=== PATIENT | male | born 1950 | race African-American/Black ===

== ENCOUNTER → 2023-07-24 09:31 | Outpatient (REF) | payer OTHER, SELFPAY | LOC: HWRAD 09:31 | PROVIDERS: ATTENDING PHYSICIAN Nurse Practitioner | DX: E04.1 Nontoxic single thyroid nodule (principal) | CPT/HCPCS: 76536 ==

== ENCOUNTER → 2023-08-15 10:11 | Outpatient (REF) | payer OTHER, SELFPAY | LOC: HWRCS 10:11 | PROVIDERS: ATTENDING PHYSICIAN Nurse Practitioner | DX: I10 Essential (primary) hypertension (principal) | CPT/HCPCS: 93306 ==

== ENCOUNTER → 2023-10-16 12:59 | Outpatient (REF) | payer OTHER, SELFPAY | LOC: HWRAD 12:59 | PROVIDERS: ATTENDING PHYSICIAN Specialist; FAMILY PHYSICIAN Nurse Practitioner | DX: N18.2 Chronic kidney disease, stage 2 (mild) (principal) | CPT/HCPCS: 76775 ==

== ENCOUNTER 2024-03-08 19:30 | Inpatient (IN) | payer OTHER, SELFPAY ==
[2024-03-08 13:42] VITALS: BP 165/95
[2024-03-08 14:11] LABS: % Basophils 0.5 % (0-2); % Immature Granulocytes 0.2 % (0-0.5); % Lymphocytes 27.8 % (20.5-51.1); % Monocytes 5.9 % (1.7-9.3); % Neutrophils 64.6 % (42.2-75.2); Absolute Eosinophils 0.1 10^3/uL (0-0.7); Absolute Lymphocytes 1.7 10^3/uL (1.2-3.4); Absolute Monocytes 0.4 10^3/uL (0.1-0.6); Absolute Neutrophils 3.9 10^3/uL (1.4-6.5); Hematocrit 41.8 % (39.0-52.0); Hemoglobin 14.3 g/dL (13.0-18.0); Mean Corp Hgb Conc. 34.2 g/dL (33.0-37.0); Mean Corpuscular Hgb 28.8 pg (27.0-31.0); Mean Corpuscular Volume 84.3 fL (80.0-94.0); Mean Platelet Volume 9.3 fL (7.4-10.4); Nucleated Red Blood Cells % 0 % (-); Platelet Count 303 10^3/uL (130-400); Red Blood Cell Count 4.96 10^6/uL (4.70-6.10); Red Cell Dist. Width 13.2 % (11.5-14.5); White Blood Cell Count 6.1 10^3/uL (4.8-10.8)
[2024-03-08 14:25] LABS: ALT (SGPT) 19 U/L (0-50); AST (SGOT) 27 U/L (17-59); Albumin 4.1 g/dl (3.5-5.0); Alkaline Phosphatase 95 U/L (38-126); Blood Urea Nitrogen 14 mg/dl (9-20); Calcium 9.8 mg/dl (8.4-10.2); Carbon Dioxide 28 mmol/L (22-30); Chloride 102 mmol/L (98-107); Glucose 121 mg/dl (70-99); Potassium 4.1 mmol/L (3.5-5.1); Sodium 141 mmol/L (135-145); Total Bilirubin 0.7 mg/dl (0.2-1.3); Total Protein 7.5 g/dl (6.3-8.2); eGFR 49.16
[2024-03-08 14:38] LABS: Troponin I < 0.012 ng/ml
[2024-03-08 15:58] LABS: Glucose - Point of Care 102 mg/dl (70-99)
[2024-03-08 16:00] VITALS: BP 176/98
--- NOTE | 2024-03-08 16:46 | ED.GENMED ---
History of Present Illness
General
Chief Complaint: Weakness
Time Seen by Provider: 03/08/24 16:32
History of Present Illness
History of Present Illness:
Patient presents to the emergency department with weakness and difficulty walking. He notes that his left arm feels very weak and he was having some difficulty with ambulation today. His notes that he has been seeing a neurologist for
worsening cognitive deficits recently. She notes that he has been leaning to his left while walking for months.
If applicable-neuro sx onset
Onset of symptoms known: No
Time pt last seen normal is known: No
Past History
Past History
ED Past Medical History: HTN and NIDDM
Social History
Personal:
Living: with family
Employment: Retired
Family History
Family History: Other
Phy Exam
Physical Exam
Physical Exam:
GENERAL APPEARANCE: NAD, well developed/ well nourished
EYES lids/conjunctiva normal
EARS/NOSE/THROAT Mucous membranes moist, uvula midline without oral pharyngeal erythema, exudate or swelling
HEAD/NECK normocephalic atraumatic, neck is supple.
RESPIRATORY respiratory effort normal, speaks in full sentences, no accessory muscle use. Lungs clear to auscultation without rhonchi, wheezes, rales
CARDIAC Regular rate and rhythm, no edema.
ABDOMINAL Soft, ND/NT. No pulsatile masses on exam, rebound tenderness, Sevilla sign or pain over Mcburney's point.
MUSCLES/EXTREMITIES No abnormal range of motion, no swelling.
SKIN Warm, pink and dry. No rashes
NEUROLOGICAL Speech is clear and appropriate. Normal level of consciousness. Cranial nerve exam notable for left-sided central facial nerve palsy. Otherwise cranial nerves II through XII are intact. There is weakness in the left upper extremity
with drift though he does not touch the bed. No ataxia. Sensation intact to light touch throughout.
PSYCH Normal mood and affect. Judgement/competence is appropriate
NIH Stroke Score
Level of Consciousness: 0 - Alert
LOC questions: 0-Answers both correctly
LOC Commands: 0-Performs both correctly
Best Gaze: 0-Normal
Visual Benedict: 0=Normal, no visual loss
Facial palsy: 1=Minor paralysis
Motor - Right Arm: 0=No drift 10 seconds
Motor - Left Arm: 1=Drift < 10 seconds
Motor - Right Le-No drift 5 seconds
Motor - Left Le-No drift 5 seconds
Limb Ataxia: 0-Absent
Sensation: 0-Normal
Best Language: 0-No aphasia
Dysarthria: 0-Normal
Extinction and Inattention: 0-No abnormality
Total Score:: 2
Course
Orders/Labs/Results
Orders:
Orders
03/08/24 13:44
ECG [Electrocardiogram (*1)] Urgent
Reason for Study: Fatigue / Weakness
03/08/24 13:45
EKG- Treatment ONCE
03/08/24 13:58
Complete Blood Count/With Diff Urgent
Comprehensive Metabolic Panel Urgent
Glycohemoglobin (HgbA1c) Urgent
Troponin I Urgent
03/08/24 16:55
CT Head W/o Iv Contrast Urgent
Comment:
Reason For Exam: L sided facial droop, l arm weakness
03/08/24 17:58
0.9% Sodium Chloride 500 ml [Nss] 500 ml IV BOLUS
03/08/24 17:59
Aspirin 325 mg PO NOW STA
03/08/24 18:46
Admit/Transfer Patient As Directed
Co-Sign Provider:
Level of Care: Inpatient admission
Assign to:: Telemetry
Physician / Group: Isaak Sylvester
Diagnosis: CVA/TIA
Reason for Telemetry: CVA/TIA
Date to Stop Telemetry: 03/11/24
Time to Stop Telemetry: 11:00
Reason for Hospitalization: CVA/TIA
Expected length of stay greater than two midnights?: Yes
ELOS- Estimated Length of Stay in days: 3
I certify the patient meets the requirements for IP care: Yes
03/08/24 18:47
Code Status As Directed
Resuscitation Status: Full Code
PRN Pain Medication Management As Directed
May give lesser potent ordered pain med per pt: Yes
preference::
Protocol:: Medication orders for pain may be administered in a
manner that supports deferring to patient preference
when the pt is:
- Requesting an ordered lesser potent pain medication.
Least to most potent pain medications are defined
as: acetaminophen < NSAID < tramadol < opioids
(morphine, oxycodone, hydromorphone).
- Requesting a lesser dose of the same medication IF
ORDERED.
- Requesting a less intrusive route of administration
if both routes are prescribed by the provider (PO <
IV).
03/08/24 19:43
Urinalysis Urgent
Date Specimen was Collected: 03/08/24
Time Specimen was Collected: 16:56
Urine Microscopic Urgent
Date Specimen was Collected: 03/08/24
Time Specimen was Collected: 16:56
03/08/24 20:24
Acetaminophen [Tylenol/Feverall] 650 mg RECTAL Q4HPRN PRN
Acetaminophen [Tylenol] 650 mg PO Q4HPRN PRN
03/08/24 20:24
Type+Screen Routine
Case Management Consult ONCE
Case Management Consult: Discharge Planning
Comment: stroke/tia
DIETARY CONSULT Routine
Reason for Consult: stroke/TIA
NEUROLOGY CONSULT Urgent
Consulting Provider: Rustam Ca
Was physician already notified: Yes
Live Out [place] Urgent
PTT Routine
Prothrombin Time Routine
Troponin I Routine
MRI Brain [MR Brain Without Contrast] Routine
Comment:
Reason For Exam: CVA/TIA
Recent pill cam endoscopy?: Yes
Activity As Directed
Activity Level: With Assistance
NIH Stroke Scale As Directed
Directions: Per protocol
Comment: every shift and with any change in condition or mental status
Neurological Checks As Directed
Frequency: q4h
Additional Instructions:: q4h x 24h upon admission to the floor, then qshift & with any change in condition
and mental status
Patient Education As Directed
Type: Stroke education packet
Comment: provide to patient and family
Pneumatic Compression Sleeves As Directed
Type: Knee high
Swallow Screening CVA/TIA ONLY As Directed
Comment: NPO until swallowing screening completed
If patient FAILS swallow screening:: NPO, Speech Therapy consult, Aspiration Precautions
If patient PASSES swallow screening, diet:: 2000 sandy/ 17 CHO Diabetic
Vital Signs As Directed
Frequency: Per unit guidelines
Weight As Directed
Frequency: Daily
Ot Eval And Treat Routine
Pt Eval And Treat Routine
Activity Level: With Assistance
Speech Therapy Eval & Treat Routine
DX Deep Vein Thrombosis Video Routine
03/08/24 22:00
Donepezil [Aricept] 5 mg PO HS
Quetiapine Fumarate [Seroquel] 25 mg PO HS
03/09/24 06:00
Cardiovascular Evaluation IN AM
Complete Blood Count/No Diff IN AM
03/09/24 08:00
Aspirin Chewable [Low Strength Aspirin] 81 mg PO DAILY
Atorvastatin [Lipitor] 80 mg PO DAILY
Cyanocobalamin [Vitamin B-12] 2,500 mcg PO DAILY
Furosemide [Lasix] 40 mg PO DAILY
Lisinopril [Zestril] 40 mg PO DAILY
Tamsulosin [Flomax] 0.4 mg PO DAILY
03/10/24 06:00
Complete Blood Count/No Diff IN AM
03/11/24 06:00
Complete Blood Count/No Diff IN AM
03/11/24 11:00
DC Protocol for Telemetry ONCE
03/13/24 08:00
Ergocalciferol [Drisdol (Vitamin D2)] 50,000 units PO FR
Abnormal Lab Results
03/08/24 03/08/24
13:58 15:57
Creatinine 1.5 H mg/dL
(0.7-1.3)
Glucose 121 H mg/dl
(70-99)
POC Glucose 102 H mg/dl
(70-99)
03/08/24 13:58
03/08/24 13:58
Vital Signs
Initial and Last Documented VS:
Initial Vital Signs
Temp Pulse Resp BP Pulse Ox
98.3 F 88 18 165/95 98
03/08/24 13:42 03/08/24 13:42 03/08/24 13:42 03/08/24 13:42 03/08/24 13:42
Last Documented Vital Signs
Temp Pulse Resp BP Pulse Ox
98.5 F 84 18 133/86 97
03/08/24 20:05 03/08/24 20:05 03/08/24 20:05 03/08/24 20:05 03/08/24 20:05
*Critical Care Note
Total Time (30-74mins, 75-104mins- exclusive of procedures): Not Applicable
ED Attending Note
ED Attending Note
ED Attending Note:
Patient presents with acute to subacute CVA. Unknown last well given he has been leaning to the left for quite some time and is unable to appreciate his left-sided facial. He is out of the window for TNK. Will workup for CVA
-
Portions of this chart may have been created with voice recognition software.� Occasional wrong word or��sound alike� substitutions may have occurred due to the inherent limitations of voice recognition software.
Discharge Plan
Departure
Patient Disposition: Admit
Date of Disposition: 03/08/24
Time of Disposition: 18:00
Admit to doctor: hospitalist
Presentation/result/management discussed w/ accepting MD/DO: Hospitalist
Discharge Problem:
Acute CVA (cerebrovascular accident), KVNG (acute kidney injury)
Interventions
Interventions:
*Risk Screen - Suicide Last Done: 03/08/24 16:18
*General Assessment Last Done: 03/08/24 13:42
*Neglect/Abuse Screening Last Done: 03/08/24 16:10
*ED COVID-19 Vaccine History Last Done: 03/08/24 16:10
*Nursing Disposition Last Done: 03/08/24 19:47
ED- Cardiac Assessment Last Done: 03/08/24 16:10
ED- Neurological Assessment Last Done: 03/08/24 18:01
ED- Pulmonary Assessment Last Done: 03/08/24 16:10
Discharge Date and Time
Discharge Date/Time: 03/08/24 19:48
[2024-03-08 18:00] VITALS: BP 147/95
[2024-03-08] MEDS: ASPIRIN 325 MG PO (18:02)
[2024-03-08] MEDS: NSS 500 IV (18:03)
--- NOTE | 2024-03-08 18:11 | HPS.HSE ---
Family Physician
-
Family Physician: LOBITO Dickens
Chief Complaint
-
weakness
History of Present Illness
Patient is a 73-year-old male with past medical history significant for hypertension, hyperlipidemia, PAD, type 2 diabetes, HFpEF, and chronic kidney disease who presented to [facility] for evaluation of acute onset weakness and difficulty
walking. Patient has been following with neurology recently for worsening cognitive deficits. reports patient has been leaning to left while walking for months. Patient reports recent chills with diarrhea last week. Denies any fever, cough,
shortness of breath, chest pain, nausea, vomiting, constipation, diarrhea or urinary symptoms.
Medical History
Past Medical History
Past Medical History: Reports Other
Additional Past Medical History:
hypertension
hyperlipidemia
PAD
type 2 diabetes
HFpEF
chronic kidney disease
Past Surgical History: Reports Other
Additional Past Surgical History:
left Achilles tendon
left hand surgery
Social History
Tobacco: Former Smoker
Alcohol: Former
Drug: None
Personal:
Living: With Family
Employment: Retired
Family History
Family History: Other (Father: CVA, Larynx cancer; Mother: Lung cancer; Sister; CVA, lung cancer; Brother: Brain cancer)
Allergies / Home Medications
Allergies reflects when Allergies were last updated in [facility].
Home Medications with original date entered in [facility]
Allergy/Medication List:
Allergies
Allergy/AdvReac Type Severity Reaction Status Date / Time
No Known Allergies Allergy Verified 03/08/24 13:44
Home Medications
aspirin 81 mg chewable tablet 81 mg PO DAILY 05/24/09
atorvastatin 80 mg tablet 80 mg PO DAILY 03/08/24
cholecalciferol (vitamin D3) 1,250 mcg (50,000 unit) tablet 1,250 mcg PO FR 03/08/24
cyanocobalamin (vitamin B-12) 2,500 mcg tablet 2,500 mcg PO DAILY 03/08/24
donepezil 5 mg tablet 5 mg PO HS 03/08/24
furosemide 40 mg tablet 40 mg PO DAILY 03/08/24
lisinopril 40 mg tablet 40 mg PO DAILY 03/08/24
metformin 500 mg tablet 1,000 mg PO BID 03/08/24
quetiapine 25 mg tablet 25 mg PO HS 03/08/24
semaglutide 2 mg/dose (8 mg/3 mL) subcutaneous pen injector (Ozempic) 2 mg SC SA 03/08/24
tamsulosin 0.4 mg capsule 0.4 mg PO DAILY 03/08/24
Review of Systems
-
History Source: Patient
Constitutional: Reports Chills
EENT: Reports No Symptoms
Respiratory: Reports No Symptoms
Cardiac: Reports No Symptoms
Abdomen/GI: Reports Diarrhea
: Reports No Symptoms
Musculoskeletal: Reports No Symptoms
Skin: Reports No Symptoms
Neurological: Reports Weakness
Endocrine: Reports No Symptoms
Hematologic/Lymphatic: Reports No Symptoms
Psych: Reports No Symptoms
Physical Exam
Vital Signs
Vital Signs
Temp Pulse Resp BP Pulse Ox
98.3 F 74 17 176/98 98
03/08/24 13:42 03/08/24 17:52 03/08/24 17:52 03/08/24 16:00 03/08/24 13:42
Physical Exam
General: Well Developed, Well Nourished, No Apparent Distress, Comfortable and Conversant
HEENT: NormoCephalic, Moist mucous membranes, Atraumatic, PERRLA, Hominy Conjunctivae, Nose Appears Normal and Ears Appear Normal
Respiratory: Clear and Non Labored Respirations; No Wheezes, Rales, Rhonchi or Crackles
Cardiac: S1/S2 and Regular Rhythm; No Murmur, Rub or Gallop
Breast: Deferred by me
GI: Soft, Non Tender, Non Distended and Normal Bowel Sounds; No Organomegaly
Rectal: Deferred by Provider
Genito-urinary: Deferred by me
Musculoskeletal: No Clubbing, No Cyanosis and No Edema
Skin: Warm and IV/Catheter Site; No Rash
Neuro: Awake, Alert, Nonfocal/grossly intact, Facial Droop (mild left sided droop) and Other (significant left sided weakness in upper and lower extremity)
Hematologic/Lymphatic: No Lymphadenopathy
Psych: Calm
Laboratory Results
-
03/08/24 13:58
03/08/24 13:58
Laboratory Results
Total Bilirubin 0.7 mg/dl (0.2-1.3) 03/08/24 13:58
AST 27 U/L (17-59) 03/08/24 13:58
ALT 19 U/L (0-50) 03/08/24 13:58
Alkaline Phosphatase 95 U/L (38-126) 03/08/24 13:58
Troponin I < 0.012 ng/ml 03/08/24 13:58
Data Reviewed
-
CT Scan: Report Reviewed by me (Head: No acute intracranial abnormalities. Small old right thalamic lacunar infarct. Findings again seen compatible with diffuse cortical atrophy with nonspecific white matter changes as described above.)
Medical Tests (Nuc Med, Echo, EKG etc): Report Reviewed by me (EKG: NORMAL SINUS RHYTHM NONSPECIFIC T WAVE ABNORMALITY ABNORMAL ECG WHEN COMPARED WITH ECG OF 20-JAN-2022 16:43, NONSPECIFIC T WAVE ABNORMALITY NOW EVIDENT IN INFERIOR LEADS)
Lab Data: Labs Reviewed by me (BUN 14, Creat 1.4, )
Impression/Plan
-
IMPRESSION/PLAN:
#CVA/TIA vs. infectious process
Acute onset weakness and difficulty walking
Leaning to left with walking for significant period of time
Head CT: cortical atrophy and old thalamic infarct
- Admit to telemetry
- Neuro checks
- NIH
- Consult Neurology
- MRI tomorrow
- Encourage oral fluids as tolerated
- PT/OT
#acute on chronic kidney disease
BUN 14, Creat 1.5
- acute in setting of likely dehydration
- follow BMP
#dementia
seeing Neurology outpatient
- continue donepezil and quetiapine
#benign hypertension
hypertensive 176/88
- continue furosemide, lisinopril
- monitor VS
#hyperlipidemia
#PAD
- continue atorvastatin
#type 2 diabetes
- hold metformin
- continue semaglutide
- Accuchecks AC & HS
- SSI
#HFpEF
Echo (08/2023): Normal left ventricular size, wall thickness and systolic function. LV ejection fraction is 60-65%.
- continue aspirin, and furosemide
- daily weights
Code Status: Full Code
DVT Prophylaxis: SCDs
[2024-03-08 19:00] VITALS: BP 172/86
--- NOTE | 2024-03-08 19:51 | W.PN.UPDATE ---
Update Note
Progress Note Update
Attending addendum:
73-year-old man with past medical history of:
hypertension,
hyperlipidemia,
PAD,
type 2 diabetes,
HFpEF,
chronic kidney disease
who comes in because of acute onset weakness and difficulty walking. He is followed by neurology for worsening cognitive deficits. reports patient has been leaning to left while walking for months. Patient reports recent chills with diarrhea
last week. Right now he denies any fever, cough, shortness of breath, chest pain, nausea, vomiting, constipation, diarrhea or urinary symptoms. Onset and nature of symptoms made him not eligible for TPA. He was comfortable at the time of my
interview.
Past Medical History
hypertension
hyperlipidemia
PAD
type 2 diabetes
HFpEF
chronic kidney disease
Past Surgical History: Reports Other
Additional Past Surgical History:
left Achilles tendon
left hand surgery
Physical Exam
General: Well Developed, Well Nourished, No Apparent Distress, Comfortable
HEENT: NormoCephalic, Moist mucous membranes, Atraumatic,
Respiratory: Clear and Non Labored Respirations; No Wheezes, Rales, Rhonchi or Crackles
Cardiac: S1/S2 and Regular Rhythm; No Murmur, Rub or Gallop
Neuro: Awake, Alert, Nonfocal/grossly intact,
mild left sided droop
left sided weakness in upper and lower extremity
Psych: Calm
CT Scan: No acute intracranial abnormalities.
Small old right thalamic lacunar infarct.
Findings again seen compatible with diffuse cortical atrophy with nonspecific white matter changes
IMPRESSION/PLAN:
1. CVA/TIA vs. infectious process activating old stroke
- Admit to telemetry
- Neuro checks
- NIH
- Consult Neurology
- MRI tomorrow
- Encourage oral fluids as tolerated
- PT/OT
Please see mid-level note for full details on the following:
acute on chronic kidney disease
dementia
benign hypertension
hyperlipidemia
PAD
type 2 diabetes
HFpEF
[2024-03-08 20:00] VITALS: BMI 35.7
[2024-03-08 20:05] VITALS: BP 133/86
[2024-03-08 20:23] LABS: Urine Albumin 3+ (Neg - Trace); Urine Bilirubin Negative (Negative); Urine Character Clear (Clear); Urine Color Amber; Urine Glucose Trace (Negative); Urine Ketone Negative (Negative); Urine Leukocyte Negative (Negative); Urine Nitrite Negative (Negative); Urine Occult Blood Trace (Negative); Urine Specific Gravity 1.025 (<1.030); Urine Urobilinogen Negative (Neg - 1+)
[2024-03-08 20:44] LABS: Urine Bacteria Few (Negative); Urine Hyaline Cast >15 /LPF (0-2); Urine Mucus Moderate; Urine Red Blood Cell 0-2 /HPF (0-2); Urine Squamous Cell 0-2 /LPF (Few); Urine White Cell 0-2 /HPF (0-5)
[2024-03-08] MEDS: ARICEPT PO (21:46)
[2024-03-08] MEDS: SEROQUEL PO (21:46)
--- NOTE | 2024-03-08 21:47 | PTCARENOTE ---
Addendum entered by Melyssa Solares RN 03/09/24 00:59:
Patient bed alarm sounded, patient laying across end of the bed stating he has to get up to the bathroom. Patient assisted to sit on the side of the bed and use urinal. Patient very weak, unable to hold self up on side of bed. Patient apologetic
about earlier behavior and now agreeable to take meds and participate in NIH. All missed labs already retimed for the morning by pharmacy. Bed alarm remains in place for patient safety.
Original Note:
Received pt from ED @ 1999. Pt pulled over to bed, VSS. Pt oriented X3. When in to draw blood, patient quickly became agitated and confused, refusing blood work to be drawn. Attempted to reorient patient to situation and explain plan of care but
patient very argumentative and increasingly agitated. Returned thirty minutes later to attempt to give meds and perform NIH. Patient refusing to take meds and participate in NIH, stating 'why?' and 'I don't like your attitude' when asked to do
anything. Patient attempting to get OOB, is able to move all extremities with good strength to sit up and scoot up in the bed. Bed alarm in place for patient safety.
[2024-03-09] VITALS (8 sets, daily range): BP systolic 170–191; BP diastolic 85–106; BMI 35.7
[2024-03-09] MEDS: ARICEPT 5 MG PO ×2 (00:48→20:29)
[2024-03-09] MEDS: SEROQUEL 25 MG PO ×2 (00:48→20:29)
--- NOTE | 2024-03-09 08:17 | CON.NEURO ---
Neuro Assessment/Plan
Assessment
Acute onset of left arm and leg weakness
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
Plan
Check MRI of the brain as planned
Check MRA head and neck, as CTA is at risk of causing additional renal injury
Provide aspirin and initiate clopidogrel due to risk of acute ischemic stroke
Goal of permissive hypertension until 24 hours after onset of symptoms, then normotension
Atorvastatin 80 mg daily
Medical educational materials to be provided
DVT prophylaxis
Goal of normoglycemia
Rehabilitation evaluations
Continue cyanocobalamin
Continue donepezil 5 mg daily
Likely will need case management evaluation as the patient has a history of medical noncompliance
Will follow
Consultation
Order
Date of Consultation: 03/09/24
Requesting Provider:
Reason for Consult:
Subjective/Objective
Subjective Data
Date of Service: March 09, 2024
Adapted from outpatient records with last evaluation by my former esteemed colleague:
'Start Donepezil HCl Tablet, 5 MG, 1 tablet at bedtime, Orally, Once a day, 30 days, 30, Refills 5
PROCEDURE: Neuropsychology
Notes: -willing to restart Aricept 5mg qhs; reviewed potential s/e, how medication works and what the goals of taking it are
-does not want any medication for mood
-willing to get [employer] testing done; reviewed process, location of testing, how to set it up
-reviewed differential for memory issues, how untreated sleep apnea can contribute; I will ask my office to see what the next step is to get him a CPAP
Follow Up
4 Weeks
History of Present Illness
Memory Loss:
Evaluation from Dr. Ca:
'History from patient
Since last visit:
09/2023
Unable to walk normally since 2021
Mood decline
Didn't perform Neuropsychological testing
Prior evaluation: presentation to PCP, Neurosurgeon x 2
Previous testing: blood work
CT of head
MRI of brain October 2021, no evidence of normal pressure hydrocephalus, suggestion of subacute to chronic left parietal ischemic stroke by official report
[employer] Cognitive Testing 12/2021 demonstrated significantly below expected cognitive function compared with matched peers (81%).
There was an associated mood disorder in the form of depression by survey performed with the [employer] test.
MRA neck and head: 08/2022 no stenosis
Prior medication(s): Donepezil
Side-effects with medications: N/A
Previous treatment(s): none
Frequency: Fell once in September 2021
Intensity: N/A
Duration: chronic
Duration of symptom: intermittent
Etiology: presumed to not be due to normal pressure hydrocephalus; behavioral-variant frontotemporal dementia (bv-FTD)
Associated symptom(s): Gait dysfunction, short-term memory, intermittent mood issues
Driving status: issues out of batool at times, reduced driving since 09/2021
Financial status: no issues --> no issues
Hobbies: no issues --> none
Improving factors: unclear to patient
Worsening factors: unclear to patient
Unchanged by factors: unclear to patient
Severity: significant
~~~~
Right-Handed
Began (prior to initial evaluation in this office):
12/2021
Incontinence of urine since 2020, known untreated prostate issue
Memory loss started 07/2021, unclear if progressive, patient disagrees that same is present
Shuffling gait
Headaches lifelong, without significant change, most recent 6 months ago (06/2021)
09/2021 Fell head-first while walking then had CT of head
then met with Neurosurgery who suggested normal pressure hydrocephalus (NPH)
then MRI of brain which did show prior stroke according to Neurosurgery then met with second Neurosurgeon
at [place] who suggested absence of NPH
08/2022
[employer] Cognitive Testing completed
10/2022
Completed sleep study
Unable to afford CPAP
>> 12/2022
Ran out of medicine Donepezil
Didn't perform Neuropsychological testing'
10/29: He is switching to my practice. He did not start Aricept or medication for mood. He did not get [employer] testing done. He wanted to get a CPAP but found it expensive. He is willing to reconsider this.'
Patiient presented due to falling and inability to walk. Left-side is weak
Objective Data
Vital Signs
Temp Pulse Resp BP Pulse Ox
36.7 C 73 20 181/96 97
03/09/24 07:40 03/09/24 07:40 03/09/24 07:40 03/09/24 07:40 03/09/24 07:40
Lab Results
03/08/24 13:58
Sodium 141 mmol/L (135-145) 03/08/24 13:58
Potassium 4.1 mmol/L (3.5-5.1) 03/08/24 13:58
BUN 14 mg/dl (9-20) 03/08/24 13:58
Glucose 121 mg/dl (70-99) H 03/08/24 13:58
Calcium 9.8 mg/dl (8.4-10.2) 03/08/24 13:58
Patient Allergies
No Known Allergies Allergy (Verified 03/08/24 13:44)
CVA Assessment
Onset of Stroke Symptoms
Onset of symptoms known: Yes
Date of onset of symptoms: 03/09/24
Time of onset of symptoms: 05:00
Time pt last seen normal is known: Yes
Date last time pt seen normal: 03/08/24
Time last time pt seen normal: 19:00
NIH Stroke Score
Level of Consciousness: 0 - Alert
LOC Questions: 0-Answers both correctly
LOC Commands: 0-Performs both correctly
Best Horizontal Gaze: 0-Normal
Visual Benedict: 0=Normal, no visual loss
Facial Palsy: 0=Normal, symmetrical
Motor - Right Arm: 0=No drift 10 seconds
Motor - Left Arm: 1=Drift < 10 seconds
Motor - Right Le-No drift 5 seconds
Motor - Left Le-No drift 5 seconds
Limb Ataxia: 0-Absent
Sensation: 0-Normal
Best Language: 0-No aphasia
Dysarthria: 0-Normal
Extinction and Inattention: 0-No abnormality
Total Score:: 1
Tenecteplase Contraindications
Inclusion and Exclusion criteria reviewed: Yes
IAT Contraindications: NIHSS < 6
Review of Systems
-
Unable to obtain full review of systems at this time due to: Dementia
History Source: Patient
All other systems: Reviewed and negative
EENT: Blurry Vision; Negative Hearing Loss or Swallowing Difficulty
Respiratory: Negative Trouble Breathing
Cardiac: Negative Chest Pain
Abdomen/GI: Negative Incontinence of Stool
Genitourinary: Negative Incontinence
Physical Exam
-
General: No Apparent Distress, Obese and Appears Stated Age
Eyes: Round OU, Spur Conjunctivae and No Ptosis
HEENT: Anicteric and Moist Mucous Membranes
Neck: Full Range of Motion
Respiratory: No Dyspnea
Cardiac: No JVD
GI: Non-distended
Extremities: No Clubbing, No Cyanosis and No Edema
Psych: Negative Intact Judgement/Insight
Extended Neurological Exam
Mood & Affect: Negative Affect Unremarkable (Easily irritable)
Attention Span & Concentration: Awake, Alert and Interactive
Memory: Able to Recall (month and year) and Reduced (for current location, did not recall meeting this interviewer previously)
Tremor: Hand Tremor Absent and Head Tremor Absent
Involuntary Movement: None
Speech: Quality Unremarkable and Quantity Unremarkable
Cranial Nerve II: Left Eye: Pupillary Reactivity Unremarkable, Pupillary Size Unremarkable, Visual Benedict Intact and Smaller than Contralateral
Cranial Nerve II: Right Eye: Pupillary Reactivity Unremarkable, Pupillary Size Unremarkable and Visual Benedict Intact; Negative Smaller than Contralateral
Cranial Nerves III, IV, : Extraocular Movement: Extraocular Movement Full in all Directions
Cranial Nerve VII: Facial Symmetry: Normal Facial Symmetry
Cranial Nerve VIII: Hearing: Unremarkable Hearing to Normal Conversational Volume
Cranial Nerves IX, X: Palate Movement: Palate Elevation Symmetric
Cranial Nerve XI: Shoulder Shrug: Unremarkable
Cranial Nerve XII: Tongue Protusion: Midline
Muscle Strength, Overall: Full Throughout
Muscle Bulk & Tone: Bulk Unremarkable and Tone Unremarkable
Pronator Drift: Drift in Left Upper Extremity and No Drift in Lower Extremities; Negative Drift in Right Upper Extremity
Deep Tendon Reflexes: Absent Throughout
Touch Sensation: Unremarkable
Coordination: [id number] Testing Unremarkable
Babinski Sign: Absent Bilaterally
Data Reviewed
-
MRI Head: Report Reviewed and Image Reviewed
MRA Head: Report Reviewed
MRA Neck: Report Reviewed
Labs: Report Reviewed
Lipid Profile: Report Reviewed
Reviewed with: Physician and Patient
Old Records: Summarized
Medications
-
Active Medications
Generic Name Dose Route Start Last Admin
Trade Name Freq PRN Reason Stop Dose Admin
Acetaminophen 650 mg 03/08/24 20:24
Acetaminophen 650 Mg Rectal Suppository RECTAL 04/05/24 20:23
Q4HPRN PRN
SYKES, mild pain, or temp >100.4F
Acetaminophen 650 mg 03/08/24 20:24
Acetaminophen 325 Mg Tablet PO 04/05/24 20:23
Q4HPRN PRN
SYKES, mild pain, or temp >100.4F
Aspirin 81 mg 03/09/24 08:00
Aspirin 81 Mg Chewable Tablet PO 04/06/24 07:59
DAILY MAJOR
Atorvastatin Calcium 80 mg 03/09/24 08:00
Atorvastatin (Lipitor) 80 Mg Tablet PO 04/06/24 07:59
DAILY MAJOR
Cyanocobalamin 2,500 mcg 03/09/24 08:00
Cyanocobalamin 1,000 Mcg Tablet PO 04/06/24 07:59
DAILY MAJOR
Donepezil HCl 5 mg 03/08/24 22:00 03/09/24 00:48
Donepezil 5 Mg Tablet PO 04/05/24 21:59 5 mg
HS MAJOR Administration
Ergocalciferol 50,000 units 03/13/24 08:00
Ergocalciferol (Vitamin D-2) 94860 Units Capsule PO 04/10/24 07:59
FR MAJOR
Furosemide 40 mg 03/09/24 08:00
Furosemide 40 Mg Tablet PO 04/06/24 07:59
DAILY MAJOR
Lisinopril 40 mg 03/09/24 08:00
Lisinopril 20 Mg Tablet PO 04/06/24 07:59
DAILY MAJOR
Quetiapine Fumarate 25 mg 03/08/24 22:00 03/09/24 00:48
Quetiapine 25 Mg Tablet PO 04/05/24 21:59 25 mg
HS MAJOR Administration
Sodium Chloride 0 flush 03/08/24 22:00
Sodium Chloride 0.9% (Flush) Syringe IV 04/05/24 21:59
PER PROTOCOL MAJOR
Tamsulosin HCl 0.4 mg 03/09/24 08:00
Tamsulosin 0.4 Mg Capsule PO 04/06/24 07:59
DAILY MAJOR
Home Medications
�Medication �Instructions �Recorded
aspirin 81 mg chewable tablet 81 mg PO DAILY 05/24/09
atorvastatin 80 mg tablet 80 mg PO DAILY 03/08/24
cholecalciferol (vitamin D3) 1,250 1,250 mcg PO FR 03/08/24
mcg (50,000 unit) tablet
cyanocobalamin (vitamin B-12) 2,500 mcg PO DAILY 03/08/24
2,500 mcg tablet
donepezil 5 mg tablet 5 mg PO HS 03/08/24
furosemide 40 mg tablet 40 mg PO DAILY 03/08/24
lisinopril 40 mg tablet 40 mg PO DAILY 03/08/24
metformin 500 mg tablet 1,000 mg PO BID 03/08/24
quetiapine 25 mg tablet 25 mg PO HS 03/08/24
semaglutide 2 mg/dose (8 mg/3 mL) 2 mg SC SA 03/08/24
subcutaneous pen injector (Ozempic)
tamsulosin 0.4 mg capsule 0.4 mg PO DAILY 03/08/24
Past History
Past History
ED Past Medical History: HTN, NIDDM and Other (behavioral variant frontotemporal dementia, FEMI); Negative Renal failure (CKD2)
ED Past Surgical History: Orthopedic (left hand surgery (sutures)) and Other (achilles tendon repair)
Social History
Tobacco: Non-smoker
Alcohol: None
Personal:
Living: with family
Employment: Retired
Family History
Family History: Other (Reviewed and noncontributory)
[2024-03-09] MEDS: LASIX 40 MG PO (08:38)
[2024-03-09] MEDS: FLOMAX 0.4 MG PO (08:38)
[2024-03-09] MEDS: LOW STRENGTH ASPIRIN 81 MG PO (08:38)
[2024-03-09] MEDS: LIPITOR 80 MG PO (08:38)
[2024-03-09] MEDS: VITAMIN B-12 2500 MCG PO (08:38)
[2024-03-09] MEDS: ZESTRIL 40 MG PO (08:38)
[2024-03-09] MEDS: VITAMIN B1 100 MG PO (08:46)
[2024-03-09 09:13] LABS: Hematocrit 39.3 % (39.0-52.0); Hemoglobin 13.8 g/dL (13.0-18.0); Mean Corp Hgb Conc. 35.1 g/dL (33.0-37.0); Mean Corpuscular Hgb 29.2 pg (27.0-31.0); Mean Corpuscular Volume 83.1 fL (80.0-94.0); Mean Platelet Volume 9.4 fL (7.4-10.4); Platelet Count 302 10^3/uL (130-400); Red Blood Cell Count 4.73 10^6/uL (4.70-6.10); Red Cell Dist. Width 13.3 % (11.5-14.5); White Blood Cell Count 6.2 10^3/uL (4.8-10.8)
[2024-03-09 09:17] LABS: INR 0.98; PT 13.3 Sec (11.4-14.6)
[2024-03-09 09:18] LABS: APTT 28.5 Sec (23.4-35.0)
[2024-03-09 09:30] LABS: Troponin I < 0.012 ng/ml
[2024-03-09] MEDS: PLAVIX 300 MG PO (09:30)
[2024-03-09 09:35] LABS: HDL Cholesterol 39 mg/dl; LDL Cholesterol, Calculated 106 mg/dl; Total Cholesterol 166 mg/dl (50-199); Triglyceride 106 mg/dl (10-149); Very Low Density Lipoprotein 21 mg/dl (0-30)
[2024-03-09 09:48] LABS: Erythrocyte Sed Rate 75 mm/hour (0-20)
--- NOTE | 2024-03-09 10:29 | PTOTSP ---
Speech Therapy Evaluation:
Pt seen for bedside swallow evaluation. Pt presents with oropharyngeal swallow that is grossly WFL. Pt with mild L labial asymmetry, however does not appear to be impacting function. Recommend to continue current diet level. [employer] to follow pending
results of MRI.
Recommend:
1. Continue IDDSI Level 7 (regular) solids and thin liquids
2. Medications as tolerated
3. Partial assistance with meals (tray setup d/t L weakness)
4. General aspiration precautions
5. ST to follow - likely brief
--- NOTE | 2024-03-09 10:56 | CM ---
Spoke w/ pt's for information and to discuss d/c plan as pt is currently experiencing cognitive deficits. Initial assessment completed
Pt lives w/ spouse in a 2[facility]- steps to enter from the garage and 2 steps to enter from the garage.
Pt uses cane, no other DME identified
Per spouse, pt has no hx w/ SNF/VN/PT
Address, point of contacts and insurance verified.
PCP: Dr. Chava Cm
Pharmacy: [facility]
Denies financial insecurities
Per PT/OT eval, pt is currently being recommended for acute rehab at this time
Discussed w/ spouse rehab recommendation, spouse is agreeable and identified [facility] as the preferred location.
TT hospitalist re order for PM&R assessment
[facility] rehab referral completed in [facility], awaiting determination
Will need prior auth
Plan: Acute Rehab; spouse prefers [place]-
--- NOTE | 2024-03-09 12:10 | W.PN.HOSP.TC ---
Today's Communication/Plan
-
Dual AP
cont statin
permissive htn
acute rehab
Assessment / Plan
Assessment / Plan
General: Well Developed, Well Nourished, No Apparent Distress, Comfortable and Conversant
HEENT: NormoCephalic, Moist mucous membranes, Atraumatic, [place] Conjunctivae, Nose Appears Normal and Ears Appear Normal
Respiratory: Clear and Non Labored Respirations; No Wheezes, Rales, Rhonchi or Crackles
Cardiac: S1/S2 and Regular Rhythm; No Murmur, Rub or Gallop
Breast: Deferred by me
GI: Soft, Non Tender, Non Distended and Normal Bowel Sounds; No Organomegaly
Rectal: Deferred by Provider
Genito-urinary: Deferred by me
Musculoskeletal: No Clubbing, No Cyanosis and No Edema
Skin: Warm and IV/Catheter Site; No Rash
Neuro: Awake, Alert, Nonfocal/grossly intact, Facial Droop (mild left sided droop) and Other (significant left sided weakness in upper and lower extremity)
Hematologic/Lymphatic: No Lymphadenopathy
Psych: Calm
# Acute/subacute infarct in the right parietal lobe/centrum semioval region.
# History of CVA on the left parieto-occipital region
# History of frontotemporal dementia with behavioral variant
Acute onset weakness and difficulty walking
Leaning to left with walking for significant period of time
Head CT: cortical atrophy and old thalamic infarct
-MRI of the brain reviewed. MRI negative for acute stenosis or aneurysm.
-Plan to continue with dual antiplatelet agent for 21 days
-Unclear if patient was compliant with aspirin at home
-Continue with high-dose statin
-Monitor on telemetry. No evidence of arrhythmia noted
-Check A1c.
-PT/OT recommends acute rehab. Physiatry consulted.
-Continue donepezil and quetiapine
-Permissive HTN till am. Treat for SBP>210
#acute on chronic kidney disease
BUN 14, Creat 1.5
- acute in setting of likely dehydration
- follow BMP
#benign hypertension
- Hold furosemide, lisinopril
- monitor VS
#hyperlipidemia
#PAD
- continue atorvastatin
#type 2 diabetes
- hold metformin
- hold semaglutide
- Accuchecks AC & HS
- SSI
#Chronic HFpEF
Echo (08/2023): Normal left ventricular size, wall thickness and systolic function. LV ejection fraction is 60-65%.
- continue aspirin,
- daily weights
Code Status: Full Code
DVT Prophylaxis: SCDs/hep sc
d/w with neurology
d/w with physiatry
d/w with spouse over the phone in details.
Anticipated Discharge: Within 24 hours
Subjective/Interval History
-
Date of Service: March 09, 2024
eating lunch
remains with weakness
Objective Data
-
Labs:
Laboratory Results
03/09/24
08:48
WBC 6.2
Hgb 13.8
Hct 39.3
Plt Count 302
PT 13.3
INR 0.98
APTT 28.5
Vital Signs:
Vital Signs
Temp Pulse Resp BP Pulse Ox
98.1 F 73 20 181/96 97
03/09/24 07:40 03/09/24 07:40 03/09/24 07:40 03/09/24 07:40 03/09/24 08:40
I&O
03/08/24 03/09/24 03/10/24
06:59 06:59 06:59
Intake Total 120 / 120
Output Total 300 / 300
Balance -180 / -180
Data Reviewed
-
Total Time Spent with Patient (in minutes): 55
[2024-03-09 13:21] LABS: Rheumatoid Agglutinin Less Than 10 IU (<10 IU)
[2024-03-09 14:08] LABS: Glycohemoglobin (HgbA1c) 6.3 % (4.0-5.6)
[2024-03-09] MEDS: HEPARIN 5000 UNITS SC ×2 (15:09→23:09)
[2024-03-09 15:22] LABS: Glucose - Point of Care 155 mg/dl (70-99)
[2024-03-09] MEDS: NOVOLOG FLEXPEN-LOW RESISTANCE 1 UNITS SC (16:10)
--- NOTE | 2024-03-09 17:13 | CON.MD ---
Documented by User: Catherine Gallagher PA-C 03/09/24 20:58
Consultation - Medical
-
Referring Provider: Dr. Shiraz Durbin
Chief Complaint: CVA
History of Present Illness: Patient is a 73-year-old male with PMH of (hypertension, hyperlipidemia, PAD, type 2 diabetes, HFpEF, and chronic kidney disease) who presented to [facility] on 03/08/24 for evaluation of acute onset weakness and
difficulty walking. Patient has been following with neurology recently for worsening cognitive deficits. reports patient has been leaning to left while walking for months. CT scan of head No acute intracranial abnormalities. MRI of Brain-Small
to moderate-sized nonhemorrhagic acute/subacute infarct in the right parietal lobe/centrum semiovale region. Questionable small nonhemorrhagic subacute on chronic infarct in the left parieto-occipital periventricular region. He ambulates with RW
s/p left achilles tendon repair. Yet to use crutches due to safety concerns
MRA of Head/neck- Small to moderate-sized nonhemorrhagic acute/subacute infarct in the right parietal lobe/centrum semiovale region. Additional questionable small nonhemorrhagic subacute on chronic infarct in the left parieto-occipital
periventricular region. No focal hemodynamically significant stenosis, aneurysm or occlusion.
Per neurology: Acute onset of left arm and leg weakness. 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
Past Medical History: hypertension, hyperlipidemia, PAD, type 2 diabetes, HFpEF, and chronic kidney disease
Procedure History: left Achilles tendon, left hand surgery
Family History: non contributory
Social History:
Functional Level Premorbidly: Independent with all activities
Functional Level Currently: Bed mobility�supervision, ambulated 20 feet, 5 feet and 10 feet with rolling walker with supervision, Toileting�dependent, lower extremity self-care�dependent, toilet transfer�mod assist, bed mobility�mod assist,
Tobacco: Former
Alcohol: Former
Drug use: Denies
Lives with: Family
24-hour assistance available:
Number of floors: multi level
# steps to enter: 1
# steps to second floor: FF
Potential First floor set up: yes
Driving: yes
Occupation:works in construction and county agent
Allergies:
Allergy/AdvReac Type Severity Reaction Status Date / Time
No Known Allergies Allergy Verified 03/08/24 13:44
Review of Systems:
Constitutional: (x) Normal _
Eye: (x) Normal _
Ear/Nose/Throat: (x) Normal _
Respiratory: (x) Normal _
Cardiovascular: (x) Normal _
Gastrointestinal: (x) Normal _
Genitourinary: (x) acute on ckd
Musculoskeletal: (x) left sided weakness
Integumentary: (x) Normal _
Neurologic: (x) cva
Psychiatric: (x) dementia,impaired memory
Endocrine: (x) Normal _
Hematologic/Lymphatic: (x) Normal _
Allergic/Immunologic: (x) Normal _
Medications:
Active Current Visit Medication List
Category Date Time Status
Acetaminophen [Tylenol/Feverall] Med 03/08/24 20:24 Active
650 mg RECTAL Q4HPRN PRN
Acetaminophen [Tylenol] Med 03/08/24 20:24 Active
650 mg PO Q4HPRN PRN
Aspirin Chewable [Low Strength Aspirin] Med 03/09/24 08:00 Active
81 mg PO DAILY
Atorvastatin [Lipitor] Med 03/09/24 08:00 Active
80 mg PO DAILY
Clopidogrel Bisulfate [Plavix] Med 03/10/24 08:00 Active
75 mg PO DAILY
Cyanocobalamin [Vitamin B-12] Med 03/09/24 08:00 Active
2,500 mcg PO DAILY
Dextrose 50%-Water [Dextrose 50% Syringe] Med 03/09/24 14:42 Active
12.5 grams IV [id number] PRN
Donepezil [Aricept] Med 03/08/24 22:00 Active
5 mg PO HS
Ergocalciferol [Drisdol (Vitamin D2)] Med 03/13/24 08:00 Active
50,000 units PO FR
Flush (0.9% Sodium Chloride) [Flush (Nss)] Med 03/08/24 22:00 Active
See Dose Instructions IV PER PROTOCOL
Furosemide [Lasix] Med 03/09/24 08:00 Hold
40 mg PO DAILY
Glucagon [GlucaGen] Med 03/09/24 14:42 Active
1 mg IM PRN PRN
Heparin Med 03/09/24 16:00 Active
5,000 units SC Q8
Insulin Aspart Corrective Low [Novolog Flexpen-Low Med 03/09/24 16:30 Active
Resistance]
See Protocol SC AC
Lisinopril [Zestril] Med 03/09/24 08:00 Hold
40 mg PO DAILY
Quetiapine Fumarate [Seroquel] Med 03/08/24 22:00 Active
25 mg PO HS
Tamsulosin [Flomax] Med 03/09/24 08:00 Active
0.4 mg PO DAILY
Thiamine HCl [Vitamin B1] Med 03/09/24 09:00 Active
100 mg PO DAILY
Vitals:
Temp Pulse Resp BP Pulse Ox
98.6 F 92 18 180/95 97
03/09/24 15:06 03/09/24 15:06 03/09/24 15:06 03/09/24 15:06 03/09/24 15:06
Height 5 ft 7 in
Actual Weight 103.192 kg
Body Mass Index (BMI) 35.7
Patient is confused and not able to follow commands. Repeatedly said 'what do you want me to do?'
Physical Exam:
General Appearance/Observation: Well-developed, well-nourished individual in no apparent distress.
Pain/Comfort Assessment: Denies
Mood/Affect: confused, impairment
Integumentary/Operative Site:
Pressure Ulcer Evaluation: absent over heels.
Eyes: Conjunctiva/Lids: normal Pupils: pupils equal round
Ears/Nose/Throat: Lips/Teeth/Gums: normal
Neck: No muscle spasm or tenderness
Cardiovascular: Heart: regular, no murmur
Pulses: dorsalis pedis 2+ bilaterally
Respiratory: Respiratory Effort/Chest Expansion: normal Auscultation: Clear to auscultation bilaterally
Gastrointestinal: abdomen not tender, obese, normal abdominal bowel sounds
Genitourinary: Barrientos
Extremities: Edema: None Cyanosis: None Trophic changes: None
Neurology Exam:
Orientation: Alert, not oriented
Memory: impaired
Comprehension: confused
Two step command: impaired, slow processing .
Naming:
Cranial Nerves:
CNII: Pupillary light reflex: Intact Visual Field: NT
CN III, IV, : Extraocular muscles: Intact
CN V: Facial Sensation at Forehead: Intact, Maxilla: Intact, Mandible: Intact
CN VII: Facial movement: slight weakness on left
CN VIII: Hearing: Normal
CN IX/X: Speech & swallow: Normal, Position of Uvula:
CN XI: Shoulder shrug: weakness on left
CN XII: Tongue protrusion:
Sensory:
Light touch:
Reflexes:
Biceps: 2+ bilaterally
Brachioradialis: 2+ bilaterally
Triceps: 2+ bilaterally
Patellar: 1+ bilaterally
Achilles: absent bilaterally
Babinski: Down going bilaterally
Clonus: None
Thiago: Negative bilaterally
Cerebellar: Dysmetria/Ataxia: not tested
Musculoskeletal: not tested. Patient not cooperating
Tone: Normal in all extremities
Range of Motion: Passively within normal limits in all extremities
Lab Results
Labs
WBC 6.2 10^3/uL (4.8-10.8) 03/09/24 08:48
RBC 4.73 10^6/uL (4.70-6.10) 03/09/24 08:48
Hgb 13.8 g/dL (13.0-18.0) 03/09/24 08:48
Hct 39.3 % (39.0-52.0) 03/09/24 08:48
MCV 83.1 fL (80.0-94.0) 03/09/24 08:48
MCH 29.2 pg (27.0-31.0) 03/09/24 08:48
MCHC 35.1 g/dL (33.0-37.0) 03/09/24 08:48
RDW 13.3 % (11.5-14.5) 03/09/24 08:48
Plt Count 302 10^3/uL (130-400) 03/09/24 08:48
MPV 9.4 fL (7.4-10.4) 03/09/24 08:48
Abs Immat Gran (auto) 0.0 10^3/uL (0-0.05) 03/08/24 13:58
Absolute Neuts (auto) 3.9 10^3/uL (1.4-6.5) 03/08/24 13:58
Absolute Lymphs (auto) 1.7 10^3/uL (1.2-3.4) 03/08/24 13:58
Absolute Monos (auto) 0.4 10^3/uL (0.1-0.6) 03/08/24 13:58
Absolute Eos (auto) 0.1 10^3/uL (0-0.7) 03/08/24 13:58
Absolute Basos (auto) 0.0 10^3/uL (0-0.2) 03/08/24 13:58
Immature Gran % 0.2 % (0-0.5) 03/08/24 13:58
Neutrophils % 64.6 % (42.2-75.2) 03/08/24 13:58
Lymphocytes % 27.8 % (20.5-51.1) 03/08/24 13:58
Monocytes % 5.9 % (1.7-9.3) 03/08/24 13:58
Eosinophils % 1.0 % (0-6) 03/08/24 13:58
Basophils % 0.5 % (0-2) 03/08/24 13:58
Nucleated RBC % 0 % (-) 03/08/24 13:58
ESR 75 mm/hour (0-20) H 03/09/24 08:48
PT 13.3 Sec (11.4-14.6) 03/09/24 08:48
INR 0.98 03/09/24 08:48
APTT 28.5 Sec (23.4-35.0) 03/09/24 08:48
Sodium 141 mmol/L (135-145) 03/08/24 13:58
Potassium 4.1 mmol/L (3.5-5.1) 03/08/24 13:58
Chloride 102 mmol/L (98-107) 03/08/24 13:58
Carbon Dioxide 28 mmol/L (22-30) 03/08/24 13:58
BUN 14 mg/dl (9-20) 03/08/24 13:58
Creatinine 1.5 mg/dL (0.7-1.3) H 03/08/24 13:58
eGFR 49.16 03/08/24 13:58
Glucose 121 mg/dl (70-99) H 03/08/24 13:58
Hemoglobin A1c Cancelled 03/08/24 20:24
Calcium 9.8 mg/dl (8.4-10.2) 03/08/24 13:58
Ferritin Cancelled 03/09/24 08:48
Total Bilirubin 0.7 mg/dl (0.2-1.3) 03/08/24 13:58
AST 27 U/L (17-59) 03/08/24 13:58
ALT 19 U/L (0-50) 03/08/24 13:58
Alkaline Phosphatase 95 U/L (38-126) 03/08/24 13:58
Troponin I < 0.012 ng/ml 03/09/24 08:48
C-Reactive Protein Cancelled 03/09/24 08:48
Total Protein 7.5 g/dl (6.3-8.2) 03/08/24 13:58
Albumin 4.1 g/dl (3.5-5.0) 03/08/24 13:58
Triglycerides 106 mg/dl (10-149) 03/09/24 08:48
Total Cholesterol 166 mg/dl (50-199) 03/09/24 08:48
LDL Cholesterol, Calc 106 mg/dl 03/09/24 08:48
VLDL Cholesterol, Calc 21 mg/dl (0-30) 03/09/24 08:48
HDL Cholesterol 39 mg/dl 03/09/24 08:48
Vitamin B12 Cancelled 03/09/24 08:48
Folate Cancelled 03/09/24 08:48
TSH (Reflex) Cancelled 03/09/24 08:48
Urine Color Clotilde 03/08/24 19:43
Urine Clarity Clear (Clear) 03/08/24 19:43
Urine pH 5.0 (5.0-9.0) 03/08/24 19:43
Ur Specific [place] 1.025 (<1.030) 03/08/24 19:43
Urine Ketones Negative (Negative) 03/08/24 19:43
Urine Occult Blood Trace (Negative) A 03/08/24 19:43
Urine Nitrite Negative (Negative) 03/08/24 19:43
Urine Bilirubin Negative (Negative) 03/08/24 19:43
Urine Urobilinogen Negative (Neg - 1+) 03/08/24 19:43
Ur Leukocyte Esterase Negative (Negative) 03/08/24 19:43
Urine RBC 0-2 /HPF (0-2) 03/08/24 19:43
Urine WBC 0-2 /HPF (0-5) 03/08/24 19:43
Ur Squamous Epith Cells 0-2 /LPF (Few) 03/08/24 19:43
Urine Bacteria Few (Negative) A 03/08/24 19:43
Hyaline Casts >15 /LPF (0-2) 03/08/24 19:43
Urine Mucus Moderate 03/08/24 19:43
Urine Glucose Trace (Negative) A 03/08/24 19:43
Urine Albumin 3+ (Neg - Trace) A 03/08/24 19:43
Rheumatoid Factor Less than 10 iu (<10 IU) 03/09/24 08:48
MARTINA IgG Screen Cancelled 03/09/24 08:48
POC Glucose 155 mg/dl (70-99) H 03/09/24 15:21
Blood Type O POS 03/09/24 08:48
Blood Type Confirm O POS 03/09/24 09:33
Antibody Screen Negative (Negative) 03/09/24 08:48
Diagnostic Results: as per HPI
Assessment:73-year-old male with PMH of (hypertension, hyperlipidemia, PAD, type 2 diabetes, HFpEF, and chronic kidney disease and dementia with left sided weakness found to have Acute/subacute infarct in the right parietal lobe/centrum semioval
region. History of CVA on the left parieto-occipital region.
Plan
PM&R PT/OT to increase independence with ADLs, improve balance, coordination, endurance, strength, mobility, community reintegration, decreased burden of care on others and family education.
CVA: Acute/subacute infarct in the right parietal lobe/centrum semioval region. History of CVA on the left parieto-occipital region. Aspirin and Plavix for 21 days followed by aspirin lifelong, statin, and blood pressure control (SBP less than 180
and diastolic less than 100 to participate with therapy for ischemic stroke). Continue to monitor neurologic status.
Left nondominant hemiparesis: High risk for falls and sliding out of chair/bed. Safety reinforced.
- Avoid using affected arm to help lift or pull patient as this will cause trauma to the shoulder.
HTN: furosemide, and lisinopril on hold
HLD/PAD: atorvastatin
CHF: Echo (08/2023): Normal left ventricular size, wall thickness and systolic function. LV ejection fraction is 60-65%.continue aspirin, daily weights
DM II: Accu-Cheks, insulin sliding scale, hold metformin, hold semaglutide. Accuchecks AC & HS
Psych/dementia: Psychology consult. Monitor mood, adjust medications as needed.
Skin: monitor for pressure sores/rashes/lesions.
Pain: acetaminophen or oxycodone as needed.
Acute on CKD: acute in setting of likely dehydration
Bowel: add Colace and Senna, PRN bisacodyl.
Bladder: Time void, PVRs, PRN straight cath. Tamsulosin
GI Prophylaxis: Pantoprazole
DVT Prophylaxis: mechanical and Heparin
Pulmonary: Incentive spirometry
Morbid obesity: Continue to family life counselor patient about diet adjustments to control obesity. Body habitus and increased force to move body and extremities causes further difficulty with functional tasks.
Safety: Continue to reinforce assistance with all transfers.
Code Status: Full code
Dispo (date/plan/equipment needs): Home with family care. Social history reviewed.
Functional and Medical Goals: Modified Independent with ADL�s, ambulation, transfers
Discharge Destination: Acute inpatient rehabilitation when medically stable and blood pressure under control.
Summary of recommendations: Patient with left hemiparesis due to Acute/subacute infarct in the right parietal lobe/centrum semioval region, ambulatory dysfunction s/p left achilles tendon repair would benefit from acute inpatient rehab for PT/OT to
increase independence with ADLs, improve balance, coordination, endurance, strength, mobility, community reintegration, decreased burden of care on others and family education.
-
CVA: Acute/subacute infarct in the right parietal lobe/centrum semioval region. History of CVA on the left parieto-occipital region. Aspirin and Plavix for 21 days (last dose ) followed by aspirin lifelong, statin, and blood pressure control
(SBP less than 180 and diastolic less than 100 to participate with therapy for ischemic stroke). Continue to monitor neurologic status.
Left nondominant hemiparesis: High risk for falls and sliding out of chair/bed. Safety reinforced.
- Avoid using affected arm to help lift or pull patient as this will cause trauma to the shoulder.
HTN: furosemide, and lisinopril- on hod. monitor VS
Achilles tendon repair: cont care per ortho.
Skin: monitor for pressure sores/rashes/lesions. Recommend multi podus for LLE when in bed
Pulmonary: Incentive spirometry
Pain: acetaminophen as needed.
Bowel: Colace and Senna, PRN bisacodyl.
Bladder: Time void, PVRs, PRN straight cath. Tamsulosin
GI Prophylaxis: recommend Pantoprazole
DVT Prophylaxis: mechanical and heparin 5000 sc q 8 hours
Thank you for allowing me to care for your patient. Please contact me with any questions or concerns.

Documented by User: Yunior Dickey MD 03/10/24 23:24
Consultation - Medical
-
Referring Provider: Dr. Shiraz Durbin
Chief Complaint: CVA
History of Present Illness: 73-year-old Right handed male with PMH (hypertension, hyperlipidemia, PAD, type 2 diabetes, HFpEF, and chronic kidney disease) who presented to [facility] ED on 03/08/24 for evaluation of acute onset weakness and
difficulty walking. Patient has been following with neurology recently for worsening cognitive deficits. reports patient has been leaning to left while walking for months. CT scan of head No acute intracranial abnormalities. MRI of Brain-Small
to moderate-sized nonhemorrhagic acute/subacute infarct in the right parietal lobe/centrum semiovale region. Questionable small nonhemorrhagic subacute on chronic infarct in the left parieto-occipital periventricular region. He ambulates with RW
s/p left achilles tendon repair. Yet to use crutches due to safety concerns
MRA of Head/neck- Small to moderate-sized nonhemorrhagic acute/subacute infarct in the right parietal lobe/centrum semiovale region. Additional questionable small nonhemorrhagic subacute on chronic infarct in the left parieto-occipital
periventricular region. No focal hemodynamically significant stenosis, aneurysm or occlusion.
Per neurology: Acute onset of left arm and leg weakness. 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
and daughter gave more info with his dementia history being mild.
Past Medical History: hypertension, hyperlipidemia, PAD, type 2 diabetes, HFpEF, and chronic kidney disease
Procedure History: left Achilles tendon, left hand surgery
Family History: non contributory
Social History:
Functional Level Premorbidly: Independent with all activities
Functional Level Currently: Bed mobility�supervision, ambulated 20 feet, 5 feet and 10 feet with rolling walker with supervision, Toileting�dependent, lower extremity self-care�dependent, toilet transfer�mod assist, bed mobility�mod assist,
Tobacco: Former
Alcohol: Former
Drug use: Denies
Lives with: Family
24-hour assistance available: yes
Number of floors: multi level
# steps to enter: 1
# steps to second floor: Full flight
Potential First floor set up: yes
Driving: yes
Occupation:works in construction and as a county agent
Allergies:
Allergy/AdvReac Type Severity Reaction Status Date / Time
No Known Allergies Allergy Verified 03/08/24 13:44
Review of Systems:
Constitutional: (x) abNormal _tired
Eye: (x) Normal _
Ear/Nose/Throat: (x) Normal _
Respiratory: (x) Normal _
Cardiovascular: (x) Normal _
Gastrointestinal: (x) Normal _
Genitourinary: (x) acute on ckd
Musculoskeletal: (x) left sided weakness, trouble walking
Integumentary: (x) Normal _
Neurologic: (x) cva
Psychiatric: (x) dementia,impaired memory, has some sundowning at baseline on Seroquel.
Endocrine: (x) Normal _
Hematologic/Lymphatic: (x) Normal _
Allergic/Immunologic: (x) Normal _
Medications:
Active Current Visit Medication List
Category Date Time Status
Acetaminophen [Tylenol/Feverall] Med 03/08/24 20:24 Active
650 mg RECTAL Q4HPRN PRN
Acetaminophen [Tylenol] Med 03/08/24 20:24 Active
650 mg PO Q4HPRN PRN
Aspirin Chewable [Low Strength Aspirin] Med 03/09/24 08:00 Active
81 mg PO DAILY
Atorvastatin [Lipitor] Med 03/09/24 08:00 Active
80 mg PO DAILY
Clopidogrel Bisulfate [Plavix] Med 03/10/24 08:00 Active
75 mg PO DAILY
Cyanocobalamin [Vitamin B-12] Med 03/09/24 08:00 Active
2,500 mcg PO DAILY
Dextrose 50%-Water [Dextrose 50% Syringe] Med 03/09/24 14:42 Active
12.5 grams IV [id number] PRN
Donepezil [Aricept] Med 03/08/24 22:00 Active
5 mg PO HS
Ergocalciferol [Drisdol (Vitamin D2)] Med 03/13/24 08:00 Active
50,000 units PO FR
Flush (0.9% Sodium Chloride) [Flush (Nss)] Med 03/08/24 22:00 Active
See Dose Instructions IV PER PROTOCOL
Furosemide [Lasix] Med 03/09/24 08:00 Hold
40 mg PO DAILY
Glucagon [GlucaGen] Med 03/09/24 14:42 Active
1 mg IM PRN PRN
Heparin Med 03/09/24 16:00 Active
5,000 units SC Q8
Insulin Aspart Corrective Low [Novolog Flexpen-Low Med 03/09/24 16:30 Active
Resistance]
See Protocol SC AC
Lisinopril [Zestril] Med 03/09/24 08:00 Hold
40 mg PO DAILY
Quetiapine Fumarate [Seroquel] Med 03/08/24 22:00 Active
25 mg PO HS
Tamsulosin [Flomax] Med 03/09/24 08:00 Active
0.4 mg PO DAILY
Thiamine HCl [Vitamin B1] Med 03/09/24 09:00 Active
100 mg PO DAILY
Vitals:
Temp Pulse Resp BP Pulse Ox
98.6 F 92 18 180/95 97
03/09/24 15:06 03/09/24 15:06 03/09/24 15:06 03/09/24 15:06 03/09/24 15:06
Height 5 ft 7 in
Actual Weight 103.192 kg
Body Mass Index (BMI) 35.7
Physical Exam:
General Appearance/Observation: Well-developed, well-nourished male in no apparent distress.
Pain/Comfort Assessment: Denies
Mood/Affect: appropriate
Integumentary/Operative Site: dry skin both feet.
Pressure Ulcer Evaluation: absent over heels.
Eyes: Conjunctiva/Lids: normal Pupils: pupils equal round
Ears/Nose/Throat: Lips/Teeth/Gums: normal
Neck: No muscle spasm or tenderness
Cardiovascular: Heart: regular, no murmur
Pulses: dorsalis pedis 2+ bilaterally
Respiratory: Respiratory Effort/Chest Expansion: normal Auscultation: Clear to auscultation bilaterally
Gastrointestinal: abdomen not tender, obese, normal abdominal bowel sounds
Genitourinary: Barrientos
Extremities: Edema: None Cyanosis: None Trophic changes: None
Neurology Exam:
Orientation: Alert, oriented to year, place, person with time. Not oriented to day off by 1 day. Able to tell president and [employer] quarterback with choices.
Memory: impaired
Comprehension: confused
Two step command: impaired, slow processing .
Naming: Intact
Able to read analog clock on wall correctly
Cranial Nerves:
CNII: Pupillary light reflex: Intact Visual Field: impaired on left
CN III, IV, : Extraocular muscles: Intact
CN V: Facial Sensation at Forehead: Intact, Maxilla: Intact, Mandible: Intact
CN VII: Facial movement: slight weakness on left
CN VIII: Hearing: Normal
CN IX/X: Speech & swallow: Normal, Position of Uvula: midline
CN XI: Shoulder shrug: weakness on left
CN XII: Tongue protrusion: midline
Sensory:
Light touch: intact both sides, has left extinction to double simultaneous stimulation.
Reflexes:
Biceps: 2+ bilaterally
Brachioradialis: 2+ bilaterally
Triceps: 2+ bilaterally
Patellar: 0 bilaterally
Achilles: absent bilaterally
Babinski: Down going bilaterally
Clonus: None
Thiago: Negative bilaterally
Cerebellar: Dysmetria/Ataxia: not tested
Musculoskeletal:
Motor: (Manual muscle scale 0-5)
Muscle SA EF WE EE FF FA HF KE DF EHL PF
Right� 5 5 5 5 5 5 4 5 5 5 5
Left 4 4 3 4 2 2 2 4 4 4 4
Tone: Normal in all extremities
Range of Motion: Passively within normal limits in all extremities
Lab Results
Labs
WBC 6.2 10^3/uL (4.8-10.8) 03/09/24 08:48
RBC 4.73 10^6/uL (4.70-6.10) 03/09/24 08:48
Hgb 13.8 g/dL (13.0-18.0) 03/09/24 08:48
Hct 39.3 % (39.0-52.0) 03/09/24 08:48
MCV 83.1 fL (80.0-94.0) 03/09/24 08:48
MCH 29.2 pg (27.0-31.0) 03/09/24 08:48
MCHC 35.1 g/dL (33.0-37.0) 03/09/24 08:48
RDW 13.3 % (11.5-14.5) 03/09/24 08:48
Plt Count 302 10^3/uL (130-400) 03/09/24 08:48
MPV 9.4 fL (7.4-10.4) 03/09/24 08:48
Abs Immat Gran (auto) 0.0 10^3/uL (0-0.05) 03/08/24 13:58
Absolute Neuts (auto) 3.9 10^3/uL (1.4-6.5) 03/08/24 13:58
Absolute Lymphs (auto) 1.7 10^3/uL (1.2-3.4) 03/08/24 13:58
Absolute Monos (auto) 0.4 10^3/uL (0.1-0.6) 03/08/24 13:58
Absolute Eos (auto) 0.1 10^3/uL (0-0.7) 03/08/24 13:58
Absolute Basos (auto) 0.0 10^3/uL (0-0.2) 03/08/24 13:58
Immature Gran % 0.2 % (0-0.5) 03/08/24 13:58
Neutrophils % 64.6 % (42.2-75.2) 03/08/24 13:58
Lymphocytes % 27.8 % (20.5-51.1) 03/08/24 13:58
Monocytes % 5.9 % (1.7-9.3) 03/08/24 13:58
Eosinophils % 1.0 % (0-6) 03/08/24 13:58
Basophils % 0.5 % (0-2) 03/08/24 13:58
Nucleated RBC % 0 % (-) 03/08/24 13:58
ESR 75 mm/hour (0-20) H 03/09/24 08:48
PT 13.3 Sec (11.4-14.6) 03/09/24 08:48
INR 0.98 03/09/24 08:48
APTT 28.5 Sec (23.4-35.0) 03/09/24 08:48
Sodium 141 mmol/L (135-145) 03/08/24 13:58
Potassium 4.1 mmol/L (3.5-5.1) 03/08/24 13:58
Chloride 102 mmol/L (98-107) 03/08/24 13:58
Carbon Dioxide 28 mmol/L (22-30) 03/08/24 13:58
BUN 14 mg/dl (9-20) 03/08/24 13:58
Creatinine 1.5 mg/dL (0.7-1.3) H 03/08/24 13:58
eGFR 49.16 03/08/24 13:58
Glucose 121 mg/dl (70-99) H 03/08/24 13:58
Hemoglobin A1c Cancelled 03/08/24 20:24
Calcium 9.8 mg/dl (8.4-10.2) 03/08/24 13:58
Ferritin Cancelled 03/09/24 08:48
Total Bilirubin 0.7 mg/dl (0.2-1.3) 03/08/24 13:58
AST 27 U/L (17-59) 03/08/24 13:58
ALT 19 U/L (0-50) 03/08/24 13:58
Alkaline Phosphatase 95 U/L (38-126) 03/08/24 13:58
Troponin I < 0.012 ng/ml 03/09/24 08:48
C-Reactive Protein Cancelled 03/09/24 08:48
Total Protein 7.5 g/dl (6.3-8.2) 03/08/24 13:58
Albumin 4.1 g/dl (3.5-5.0) 03/08/24 13:58
Triglycerides 106 mg/dl (10-149) 03/09/24 08:48
Total Cholesterol 166 mg/dl (50-199) 03/09/24 08:48
LDL Cholesterol, Calc 106 mg/dl 03/09/24 08:48
VLDL Cholesterol, Calc 21 mg/dl (0-30) 03/09/24 08:48
HDL Cholesterol 39 mg/dl 03/09/24 08:48
Vitamin B12 Cancelled 03/09/24 08:48
Folate Cancelled 03/09/24 08:48
TSH (Reflex) Cancelled 03/09/24 08:48
Urine Color Clotilde 03/08/24 19:43
Urine Clarity Clear (Clear) 03/08/24 19:43
Urine pH 5.0 (5.0-9.0) 03/08/24 19:43
Ur Specific [place] 1.025 (<1.030) 03/08/24 19:43
Urine Ketones Negative (Negative) 03/08/24 19:43
Urine Occult Blood Trace (Negative) A 03/08/24 19:43
Urine Nitrite Negative (Negative) 03/08/24 19:43
Urine Bilirubin Negative (Negative) 03/08/24 19:43
Urine Urobilinogen Negative (Neg - 1+) 03/08/24 19:43
Ur Leukocyte Esterase Negative (Negative) 03/08/24 19:43
Urine RBC 0-2 /HPF (0-2) 03/08/24 19:43
Urine WBC 0-2 /HPF (0-5) 03/08/24 19:43
Ur Squamous Epith Cells 0-2 /LPF (Few) 03/08/24 19:43
Urine Bacteria Few (Negative) A 03/08/24 19:43
Hyaline Casts >15 /LPF (0-2) 03/08/24 19:43
Urine Mucus Moderate 03/08/24 19:43
Urine Glucose Trace (Negative) A 03/08/24 19:43
Urine Albumin 3+ (Neg - Trace) A 03/08/24 19:43
Rheumatoid Factor Less than 10 iu (<10 IU) 03/09/24 08:48
MARTINA IgG Screen Cancelled 03/09/24 08:48
POC Glucose 155 mg/dl (70-99) H 03/09/24 15:21
Blood Type O POS 03/09/24 08:48
Blood Type Confirm O POS 03/09/24 09:33
Antibody Screen Negative (Negative) 03/09/24 08:48
Diagnostic Results: as per HPI
Assessment:
73-year-old right-handed male [facility] (hypertension, hyperlipidemia, PAD, type 2 diabetes, HFpEF, and chronic kidney disease and dementia with left sided weakness found to have Acute/subacute infarct in the right parietal lobe/centrum semioval region.
History of CVA on the left parieto-occipital region.
Plan
PM&R PT/OT to increase independence with ADLs, improve balance, coordination, endurance, strength, mobility, community reintegration, decreased burden of care on others and family education.
CVA: Acute/subacute infarct in the right parietal lobe/centrum semioval region. History of CVA on the left parieto-occipital region. Aspirin and Plavix for 21 days followed by aspirin lifelong, statin, and blood pressure control (SBP less than 180
and diastolic less than 100 to participate with therapy for ischemic stroke). Continue to monitor neurologic status.
Left nondominant hemiparesis: High risk for falls and sliding out of chair/bed. Safety reinforced.
- Avoid using affected arm to help lift or pull patient as this will cause trauma to the shoulder.
Dementia: Takes donepezil. Has sundowning and takes Seroquel. May benefit from a low-dose trazodone such as 25 mg in the early afternoon around 3:00 and 50 mg at bedtime to help with sleep and limit of agitation at night. Spoke with patient and
his who are willing to try this. It is noted try to get up on his own per discussion with nursing, needs reinforcement at times.
HTN: furosemide 40 mg, and lisinopril 40 mg
HLD: atorvastatin
PAD: atorvastatin, aspirin/plavix.
CHF: Echo (08/2023): Normal left ventricular size, wall thickness and systolic function. LV ejection fraction is 60-65%.continue aspirin, daily weights
DM II: Accu-Cheks, insulin sliding scale, hold metformin (has diarrhea with it), hold semaglutide. Accuchecks AC & HS
-Diabetic retinopathy: needs to have treatment as soon as he can, missed appointment while in hospital.
Psych: Psychology consult. Monitor mood, adjust medications as needed.
Skin: monitor for pressure sores/rashes/lesions.
Pain: acetaminophen as needed.
Acute on CKD: acute in setting of likely dehydration
Bowel: add Colace and Senna, PRN bisacodyl.
Bladder: Time void, PVRs, PRN straight cath. Tamsulosin
GI Prophylaxis: Pantoprazole
DVT Prophylaxis: mechanical and Heparin
Pulmonary: Incentive spirometry
Morbid obesity: Continue to family life counselor patient about diet adjustments to control obesity. Body habitus and increased force to move body and extremities causes further difficulty with functional tasks.
Safety: Continue to reinforce assistance with all transfers.
Code Status: Full code
Dispo (date/plan/equipment needs): Home with family care. Social history reviewed.
Functional and Medical Goals: Modified Independent with ADL�s, ambulation, transfers
Discharge Destination: Acute inpatient rehabilitation when medically stable and blood pressure under control.
Attending Statement:
I saw and examined the patient today. Reviewed care plan with patient, therapy, nursing, and physician travel assistant. I agree with the above subjective and physical exam, and plan as documented by NONI Gallagher with adjustments made as necessary. A
total of 60 minutes were spent with the patient preparing for the evaluation, obtaining history, performing examination and evaluation, counseling, data review, case management, care coordination, brand recorder, and EMR documentation.
Summary of recommendations:
Patient with left hemiparesis due to Acute/subacute infarct in the right parietal lobe/centrum semioval region, ambulatory dysfunction s/p left achilles tendon repair would benefit from acute inpatient rehab for PT/OT to increase independence with
ADLs, improve balance, coordination, endurance, strength, mobility, community reintegration, decreased burden of care on others and family education.
-
CVA: Acute/subacute infarct in the right parietal lobe/centrum semioval region. History of CVA on the left parieto-occipital region. Aspirin and Plavix for 21 days (last dose /) followed by aspirin lifelong, statin, and blood pressure control
(SBP less than 180 and diastolic less than 100 to participate with therapy for ischemic stroke). Continue to monitor neurologic status.
Left nondominant hemiparesis: High risk for falls and sliding out of chair/bed. Safety reinforced.
- Avoid using affected arm to help lift or pull patient as this will cause trauma to the shoulder.
HTN: furosemide, and lisinopril- on hod. monitor VS
Achilles tendon repair: cont care per ortho.
Skin: monitor for pressure sores/rashes/lesions.
Pulmonary: Incentive spirometry
Pain: acetaminophen as needed.
Bowel: Colace and Senna, PRN bisacodyl.
Bladder: Time void, PVRs, PRN straight cath. Tamsulosin
GI Prophylaxis: recommend Pantoprazole
DVT Prophylaxis: mechanical and heparin 5000 sc q 8 hours
Thank you for allowing me to care for your patient. Please contact me with any questions or concerns.
[2024-03-09 21:01] LABS: C-Reactive Protein < 5.00 mg/L (0.0-10.00)
[2024-03-09 21:21] LABS: Glucose - Point of Care 143 mg/dl (70-99)
[2024-03-09 21:32] LABS: TSH Reflex To Free T4 1.53 uIU/ml (0.47-4.68)
[2024-03-09 21:36] LABS: Ferritin 57.7 ng/ml (17.9-464.0)
[2024-03-09 22:07] LABS: Folate 6.1 ng/ml (2.76-20); Vitamin B12 884 pg/ml (239-931)
[2024-03-10] VITALS (8 sets, daily range): BP systolic 105–182; BP diastolic 73–110; O2SAT 97; BMI 36.1
[2024-03-10] MEDS: APRESOLINE 5 MG IV (04:30)
[2024-03-10 07:32] LABS: Glucose - Point of Care 121 mg/dl (70-99)
[2024-03-10] MEDS: NOVOLOG FLEXPEN-LOW RESISTANCE SC ×2 (07:44→11:48)
[2024-03-10] MEDS: HEPARIN 5000 UNITS SC ×2 (08:26→15:40)
[2024-03-10] MEDS: FLOMAX 0.4 MG PO (08:26)
[2024-03-10] MEDS: LOW STRENGTH ASPIRIN 81 MG PO (08:26)
[2024-03-10] MEDS: LIPITOR 80 MG PO (08:26)
[2024-03-10] MEDS: VITAMIN B-12 2500 MCG PO (08:27)
[2024-03-10] MEDS: PLAVIX 75 MG PO (08:27)
[2024-03-10] MEDS: VITAMIN B1 100 MG PO (08:27)
--- NOTE | 2024-03-10 08:31 | PN.CDI ---
CDI
- -
CDI:
Physician Documentation Request
Admit Date: 03/08/24 19:30
Dear Doctor Gifty,
Patient admitted for acute infarct.
03/09 Hospitalist PN: 'acute on chronic kidney disease, BUN 14, Creat 1.5 - acute in setting of likely dehydration - follow BMP'
The purpose of this query is not to question medical judgement, but to ensure the accuracy of the conditions reported for your patient.
There is either a lack of clinical support for this condition in the current medical record, or there is a lack of recognized standard criteria to support the condition.
Criteria for KVNG*
1 Increase in serum creatinine by > or = to 0.3 mg/dL (> or = to 26.5 micromol/L) within 48 hours, OR
2 Increase in serum creatinine to > or = to 1.5 times baseline, which is known or presumed to have occurred within 7 days, OR
3 Urine volume < 0.5 nL/kg/hour for six hours
The request is for one of the following:
- Additional documentation to support the condition. Indicate if this is in lieu of what may be considered standard criteria, and/or support why the standard criteria may not be present for this patient.
- A more appropriate diagnosis, reflecting the patient's condition
- Acute kidney disease remains a known or suspected condition for this patient and is further supported by (include additional documentation in the medical record)
- Acute kidney disease has been ruled out and a more appropriate diagnosis for this patient's condition is
- Other (please specify)
- Unable to determine
Use of terms such as suspected, likely, concern for, or probable (associated with a specific diagnosis that is being evaluated, monitored, or treated as if it exists) are acceptable and can be coded in the inpatient setting, when documented at the
time of discharge.
Thank you,
Susy Toledo RN, BSN
CDI Specialist
Available via [facility] text
Please use your independent medical judgment in providing your response.
[2024-03-10 08:59] LABS: Blood Urea Nitrogen 13 mg/dl (9-20); Calcium 9.7 mg/dl (8.4-10.2); Carbon Dioxide 26 mmol/L (22-30); Chloride 101 mmol/L (98-107); Estimated Creatinine Clearance 70 ml/min; Glucose 127 mg/dl (70-99); Potassium 3.6 mmol/L (3.5-5.1); Sodium 141 mmol/L (135-145); eGFR > 60.00
--- NOTE | 2024-03-10 10:00 | W.PN.NEURO.1 ---
Today's Communication / Plan
-
Provide aspirin and newly initiated clopidogrel due to acute ischemic stroke for 21 days, then clopidogrel alone (patient using ASA at home at time of stroke)
Goal of normotension
Atorvastatin 80 mg daily
Neuro Assessment/Plan
Assessment
Acute onset of left arm and leg weakness
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
Right parietal acute ischemic stroke by MRI of brain, no findings by MRA head and neck
Plan
Provide aspirin and newly initiated clopidogrel due to acute ischemic stroke for 21 days, then clopidogrel alone (patient using ASA at home at time of stroke)
Goal of normotension
Atorvastatin 80 mg daily
DVT prophylaxis
Goal of normoglycemia
Rehabilitation evaluations
Continue cyanocobalamin
Continue donepezil 5 mg daily
Likely will need case management evaluation as the patient has a history of medical noncompliance
Will follow as outpatient.
Subjective/Objective
Subjective Data
Date of Service: March 10, 2024
Improved strength.
Objective Data
Vital Signs
Temp Pulse Resp BP Pulse Ox
36.9 C 89 18 180/98 94
03/10/24 06:27 03/10/24 06:27 03/10/24 06:27 03/10/24 06:27 03/10/24 06:27
Lab Results
03/09/24 08:48
03/10/24 07:49
PT 13.3 Sec (11.4-14.6) 03/09/24 08:48
INR 0.98 03/09/24 08:48
APTT 28.5 Sec (23.4-35.0) 03/09/24 08:48
Sodium 141 mmol/L (135-145) 03/10/24 07:49
Potassium 3.6 mmol/L (3.5-5.1) 03/10/24 07:49
BUN 13 mg/dl (9-20) 03/10/24 07:49
Glucose 127 mg/dl (70-99) H 03/10/24 07:49
Calcium 9.7 mg/dl (8.4-10.2) 03/10/24 07:49
LDL Cholesterol, Calc 106 mg/dl 03/09/24 08:48
Vitamin B12 884 pg/ml (239-931) 03/09/24 20:32
Patient Allergies
No Known Allergies Allergy (Verified 03/08/24 13:44)
Review of Systems
-
Unable to obtain full review of systems at this time due to: Dementia
History Source: Patient
All other systems: Reviewed and negative
Neuro: Headache
Physical Exam
-
General: No Apparent Distress, Obese and Appears Stated Age
Eyes: Round OU, [place] Conjunctivae and No Ptosis
HEENT: Anicteric and Moist Mucous Membranes
Neck: Full Range of Motion
Respiratory: No Dyspnea
Cardiac: No JVD
GI: Non-distended
Extremities: No Clubbing, No Cyanosis and No Edema
Psych: Negative Intact Judgement/Insight
Extended Neurological Exam
Mood & Affect: Affect Unremarkable
Attention Span & Concentration: Awake, Alert and Interactive
Memory: Unable to Recall Personal History
Tremor: Hand Tremor Absent and Head Tremor Absent
Involuntary Movement: None
Speech: Quality Unremarkable and Quantity Unremarkable
Cranial Nerve II: Left Eye: Pupillary Size Unremarkable, Visual [place] Grossly Intact and Smaller than Contralateral
Cranial Nerve II: Right Eye: Pupillary Size Unremarkable and Visual [place] Grossly Intact; Negative Smaller than Contralateral
Cranial Nerves III, IV, : Extraocular Movement: Grossly Intact
Cranial Nerve VII: Facial Symmetry: Normal Facial Symmetry
Cranial Nerve VIII: Hearing: Unremarkable Hearing to Normal Conversational Volume
Muscle Bulk & Tone: Bulk Unremarkable and Tone Unremarkable
Pronator Drift: Drift in Left Upper Extremity; Negative Drift in Right Upper Extremity
Deep Tendon Reflexes: Absent Throughout
Touch Sensation: Unremarkable
Coordination: Reaches for Objects without Difficulty (with RUE)
Data Reviewed
-
MRI Head: Report Reviewed and Image Reviewed
Labs: Report Reviewed
Lipid Profile: Report Reviewed
Reviewed with: Physician and Patient
Old Records: Summarized
Past History
Past History
ED Past Medical History: CVA, HTN, NIDDM and Other (behavioral variant frontotemporal dementia, FEMI); Negative Renal failure (CKD2)
ED Past Surgical History: Orthopedic (left hand surgery (sutures)) and Other (achilles tendon repair)
Social History
Tobacco: Non-smoker
Alcohol: None
Personal:
Living: with family
Employment: Retired
Family History
Family History: Other (Reviewed and noncontributory)
Medications
-
Medications:
Generic Name Dose Route Start Last Admin
Trade Name Freq PRN Reason Stop Dose Admin
Acetaminophen 650 mg 03/08/24 20:24
Acetaminophen 650 Mg Rectal Suppository RECTAL 04/05/24 20:23
Q4HPRN PRN
SYKES, mild pain, or temp >100.4F
Acetaminophen 650 mg 03/08/24 20:24
Acetaminophen 325 Mg Tablet PO 04/05/24 20:23
Q4HPRN PRN
SYKES, mild pain, or temp >100.4F
Aspirin 81 mg 03/09/24 08:00 03/10/24 08:26
Aspirin 81 Mg Chewable Tablet PO 04/06/24 07:59 81 mg
DAILY MAJOR Administration
Atorvastatin Calcium 80 mg 03/09/24 08:00 03/10/24 08:26
Atorvastatin (Lipitor) 80 Mg Tablet PO 04/06/24 07:59 80 mg
DAILY MAJOR Administration
Clopidogrel Bisulfate 75 mg 03/10/24 08:00 03/10/24 08:27
Clopidogrel 75 Mg Tablet PO 03/30/24 08:01 75 mg
DAILY MAJOR Administration
Cyanocobalamin 2,500 mcg 03/09/24 08:00 03/10/24 08:27
Cyanocobalamin 1,000 Mcg Tablet PO 04/06/24 07:59 2,500 mcg
DAILY MAJOR Administration
Dextrose 12.5 grams 03/09/24 14:42
Dextrose 50% (0.5 Grams/Ml) 50 Ml Syringe IV 04/06/24 14:41
[id number] PRN
hypoglycemia
Protocol
Donepezil HCl 5 mg 03/08/24 22:00 03/09/24 20:29
Donepezil 5 Mg Tablet PO 04/05/24 21:59 5 mg
HS MAJOR Administration
Ergocalciferol 50,000 units 03/13/24 08:00
Ergocalciferol (Vitamin D-2) 27412 Units Capsule PO 04/10/24 07:59
FR MAJOR
Furosemide 40 mg 03/09/24 08:00 03/09/24 08:38
Furosemide 40 Mg Tablet PO 04/06/24 07:59 40 mg
DAILY MAJOR Administration
Glucagon 1 mg 03/09/24 14:42
Glucagon 1 Mg Vial IM 04/06/24 14:41
PRN PRN
hypoglycemia
Protocol
Heparin Sodium 5,000 units 03/09/24 16:00 03/10/24 08:26
Heparin 5,000 Units/Ml 1 Ml Vial SC 04/06/24 15:59 5,000 units
Q8 MAJOR Administration
Insulin Aspart 0 units 03/09/24 16:30 03/10/24 07:44
Insulin Aspart Low Resistance 300 Units/3 Ml Pen.Injctr SC 04/06/24 16:29 Not Given
AC MAJOR
Protocol
Lisinopril 40 mg 03/09/24 08:00 03/09/24 08:38
Lisinopril 20 Mg Tablet PO 04/06/24 07:59 40 mg
DAILY MAJOR Administration
Quetiapine Fumarate 25 mg 03/08/24 22:00 03/09/24 20:29
Quetiapine 25 Mg Tablet PO 04/05/24 21:59 25 mg
HS MAJOR Administration
Sodium Chloride 0 flush 03/08/24 22:00
Sodium Chloride 0.9% (Flush) Syringe IV 04/05/24 21:59
PER PROTOCOL MAJOR
Tamsulosin HCl 0.4 mg 03/09/24 08:00 03/10/24 08:26
Tamsulosin 0.4 Mg Capsule PO 04/06/24 07:59 0.4 mg
DAILY MAJOR Administration
Thiamine HCl 100 mg 03/09/24 09:00 03/10/24 08:27
Thiamine 100 Mg Tablet PO 03/11/24 08:01 100 mg
DAILY MAJOR Administration
[2024-03-10] MEDS: TYLENOL 1000 MG PO (10:31)
[2024-03-10 11:42] LABS: Glucose - Point of Care 122 mg/dl (70-99)
--- NOTE | 2024-03-10 11:58 | CM ---
Addendum entered by Mau Webber 03/10/24 15:26:
Spoke w/ insurance. Pt approved for acute rehab. 03/10 NRD 03/16
Auth ref# [id number]. [facility] to call [phone] for updates
Beltran/Juan M and hospitalist updated
Per Beltran, hold d/c until tomorrow to monitor BP. Requested pt to be given something to get bowel movement, TT hospitalist re this.
[facility]
Report: [phone]

Plan: [facility] when medically stable
Original Note:
Per hospitalist, pt is medically stable for d/c
Spoke w/ Beltran/Juan M re referral for pt. [facility] M may have a bed today, per Beltran for CM to start auth for today just in case
CM called [phone]-ask blue to initiate auth. Spoke w/ Cadence to begin auth, provided clinicals and pt information. Per Cadence, will have medical coding manager review as pt may not qualify for acute rehab. Cadence will give CM a call back w/ a determination.
--- NOTE | 2024-03-10 12:05 | W.PN.HOSP.TC ---
Today's Communication/Plan
-
medically stable
await placement
restart bp meds
cont asa/plavix
Assessment / Plan
Assessment / Plan
General: Well Developed, Well Nourished, No Apparent Distress, Comfortable and Conversant
HEENT: NormoCephalic, Moist mucous membranes, Atraumatic, [place] Conjunctivae, Nose Appears Normal and Ears Appear Normal
Respiratory: Clear and Non Labored Respirations; No Wheezes, Rales, Rhonchi or Crackles
Cardiac: S1/S2 and Regular Rhythm; No Murmur, Rub or Gallop
GI: Soft, Non Tender, Non Distended and Normal Bowel Sounds; No Organomegaly
Musculoskeletal: No Clubbing, No Cyanosis and No Edema
Skin: Warm and IV/Catheter Site; No Rash
Neuro: Awake, Alert, Nonfocal/grossly intact, Facial Droop (mild left sided droop) and Other (significant left sided weakness in upper and lower extremity)
Hematologic/Lymphatic: No Lymphadenopathy
Psych: Calm
# Acute/subacute infarct in the right parietal lobe/centrum semioval region.
# History of CVA on the left parieto-occipital region
# History of frontotemporal dementia with behavioral variant
Acute onset weakness and difficulty walking
Leaning to left with walking for significant period of time
Head CT: cortical atrophy and old thalamic infarct
-MRI of the brain reviewed. MRA negative for acute stenosis or aneurysm.
-Plan to continue with dual antiplatelet agent for 21 days and then stop aspirin and continue Plavix.
-Continue with high-dose statin
-Monitor on telemetry. No evidence of arrhythmia noted
-Check A1 at 6.3
-PT/OT recommends acute rehab. Physiatry consulted.
-Continue donepezil and quetiapine
-restart bp meds
#Elevated cr on chronic kidney disease
BUN 14, Creat 1.5 to 1.1 today
- follow BMP. Cr stabilized.
#benign hypertension
- restart furosemide, lisinopril
- monitor VS
#hyperlipidemia
#PAD
- continue atorvastatin
#type 2 diabetes
- hold metformin
- hold semaglutide
- Accuchecks AC & HS
- SSI
#Chronic HFpEF
Echo (08/2023): Normal left ventricular size, wall thickness and systolic function. LV ejection fraction is 60-65%.
- continue aspirin,
- daily weights
Code Status: Full Code
DVT Prophylaxis: SCDs/hep sc
d/w with spouse over the phone in details on 03/09/24
PT/OT-Acute rehab. await placement. Per CM, Bed tomm
Anticipated Discharge: Within 24 hours
Subjective/Interval History
-
Date of Service: March 10, 2024
states left side remains weak
eating breakfast
Objective Data
-
Labs:
Laboratory Results
03/10/24
07:49
Sodium 141
Potassium 3.6
Chloride 101
Carbon Dioxide 26
BUN 13
Creatinine 1.1
Glucose 127 H
Calcium 9.7
Vital Signs:
Vital Signs
Temp Pulse Resp BP Pulse Ox
98.6 F 105 18 152/95 99
03/10/24 11:18 03/10/24 11:18 03/10/24 11:18 03/10/24 11:18 03/10/24 11:18
I&O
03/09/24 03/10/24 03/11/24
06:59 06:59 06:59
Intake Total 120 / 120 840 / 840
Output Total 300 / 300 1600 / 1600
Balance -180 / -180 -760 / -760
Data Reviewed
-
Total Time Spent with Patient (in minutes): 52
[2024-03-10] MEDS: LASIX 40 MG PO (12:50)
[2024-03-10] MEDS: ZESTRIL 40 MG PO (12:50)
[2024-03-10 16:32] LABS: Glucose - Point of Care 154 mg/dl (70-99)
[2024-03-10] MEDS: NOVOLOG FLEXPEN-LOW RESISTANCE 1 UNITS SC (16:34)
[2024-03-10 21:40] LABS: Glucose - Point of Care 129 mg/dl (70-99)
[2024-03-10] MEDS: ARICEPT 5 MG PO (21:46)
[2024-03-10] MEDS: SEROQUEL 25 MG PO (21:46)
[2024-03-11] MEDS: HEPARIN 5000 UNITS SC ×2 (00:19→08:22)
--- NOTE | 2024-03-11 03:24 | PTCARENOTE ---
Patient refused 3am vitals.
--- NOTE | 2024-03-11 04:58 | PTCARENOTE ---
Bp 181/94 at 23:30. Patient denies headache or blurred vision. Patient agitated about being woken up for vitals signs. reported to OFFICE ASSISTANCE. No new orders at current time but to monitor.
[2024-03-11 05:42] VITALS: BMI 36.7
[2024-03-11 07:00] VITALS: BP 155/92
[2024-03-11 07:10] LABS: Glucose - Point of Care 129 mg/dl (70-99)
[2024-03-11] MEDS: NOVOLOG FLEXPEN-LOW RESISTANCE SC ×2 (07:31→11:52)
[2024-03-11] MEDS: LASIX 40 MG PO (08:20)
[2024-03-11] MEDS: LOW STRENGTH ASPIRIN 81 MG PO (08:21)
[2024-03-11] MEDS: VITAMIN B1 100 MG PO (08:21)
[2024-03-11] MEDS: PLAVIX 75 MG PO (08:21)
[2024-03-11] MEDS: VITAMIN B-12 2500 MCG PO (08:21)
[2024-03-11] MEDS: FLOMAX 0.4 MG PO (08:21)
[2024-03-11] MEDS: LIPITOR 80 MG PO (08:22)
[2024-03-11] MEDS: ZESTRIL 40 MG PO (08:22)
--- NOTE | 2024-03-11 10:53 | CM ---
Spoke w/ Beltran/Juan M, pt can admit at any time today. Hospitalist agreeable to d/c
Updated pt's who is on her way to the hospital
Verbally reviewed IMM w/ pt's as pt has dementia. Copy left in pt's room as requested, copy placed in chart
[facility]
Report: [phone]

Plan: [facility]
--- NOTE | 2024-03-11 10:53 | W.PN.HOSP.TC ---
Today's Communication/Plan
-
dc to walker
Asa/plavix
bp control
Assessment / Plan
Assessment / Plan
General: Well Developed, Well Nourished, No Apparent Distress, Comfortable and Conversant
HEENT: NormoCephalic, Moist mucous membranes, Atraumatic, [place] Conjunctivae, Nose Appears Normal and Ears Appear Normal
Respiratory: Clear and Non Labored Respirations; No Wheezes, Rales, Rhonchi or Crackles
Cardiac: S1/S2 and Regular Rhythm; No Murmur, Rub or Gallop
GI: Soft, Non Tender, Non Distended and Normal Bowel Sounds; No Organomegaly
Musculoskeletal: No Clubbing, No Cyanosis and No Edema
Skin: Warm and IV/Catheter Site; No Rash
Neuro: Awake, Alert, Nonfocal/grossly intact, Facial Droop (mild left sided droop) and Other (significant left sided weakness in upper and lower extremity)
Hematologic/Lymphatic: No Lymphadenopathy
Psych: Calm
# Acute/subacute infarct in the right parietal lobe/centrum semioval region.
# History of CVA on the left parieto-occipital region
# History of frontotemporal dementia with behavioral variant
Acute onset weakness and difficulty walking
Leaning to left with walking for significant period of time
Head CT: cortical atrophy and old thalamic infarct
-MRI of the brain reviewed. MRA negative for acute stenosis or aneurysm.
-Plan to continue with dual antiplatelet agent for 21 days and then stop aspirin and continue Plavix.
-Continue with high-dose statin
-Monitor on telemetry. No evidence of arrhythmia noted
-Check A1 at 6.3
-PT/OT recommends acute rehab. Physiatry consulted.
-Continue donepezil and quetiapine
-restart bp meds
#Elevated cr on chronic kidney disease
BUN 14, Creat 1.5 to 1.1
- follow BMP. Cr stabilized.
#benign hypertension
- restart furosemide, lisinopril
- monitor VS. Start low dose norvasc 2.5mg qhs.
#hyperlipidemia
#PAD
- continue atorvastatin
#type 2 diabetes
- restart metformin
- restart semaglutide
- Accuchecks AC & HS
- SSI
#Chronic HFpEF
Echo (08/2023): Normal left ventricular size, wall thickness and systolic function. LV ejection fraction is 60-65%.
- continue aspirin,
- daily weights
Code Status: Full Code
DVT Prophylaxis: SCDs/hep sc
d/w with spouse over the phone in details on 03/09/24
PT/OT-Acute rehab.
More than 30 minutes spent in discharge including
Final examination of the patient
Summarizing hospital stay
Instructions for continuing care to all relevant caregivers
Preparation of discharge records, prescriptions, and referral forms
Total time spent (in minutes): 52
Anticipated Discharge: Today
Subjective/Interval History
-
Date of Service: March 11, 2024
states had bm yesterday
left sided weakness remains same
tolerating diet
BP elevated at nightime
Objective Data
-
Labs:
Laboratory Results
03/11/24
10:17
Sodium Pending
Potassium Pending
Chloride Pending
Carbon Dioxide Pending
BUN Pending
Creatinine Pending
Glucose Pending
Calcium Pending
Vital Signs:
Vital Signs
Temp Pulse Resp BP Pulse Ox
98.3 F 81 20 155/92 100
03/11/24 07:00 03/11/24 08:20 03/11/24 07:00 03/11/24 08:20 03/11/24 07:00
I&O
03/10/24 03/11/24 03/12/24
06:59 06:59 06:59
Intake Total 840 / 840 840 / 840
Output Total 1600 / 1600 725 / 725
Balance -760 / -760 115 / 115
--- NOTE | 2024-03-11 10:59 | W.DCSUMMARY ---
Discharge Summary
Discharge Data
Date of Admission: 03/08/24
Date of Discharge: 03/11/24
-
Pending Results: No
Hospital Course
73-year-old male past medical history of CVA on the left parieto-occipital region, frontotemporal dementia with behavioral variant, primary hypertension, hyperlipidemia, diabetes mellitus, chronic HFpEF, morbid obesity due to excess calories,
suspected chronic kidney disease who is presented with left-sided weakness. Patient underwent CT of the head on admission which showed cortical atrophy and old thalamic infarct. MR brain showed small to moderate-sized nonhemorrhagic acute/subacute
infarct in the right parietal lobe/centrum semiovale region. Additional questionable small nonhemorrhagic subacute on chronic infarct in the left parieto-occipital periventricular region. No focal hemodynamically significant stenosis, aneurysm or
occlusion. Patient was continued on aspirin and Plavix was added. Patient was evaluated by neurology. Plan would be for dual antiplatelet agents for 21 days and then stop aspirin continue Plavix. Patient also with elevated blood pressure and
Norvasc was added nightly. Statin was continued. Patient was eval by physical and Occupational Therapy. Patient had no arrhythmias on telemetry. Patient will be discharged to acute rehab.
Discharge Plan
-
Patient Disposition: Acute Rehab Facility
Discharge Diagnosis/Procedures: acute/subacute infarct in the right parietal lobe/centrum semiovale region.
Elevated creatinine chronic kidney disease
Primary hypertension elevated
Condition: Fair
Diet: 2 Gram Sodium and Diabetic, Carb Controlled
Activity: With assistance and As tolerated
Driving Restrictions: No driving
Activity Restrictions/Additional Instructions:
Provide aspirin and newly initiated clopidogrel due to acute ischemic stroke for 21 days, then clopidogrel alone (patient using ASA at home at time of stroke)
Referrals:
Chava Cm CRNP [Family Provider] - in less than 1 week
Prescriptions:
New
clopidogrel 75 mg Tablet
75 mg PO DAILY Qty: 30 0RF
Rx Instructions:
take aspirin and newly initiated clopidogrel due to acute ischemic stroke for 21 days tehn clopidogrel alone
amlodipine [Norvasc] 2.5 mg tablet
2.5 mg PO HS Qty: 30 0RF
Continued
quetiapine 25 mg Tablet
25 mg PO HS
furosemide 40 mg Tablet
40 mg PO DAILY
atorvastatin 80 mg Tablet
80 mg PO DAILY
donepezil 5 mg Tablet
5 mg PO HS
tamsulosin 0.4 mg Capsule
0.4 mg PO DAILY
lisinopril 40 mg Tablet
40 mg PO DAILY
cholecalciferol (vitamin D3) 1,250 mcg (50,000 unit) Tablet
1,250 mcg PO FR
cyanocobalamin (vitamin B-12) 2,500 mcg Tablet
2,500 mcg PO DAILY
Ozempic 2 mg/dose (8 mg/3 mL) Pen Injector
2 mg SC SA
metformin 500 MG tablet
1,000 mg PO BID
aspirin 81 MG tablet,chewable
81 mg PO DAILY 18 Days Qty: 18 0RF
Rx Instructions:
FOR 18 DAYS
Discharge Orders:
Discharge Patient (As Directed); Ordered 03/11/24
Ordered By: Shiraz Durbin
Discharge Date and Time
Discharge Date/Time: 03/11/24 14:11
Print Language: UKRA[place]
[2024-03-11 11:00] VITALS: BP 135/91
[2024-03-11 11:51] LABS: Glucose - Point of Care 142 mg/dl (70-99)
[2024-03-11 11:59] LABS: Blood Urea Nitrogen 16 mg/dl (9-20); Calcium 9.3 mg/dl (8.4-10.2); Carbon Dioxide 27 mmol/L (22-30); Chloride 101 mmol/L (98-107); Estimated Creatinine Clearance 60 ml/min; Glucose 179 mg/dl (70-99); Potassium 3.5 mmol/L (3.5-5.1); Sodium 141 mmol/L (135-145); eGFR 58.37
[2024-03-12 01:30] LABS: ANA, IgG Reflex to HEp-2 None Detected (None Detected)
== END 2024-03-11 14:11 | DRG 65 ==
LOC: 4 WEST ACU 19:30
PROVIDERS: Emergency Medicine; Nurse Practitioner Family; ADMITTING PHYSICIAN Internal Medicine; ATTENDING PHYSICIAN Hospitalist; CONSULT PHYSICIAN Physical Medicine & Rehabilitation; CONSULT PHYSICIAN Psychiatry & Neurology Neurology; EMERGENCY PHYSICIAN Emergency Medicine
DX: I63.9 Cerebral infarction, unspecified (principal); F02.818 Dementia in other diseases classified elsewhere, unspecified severity, with other behavioral disturbance; I13.0 Hypertensive heart and chronic kidney disease with heart failure and stage 1 through stage 4 chronic kidney disease, or unspecified chronic kidney disease; I50.32 Chronic diastolic (congestive) heart failure; G81.94 Hemiplegia, unspecified affecting left nondominant side; F05 Delirium due to known physiological condition; R29.810 Facial weakness; N18.9 Chronic kidney disease, unspecified; E11.22 Type 2 diabetes mellitus with diabetic chronic kidney disease; E11.319 Type 2 diabetes mellitus with unspecified diabetic retinopathy without macular edema; E66.09 Other obesity due to excess calories; Z68.36 Body mass index [BMI] 36.0-36.9, adult; E78.5 Hyperlipidemia, unspecified; R26.2 Difficulty in walking, not elsewhere classified; Z87.891 Personal history of nicotine dependence; Z80.2 Family history of malignant neoplasm of other respiratory and intrathoracic organs; Z80.1 Family history of malignant neoplasm of trachea, bronchus and lung; Z82.3 Family history of stroke; Z80.8 Family history of malignant neoplasm of other organs or systems; Z79.82 Long term (current) use of aspirin; Z86.73 Personal history of transient ischemic attack (TIA), and cerebral infarction without residual deficits; G31.09 Other frontotemporal neurocognitive disorder; G47.33 Obstructive sleep apnea (adult) (pediatric); Z79.02 Long term (current) use of antithrombotics/antiplatelets; Z79.84 Long term (current) use of oral hypoglycemic drugs
CPT/HCPCS: 70450; 70544; 70548; 70551; 80048; 80053; 80061; 81003; 81015; 82607; 82728; 82746; 82962; 83036; 84443; 84484; 85025; 85027; 85610; 85652; 85730; 86038; 86140; 86430; 86850; 86900; 86901; 92610; 93005; 97112; 97163; 97167; 97530; 99285; A9585

== ENCOUNTER 2024-03-12 11:58 | Emergency (ER) | payer OTHER, SELFPAY ==
[2024-03-12] VITALS (7 sets, daily range): BP systolic 106–135; BP diastolic 53–81; BMI 37.3
--- NOTE | 2024-03-12 12:04 | ED.CVA ---
History of Present Illness
General
Chief Complaint: CVA/TIA Symptoms
Source: patient and physician
Exam Limitations: none
Time Seen by Provider: 03/12/24 12:04
Nursing documentation reviewed up to this point in time: agreed with
Onset of Stroke Symptoms
Onset of symptoms known: Yes
Date of onset of symptoms: 03/12/24
Time of onset of symptoms: 11:30
Time pt last seen normal is known: Yes
Date last time pt seen normal: 03/12/24
Time last time pt seen normal: 11:30
History of Present Illness
History of Present Illness:
73 yo male presents to the emergency department due to weakness, syncope at 1140. [place] cold, called in nursing aid, then passed out. Comes from [facility] after recent hospital admission for cva and left side weakness. History of frontal dementia.
Past History
Past History
ED Past Medical History: CVA, HTN, NIDDM and Other (behavioral variant frontotemporal dementia, FEMI); Negative Renal failure (CKD2)
ED Past Surgical History: Orthopedic (left hand surgery (sutures)) and Other (achilles tendon repair)
Social History
Tobacco: Non-smoker
Alcohol: None
Personal:
Living: with family
Employment: Retired
Family History
Family History: Other (Reviewed and noncontributory)
Phy Exam
Physical Exam
Physical Exam:
Physical Exam
General: Appears uncomfortable, afebrile, vomit on gown
Neck: supple. no meningeal signs. normal posterior pharynx
Heart: s1/s2 regular rate and rhythm, no murmur. equal radial
pulses.
HEENT: Pupils equal round reactive to light, EOMI
Lungs: no acute respiratory distress. clear bilaterally
Abdomen: normal bowel sounds. not tender. no CVAT
Neuro: alert and oriented. no focal neurological deficits cranial nerves II through XII intact
Skin: no rash
Psychiatric: well kept. interactive and cooperative
Extremities: no edema. no calf tenderness. negative homans. good distal pulses
Course
Orders/Labs/Results
Orders:
Orders
03/12/24 12:01
Electrocardiogram (*1) Urgent
Reason for Study: Other
Other Reason for Exam: Possible Stroke
CT HEAD STROKE ALERT W/o Cont Stat
Comment:
Reason For Exam: stroke alert
Bedside Glucose- Treatment ONCE
Cardiac Monitoring- Treatment ONCE
EKG- Treatment ONCE
IV Insert/Care/Rem.- Treatment PRN
Vital Signs As Directed
Frequency: Other
Weight As Directed
Frequency: Once
Comment: ZERO STRETCHER SCALE FOR ACCURATE WEIGHT
O2 Therapy [RESP] Urgent
Titrate/Wean O2 to maintain O2 sat greater than (%): 93
Special Instructions: MAINTAIN CONTINUOUS O2 SATS > OR = 93%
03/12/24 12:04
Complete Blood Count/With Diff Urgent
Comprehensive Metabolic Panel Urgent
PTT Urgent
Prothrombin Time Urgent
Troponin I Urgent
03/12/24 12:11
Ondansetron Injectable [Zofran] 4 mg IV NOW STA
Abnormal Lab Results
03/12/24 03/12/24
12:00 12:04
WBC 11.3 H 10^3/uL
(4.8-10.8)
MCHC 32.4 L g/dL
(33.0-37.0)
Absolute Lymphs (auto) 3.8 H 10^3/uL
(1.2-3.4)
Absolute Monos (auto) 0.9 H 10^3/uL
(0.1-0.6)
BUN 24 H mg/dl
(9-20)
Creatinine 1.7 H mg/dL
(0.7-1.3)
Glucose 139 H mg/dl
(70-99)
POC Glucose 125 H mg/dl
(70-99)
03/12/24 12:04
03/12/24 12:04
Vital Signs
Initial and Last Documented VS:
Initial Vital Signs
Pulse Resp
89 18
03/12/24 12:11 03/12/24 12:11
Last Documented Vital Signs
Pulse Resp BP Pulse Ox
84 14 135/72 94
03/12/24 13:15 03/12/24 13:15 03/12/24 13:15 03/12/24 13:15
MDM/Problems Addressed
Differential Diagnosis Includes:
CVA, vasovagal syncope
MDM/Problems Addressed:
73-year-old male with likely vasovagal syncope. Seen and evaluated by neurology, do not suspect CVA. Patient initially seen as CVA alert.
Chronic conditions affecting care: HTN and CAD
*Radiology
Radiology exam reviewed: radiology read reviewed (CT head no acute findings)
*Pulse Oximetry
Patient hypoxic: no
*EKG
Interpreted by ED Provider?: Yes
EKG Intrepretation Date: 03/12/24
EKG Intrepretation Time: 12:34
Interpretation: normal
Comparison EKG: changes noted
Heart Rate: 83
Rate: normal
Rhythm: sinus
[place]: normal axis
Interval: normal interval
QRS Pattern: normal QRS
Ischemia: no ischemia
*Rubber Calender Helper Interpretation
Rate: normal
Interpretation: normal
Heart Rate: 80
Rhythm: sinus
*Critical Care Note
Total Time (30-74mins, 75-104mins- exclusive of procedures): 30
comment:
Critical care statement: A total of 30 minutes of critical care time was provided for this patient. This includes management of unstable vital signs, evaluation of the patient at bedside, reviewing the patient's pertinent medical records, discussion
with consultants, review of old EKGs and review of pertinent medical records. This time with separate from time utilized to perform the aforementioned documented procedures
Data Reviewed
Review of Other/Old Records Reveals: Labs (Mild creatinine elevation)
Source: records
Patient Management
Social determinants of health affecting care: Living situation
Discussion with other providers: Music Specialist (Neurology)
Escalation/DeEscalation of care consider admission/obs:
Admit not indicated
ED Attending Note
-
Portions of this chart may have been created with voice recognition software.� Occasional wrong word or��sound alike� substitutions may have occurred due to the inherent limitations of voice recognition software.
Discharge Plan
Departure
Patient Disposition: Fdc/SNF
Date of Disposition: 03/12/24
Time of Disposition: 14:06
Patient with high blood pressure during this ER visit?: Yes
Condition: Fair
Discharge Problem:
Syncope
Instructions: Syncope (fainting), BLOOD PRESSURE
Prescriptions:
No Action
furosemide 40 mg Tablet
40 mg PO DAILY
atorvastatin 80 mg Tablet
80 mg PO DAILY
donepezil 5 mg Tablet
5 mg PO HS
tamsulosin 0.4 mg Capsule
0.4 mg PO DAILY
lisinopril 40 mg Tablet
40 mg PO DAILY
cyanocobalamin (vitamin B-12) 2,500 mcg Tablet
2,500 mcg PO DAILY
Ozempic 2 mg/dose (8 mg/3 mL) Pen Injector
2 mg SC SA
metformin 500 MG tablet
1,000 mg PO BID
sennosides [senna] 8.6 mg Tablet
17.2 mg PO HS
acetaminophen [Tylenol] 325 mg Tablet
650 mg PO Q4HPRN PRN (Reason: mild pain )
trazodone 50 mg Tablet
50 mg PO HS
trazodone [Desyrel] 50 mg Tablet
25 mg PO DAILY
ondansetron HCl [Zofran] 4 mg Tablet
4 mg PO TIDPRN PRN (Reason: nausea )
bisacodyl [Dulcolax (bisacodyl)] 10 mg Suppository
10 mg ND DAILYPRN PRN (Reason: constipation )
pantoprazole [Protonix] 40 mg Tablet,Delayed Release (Dr/Ec)
40 mg PO DAILY
docusate sodium [Colace] 100 mg Capsule
100 mg PO BID
bisacodyl [Dulcolax (bisacodyl)] 5 mg Tablet,Delayed Release (Dr/Ec)
10 mg PO DAILYPRN PRN (Reason: constipation )
ergocalciferol (vitamin D2) [Drisdol] 1,250 mcg (50,000 unit) Capsule
1,250 mcg PO FR
heparin (porcine) 5,000 unit/mL (1 mL) Cartridge
5,000 unit SC TID
amlodipine [Norvasc] 2.5 mg tablet
2.5 mg PO HS
clopidogrel 75 mg tablet
75 mg PO DAILY
aspirin 81 MG tablet,chewable
81 mg PO DAILY
Referrals:
UNKNOWN - PT NOT,INTERVIEWE [Family Provider] -
Interventions
Interventions:
*Risk Screen - Suicide Last Done: 03/12/24 12:08
*General Assessment Last Done: 03/12/24 12:08
*Neglect/Abuse Screening Last Done: 03/12/24 12:08
ED- Fall Risk Assessment Last Done: 03/12/24 12:22
*ED COVID-19 Vaccine History Last Done: 03/12/24 12:08
*Nursing Disposition Last Done: 03/12/24 14:45
ED- Pulmonary Assessment Last Done: 03/12/24 12:25
ED- Neurological Assessment Last Done: 03/12/24 12:22
ED- Cardiac Assessment Last Done: 03/12/24 12:25
Discharge Date and Time
Discharge Date/Time: 03/12/24 14:55
Print Language: KOREAN
--- NOTE | 2024-03-12 12:14 | CON.NEURO4 ---
Addendum entered and electronically signed by Rustam Ca MD 03/12/24 13:38:
Studies reviewed
General: No Apparent Distress, Obese and Appears Stated Age
Eyes: Round OU, Arnold Conjunctivae and No Ptosis
HEENT: Anicteric and Moist Mucous Membranes
Neck: Full Range of Motion
Respiratory: No Dyspnea
Cardiac: No JVD
GI: Non-distended
Extremities: No Clubbing, No Cyanosis and No Edema
Psych: Intact Judgement/Insight
Extended Neurological Exam
Mood & Affect: Negative Affect Unremarkable
Attention Span & Concentration: Awake, and Interactive
Memory: Able to Recall (month and year) and Reduced (for current location, did not recall meeting this interviewer previously)
Tremor: Hand Tremor Absent and Head Tremor Absent
Involuntary Movement: None
Speech: Quality Unremarkable and Quantity Unremarkable
Cranial Nerve II: Left Eye: Pupillary Reactivity Unremarkable, Pupillary Size Unremarkable, Visual Benedict Intact and Smaller than Contralateral
Cranial Nerve II: Right Eye: Pupillary Reactivity Unremarkable, Pupillary Size Unremarkable and Visual Benedict Intact; Negative Smaller than Contralateral
Cranial Nerves III, IV, : Extraocular Movement: Extraocular Movement Full in all Directions
Cranial Nerve VII: Facial Symmetry: Normal Facial Symmetry
Cranial Nerve VIII: Hearing: Unremarkable Hearing to Normal Conversational Volume
Cranial Nerves IX, X: Palate Movement: Palate Elevation Symmetric
Cranial Nerve XI: Shoulder Shrug: Unremarkable
Cranial Nerve XII: Tongue Protusion: Midline
Muscle Bulk & Tone: Bulk Unremarkable and Tone Unremarkable
Pronator Drift: Drift in Left Upper Extremity and No Drift in Lower Extremities; Negative Drift in Right Upper Extremity
Deep Tendon Reflexes: Trace throughout
Touch Sensation: Unremarkable
Coordination: [id number] Testing Unremarkable
Babinski Sign: Absent Bilaterally
Abrupt onset change in mental status with nausea and emesis,? Headache at the same time suggesting the possibility of orthostasis and autonomic dysfunction in a patient with recent left MCA territory acute ischemic stroke
Do not this time believe that the patient is experiencing a recurrent stroke in the posterior circulation as there are no other signs suggestive of posterior circulation injury
Check CT of head and CT angiogram head and neck, both completed and do not demonstrate acute lesions
Provide medication for nausea
Continue aspirin and clopidogrel with use of aspirin alone after a total of 21 days after stroke onset
Okay to return to prior rehabilitation from neurological perspective
Will follow as needed
Original Note:
Documented by User: LOBITO Pardo 03/12/24 13:18
Consultation - Neurology 4
-
CONSULTING PHYSICIAN: Dr. Rustam Ca
REFERRING PHYSICIAN: DR. Reddy
DICTATED BY: LOBITO Pardo
DATE/TIME OF REQUEST: 03/12/2024
DATE/TIME OF CONSULTATION: 03/12/2024
Reason for Consultation: stroke Alert
History of Present Illness:
This is a known patient of our practice---Presented today as a stroke alert from [facility]
Previous evaluations
Adapted from outpatient records with last evaluation by my former esteemed colleague:
'Start Donepezil HCl Tablet, 5 MG, 1 tablet at bedtime, Orally, Once a day, 30 days, 30, Refills 5
PROCEDURE: Neuropsychology
Notes: -willing to restart Aricept 5mg qhs; reviewed potential s/e, how medication works and what the goals of taking it are
-does not want any medication for mood
-willing to get [employer] OPER[employer] testing done; reviewed process, location of testing, how to set it up
-reviewed differential for memory issues, how untreated sleep apnea can contribute; I will ask my office to see what the next step is to get him a CPAP
Evaluation from Dr. Ca:
'History from patient
Since last visit:
09/2023
Unable to walk normally since 2021
Mood decline
Didn't perform Neuropsychological testing
Prior evaluation: presentation to PCP, Neurosurgeon x 2
Previous testing: blood work
CT of head
MRI of brain October 2021, no evidence of normal pressure hydrocephalus, suggestion of subacute to chronic left parietal ischemic stroke by official report
[employer] Cognitive Testing 12/2021 demonstrated significantly below expected cognitive function compared with matched peers (81%).
There was an associated mood disorder in the form of depression by survey performed with the [employer] test.
MRA neck and head: 08/2022 no stenosis
Prior medication(s): Donepezil
Side-effects with medications: N/A
Previous treatment(s): none
Frequency: Fell once in September 2021
Intensity: N/A
Duration: chronic
Duration of symptom: intermittent
Etiology: presumed to not be due to normal pressure hydrocephalus; behavioral-variant frontotemporal dementia (bv-FTD)
Associated symptom(s): Gait dysfunction, short-term memory, intermittent mood issues
Driving status: issues out of batool at times, reduced driving since 09/2021
Financial status: no issues --> no issues
Hobbies: no issues --> none
Improving factors: unclear to patient
Worsening factors: unclear to patient
Unchanged by factors: unclear to patient
Severity: significant
~~~~
Right-Handed
Began (prior to initial evaluation in this office):
12/2021
Incontinence of urine since 2020, known untreated prostate issue
Memory loss started 07/2021, unclear if progressive, patient disagrees that same is present
Shuffling gait
Headaches lifelong, without significant change, most recent 6 months ago (06/2021)
09/2021 Fell head-first while walking then had CT of head
then met with Neurosurgery who suggested normal pressure hydrocephalus (NPH)
then MRI of brain which did show prior stroke according to Neurosurgery then met with second Neurosurgeon
at [facility] who suggested absence of NPH
08/2022
[facility] Cognitive Testing completed
10/2022
Completed sleep study
Unable to afford CPAP
>> 12/2022
Ran out of medicine Donepezil
Didn't perform Neuropsychological testing'
10/29: He is switching to my practice. He did not start Aricept or medication for mood. He did not get [employer]UCK[employer]HE OPERATOR testing done. He wanted to get a CPAP but found it expensive. He is willing to reconsider this.'
03/09/2024
Patient presented due to falling and inability to walk. Left-side is weak-03/09/2024
Acute onset of left arm and leg weakness
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
Right parietal acute ischemic stroke by MRI of brain, no findings by MRA head and neck
Today (03/12/2024)
Last night 03/11/2024 patient was transferred to [facility] after discharge from s/p acute right parietal ischemic stroke. Per Dr. Dickey he was doing very well last night and was motivated for therapy.
Today around 1130 he was sitting in the wheelchair when he reported he was feeling very cold and unwell. His aide put him back to bed. Once in bed he seemed he was not responding. He had acute on chronic left-sided weakness and was nauseous. A
rapid response was called ER staff came arrived at [facility] and brought him down to the ER.
When he first presented to the ER he still was not responding properly. He was not following directions. He had multiple episodes of vomiting. After about 5 to 10 minutes he started to respond he was communicating, answering questions
appropriately and following commands.
Repeat CT of the head showed no acute intracranial abnormality. Moderate diffuse cortical atrophy with extensive nonspecific white matter changes. CTA preliminary report with no evidence of LVO
Past medical History
ED Past Medical History: CVA, HTN, NIDDM and Other (behavioral variant frontotemporal dementia, FEMI); Negative Renal failure (CKD2)
ED Past Surgical History: Orthopedic (left hand surgery (sutures)) and Other (Achilles tendon repair)
Social History
Tobacco: Non-smoker
Alcohol: None
Personal:
Living: with family
Employment: Retired
Family History: Reviewed and noncontributory
Allergies: NKDA
Home Medications: see below
Review of Symptoms:
Patient denies any fever, headache, chest pain, shortness of breath, GI or symptoms.
�
Vital Signs: see below
Physical Exam:
The patient is afebrile, heart sounds regular no dyspnea or SOB
NIH Stroke Scale see below
Neurologic Examination:
The patient is awake, alert and oriented x 3. He is now able to follow most commands and answer most questions appropriately. There is no aphasia bu mild dysarthria is noted. On cranial nerve assessment, pupils are 3 mm bilateral, round and
reactive to light and accommodation. Left hemianopsia noted. Extraocular movements are intact. Facial sensations are intact and bilaterally symmetrical, there is left facial droop. Hearing is intact bilaterally to normal conversation volume. Tongue
palate and uvula are midline. Sternocleidomastoid strengths are full bilaterally. Motor strengths are 5/5 RU and RLE. $?% ERIN and 4_/5 LLE on medical research [place] scale. There is no drift or involuntary movement noted. Deep tendon reflexes are
trace bilateral upper and lower extremities and Babinski is absent bilaterally. Sensations of light touch and temperature reduced PHILLY/LL extremity. Inconsistent on double simultaneous. Coordination reduced left upper extremity [id number], intact
right upper extremity.
Lab Results: see below
Neuro Imaging-
CT head (03/12/2024)
There are no acute intracranial abnormalities.
There is moderate diffuse cortical atrophy with extensive nonspecific white matter changes as described above.
CTA head and neck (03/12/2024)-pending
MRI Michael, MRA head, MRA neck 03/09/2024
Small to moderate-sized nonhemorrhagic acute/subacute infarct in the right parietal lobe/centrum semiovale region.
Additional questionable small nonhemorrhagic subacute on chronic infarct in the left parieto-occipital periventricular region.
No focal hemodynamically significant stenosis, aneurysm or occlusion.
Impression:
SUGAR CONTI is a 73 year old M with a recent acute stroke 03/08/2024 who has presented to the hospital with episode of decreased LOC increased left sided weakness noted while at [facility] likely secondary to labile blood pressure vs vasovagal
syncope.
Pt is not a candidate for TNK as pt with recent stroke, not a candidate for IAT as no LVO seen on CTA
Recommendations:
CTH, CTA head and neck completed in the ER, no need for additional neurologic imaging
Basic labs as ordered by ER DR. Reddy
Continue ASA and Plavix as planned for a total of 21 days, then discontinue ASA and continue Plavix 75 mg daily
Continue Atorvastatin 80 mg daily
continued with secondary stroke prevention
From neurologic perspective patient can return back to [facility], any additional work up deferred to Dr. Reddy
Discussed patient care with patient, daughter at bedside, Dr. Reddy, nursing and neurologist, Dr. Ca
Medication and Allergies
Home Medications
Home Medications
�Medication �Instructions �Recorded
atorvastatin 80 mg tablet 80 mg PO DAILY 03/08/24
cyanocobalamin (vitamin B-12) 2,500 mcg PO DAILY 03/08/24
2,500 mcg tablet
donepezil 5 mg tablet 5 mg PO HS 03/08/24
furosemide 40 mg tablet 40 mg PO DAILY 03/08/24
lisinopril 40 mg tablet 40 mg PO DAILY 03/08/24
metformin 500 mg tablet 1,000 mg PO BID 03/08/24
semaglutide 2 mg/dose (8 mg/3 mL) 2 mg SC SA 03/08/24
subcutaneous pen injector (Ozempic)
tamsulosin 0.4 mg capsule 0.4 mg PO DAILY 03/08/24
amlodipine 2.5 mg tablet (Norvasc) 2.5 mg PO HS #30 tabs 03/11/24
aspirin 81 mg chewable tablet 81 mg PO DAILY 18 days #18 tabs 03/11/24
clopidogrel 75 mg tablet 75 mg PO DAILY #30 tabs 03/11/24
acetaminophen 325 mg tablet 650 mg PO Q4HPRN PRN MILD PAIN 03/12/24
(Tylenol)
bisacodyl 10 mg rectal suppository 10 mg MS DAILYPRN PRN CONSTIPATION 03/12/24
(Dulcolax (bisacodyl))
bisacodyl 5 mg tablet,delayed 10 mg PO DAILYPRN PRN CONSTIPATION 03/12/24
release (Dulcolax (bisacodyl))
docusate sodium 100 mg capsule 100 mg PO BID 03/12/24
(Colace)
ergocalciferol (vitamin D2) 1,250 1,250 mcg PO FR 03/12/24
mcg (50,000 unit) capsule
heparin (porcine) 5,000 unit/mL (1 5,000 unit SC TID 03/12/24
mL) injection cartridge
ondansetron HCl 4 mg tablet 4 mg PO TIDPRN PRN NAUSEA 03/12/24
pantoprazole 40 mg tablet,delayed 40 mg PO DAILY 03/12/24
release (Protonix)
sennosides 8.6 mg tablet (senna) 17.2 mg PO HS 03/12/24
trazodone 50 mg tablet 25 mg PO DAILY 03/12/24
trazodone 50 mg tablet 50 mg PO HS 03/12/24
Allergies
Allergies
Allergy/AdvReac Type Severity Reaction Status Date / Time
No Known Allergies Allergy Verified 03/08/24 13:44
Vital Signs / Labs
-
Vital Signs and Labs:
Pulse Resp BP Pulse Ox
85 19 134/53 95
03/12/24 12:23 03/12/24 12:23 03/12/24 12:23 03/12/24 12:25
03/12/24 12:04
03/12/24
12:04
WBC 11.3 H
MCHC 32.4 L
Absolute Lymphs (auto) 3.8 H
Absolute Monos (auto) 0.9 H
-
-
Date of Service: March 12, 2024
NIH Stroke Score
Subsequent NIH Scale
Date of Subsequent NIH Scale: 03/12/24
Time of Subsequent NIH Scale: 12:15
NIH Stroke Score
Level of Consciousness: 0 - Alert
LOC Questions: 0-Answers both correctly
LOC Commands: 0-Performs both correctly
Best Horizontal Gaze: 0-Normal
Visual Benedict: 1=Partial hemianopia
Facial Palsy: 1=Minor paralysis
Motor - Right Arm: 0=No drift 10 seconds
Motor - Left Arm: 1=Drift < 10 seconds
Motor - Right Le-No drift 5 seconds
Motor - Left Le-No drift 5 seconds
Limb Ataxia: 1-Present in one limb
Sensation: 1-Mild loss
Best Language: 0-No aphasia
Dysarthria: 1-Mild slurring
Extinction and Inattention: 1-Sensory inattention
Total Score:: 7

Documented by User: Rustam Ca MD 03/12/24 13:30
NIH Stroke Score
NIH Stroke Score
Total Score:: 7
[2024-03-12] MEDS: ZOFRAN 4 MG IV (12:19)
[2024-03-12 12:26] LABS: % Basophils 0.4 % (0-2); % Eosinophils 1.6 % (0-6); % Immature Granulocytes 0.3 % (0-0.5); % Lymphocytes 33.7 % (20.5-51.1); % Monocytes 7.7 % (1.7-9.3); % Neutrophils 56.3 % (42.2-75.2); Absolute Basophils 0.1 10^3/uL (0-0.2); Absolute Eosinophils 0.2 10^3/uL (0-0.7); Absolute Lymphocytes 3.8 10^3/uL (1.2-3.4); Absolute Monocytes 0.9 10^3/uL (0.1-0.6); Absolute Neutrophils 6.4 10^3/uL (1.4-6.5); Hematocrit 44.8 % (39.0-52.0); Hemoglobin 14.5 g/dL (13.0-18.0); Mean Corp Hgb Conc. 32.4 g/dL (33.0-37.0); Mean Corpuscular Hgb 27.9 pg (27.0-31.0); Mean Corpuscular Volume 86.3 fL (80.0-94.0); Mean Platelet Volume 9.5 fL (7.4-10.4); Nucleated Red Blood Cells % 0 % (-); Platelet Count 351 10^3/uL (130-400); Red Blood Cell Count 5.19 10^6/uL (4.70-6.10); Red Cell Dist. Width 13.5 % (11.5-14.5); White Blood Cell Count 11.3 10^3/uL (4.8-10.8)
[2024-03-12 12:45] LABS: ALT (SGPT) 24 U/L (0-50); AST (SGOT) 34 U/L (17-59); Alkaline Phosphatase 99 U/L (38-126); Blood Urea Nitrogen 24 mg/dl (9-20); Calcium 9.9 mg/dl (8.4-10.2); Carbon Dioxide 26 mmol/L (22-30); Chloride 100 mmol/L (98-107); Estimated Creatinine Clearance 46 ml/min; Glucose 139 mg/dl (70-99); Potassium 4.2 mmol/L (3.5-5.1); Sodium 141 mmol/L (135-145); Total Bilirubin 0.8 mg/dl (0.2-1.3); Total Protein 7.4 g/dl (6.3-8.2)
[2024-03-12 12:47] LABS: INR 0.91; PT 12.8 Sec (11.4-14.6)
[2024-03-12 12:48] LABS: APTT 27.4 Sec (23.4-35.0)
[2024-03-12 12:56] LABS: Troponin I < 0.012 ng/ml
[2024-03-12 14:59] LABS: Glucose - Point of Care 125 mg/dl (70-99)
[2024-03-12 16:39] LABS: Glucose - Point of Care 149 mg/dl (70-99)
[2024-03-13 11:55] LABS: Glucose - Point of Care 143 mg/dl (70-99)
[2024-03-13 17:04] LABS: Glucose - Point of Care 134 mg/dl (70-99)
== END 2024-03-12 14:55 ==
LOC: EMR 11:58
PROVIDERS: EMERGENCY PHYSICIAN Emergency Medicine
DX: R53.1 Weakness (principal); R55 Syncope and collapse; F02.83 Dementia in other diseases classified elsewhere, unspecified severity, with mood disturbance; F32.A Depression, unspecified; I10 Essential (primary) hypertension; E11.9 Type 2 diabetes mellitus without complications; G47.33 Obstructive sleep apnea (adult) (pediatric); I25.10 Atherosclerotic heart disease of native coronary artery without angina pectoris; Z79.02 Long term (current) use of antithrombotics/antiplatelets; Z79.899 Other long term (current) drug therapy; Z86.73 Personal history of transient ischemic attack (TIA), and cerebral infarction without residual deficits
CPT/HCPCS: 99284; 96374; 70450; 80053; 82962; 84484; 85025; 85610; 85730; 93005

== ENCOUNTER 2024-03-25 05:21 | Inpatient (IN) | payer OTHER, SELFPAY ==
[2024-03-24] VITALS (8 sets, daily range): BP systolic 131–149; BP diastolic 66–87
[2024-03-24 20:03] LABS: Glucose - Point of Care 122 mg/dl (70-99)
[2024-03-25] VITALS (10 sets, daily range): BP systolic 122–174; BP diastolic 67–98
--- NOTE | 2024-03-25 00:47 | ED.GENMED ---
History of Present Illness
General
Chief Complaint: Change in Mental Status
Source: patient and records
Exam Limitations: dementia (able to answer questions)
Time Seen by Provider: 03/25/24 00:09
History of Present Illness
History of Present Illness:
This is a 73 year old male that [facility] with change in mental status. Patient states that he is sick. States that his abd hurts. Patient has a fever here of 101.5. Patient Denies any chest pain, SOB, nausea, vomiting,
headache or dizziness. Patient is wearing a [place] cath.
Past History
Past History
ED Past Medical History: CAD, CVA (with left sided weakness), HTN, NIDDM and Other (behavioral variant frontotemporal dementia, FEMI); Negative Renal failure (CKD2)
ED Past Surgical History: Orthopedic (left hand surgery (sutures), Left Achilles tendon repair) and Other (achilles tendon repair)
Social History
Tobacco: Non-smoker
Alcohol: None
Personal:
Living: with family
Employment: Retired
Family History
Family History: Other (Reviewed and noncontributory)
Review of Systems
Review of Systems
All Other Systems: ROS reviewed and negative except as documented in HPI and ROS
Constitutional: Reports fever; Denies chills
EENT: Reports no symptoms
Respiratory: Reports no symptoms; Denies cough or trouble breathing
Cardiac: Denies chest pain
ABD/GI: Reports abdominal pain and diarrhea; Denies nausea or vomiting
: Reports no symptoms
Musculoskeletal: Reports no symptoms
Skin: Reports no symptoms
Neurological: Reports no symptoms; Denies dizzy or headache
Psychiatric: Reports no symptoms
Phy Exam
General Physical Exam
General Presentation: no apparent distress
General age: appears stated age
General Skin: warm and dry
General Habitus: elderly
General Mental: usual mental status
General Hydration: appears well hydrated
ENT Exam
ENT Exam: TM's normal, pharynx normal and neck supple
Cardiovascular Exam
Cardiovascular Exam: regular rate/rhythm, no edema and normal peripheral pulses
Pulmonary Exam
Pulmonary Exam: lungs clear, no respiratory distress, no rales, chest non tender, no crackles, no rhonchi, no wheezing and no cough
Gastrointestinal Exam
Gastrointestinal Exam: normal bowel sounds, soft, no organomegaly, no pulsatile mass, non distended and tender (Generalized abd tenderness with palpation)
Musculoskeletal Exam
Musculoskeletal Exam: full ROM and no edema
Skin Exam
Skin Exam: normal color, warm/dry, no rash and no petechia
Psychiatric Exam
Psychiatric Exam: normal mood/affect
Course
Orders/Labs/Results
Orders:
Orders
03/25/24 00:46
CT Abd/pelvis W Iv Cont Urgent
Comment:
Reason For Exam: abd pain
0.9% Sodium Chloride 1000 ml [Nss] 1,000 ml IV BOLUS
Acetaminophen 1000MG/100Ml [Ofirmev] 1,000 mg in 100 ml IV ONCE
Acetaminophen IV Indication:: ED Narcotic Naive Pt-ONCE
03/25/24 00:47
CR Chest - 2 Views Urgent
Comment:
Reason For Exam: Fever
03/25/24 01:34
Complete Blood Count/With Diff Urgent
Comprehensive Metabolic Panel Urgent
Lactic Acid Urgent
Urinalysis Reflex To Culture Urgent
Date Specimen was Collected: 03/25/24
Time Specimen was Collected: 00:51
Urine Microscopic Reflex Cult Urgent
Blood Culture Urgent
HAI Source: Blood/Venous
Specimen Description:
Blood Culture Urgent
HAI Source: Blood/Venous
Specimen Description:
Urine Culture Urgent
HAI Source: U
Specimen Description:
Date Specimen was Collected: 03/25/24
Time Specimen was Collected: 00:51
03/25/24 02:21
STOOL [C difficile Antigen & Toxins] Urgent
HAI Source: Feces/Stool
Specimen Description:
Date Specimen was Collected: 03/25/24
Time Specimen was Collected: 02:19
Stool Culture Urgent
HAI Source: Feces/Stool
Specimen Description:
Date Specimen was Collected: 03/25/24
Time Specimen was Collected: 02:20
Stool For WBC Urgent
HAI Source: Feces/Stool
Specimen Description:
Date Specimen was Collected: 03/25/24
Time Specimen was Collected: 02:20
03/25/24 03:11
Piperacillin/Tazo 3.375 Gram [Zosyn] 3.375 gram in 50 ml IV NOW
03/25/24 03:12
Vancomycin [Vancocin] 2,000 mg 0.9% Sodium Chloride 500 ml [Nss] 500 ml IV NOW
Abnormal Lab Results
03/24/24 03/25/24
20:00 01:34
RBC 4.52 L 10^6/uL
(4.70-6.10)
Hgb 12.7 L g/dL
(13.0-18.0)
Hct 38.0 L %
(39.0-52.0)
Absolute Lymphs (auto) 0.6 L 10^3/uL
(1.2-3.4)
Absolute Monos (auto) 0.7 H 10^3/uL
(0.1-0.6)
Neutrophils % 79.9 H %
(42.2-75.2)
Lymphocytes % 8.5 L %
(20.5-51.1)
Monocytes % 9.9 H %
(1.7-9.3)
Creatinine 1.5 H mg/dL
(0.7-1.3)
Glucose 131 H mg/dl
(70-99)
Lactic Acid 0.6 L mmol/L
(0.7-2.0)
Ur Occult Blood Reflex Trace A
(Negative)
Urine RBC 3-6 A /HPF
(0-2)
Urine Bacteria (Reflex) Moderate A
(Negative)
Urine Glucose Trace A
(Negative)
Urine Albumin (Reflex) 3+ A
(Neg - Trace)
POC Glucose 122 H mg/dl
(70-99)
03/25/24 01:34
03/25/24 01:34
H/H slighty low. Cr Slighly elevated. Lactic acid normal at 0.6, Urine negative for infection.
Vital Signs
Initial and Last Documented VS:
Initial Vital Signs
Temp Pulse Resp BP Pulse Ox
101.5 F H 106 18 138/66 95
03/24/24 20:10 03/24/24 20:10 03/24/24 20:10 03/24/24 20:10 03/24/24 20:10
Last Documented Vital Signs
Temp Pulse Resp BP Pulse Ox
101.5 F H 94 20 134/79 97
03/24/24 20:10 03/25/24 00:00 03/25/24 00:00 03/25/24 00:00 03/24/24 21:30
MDM/Problems Addressed
Differential Diagnosis Includes:
Enteritis, Viral GI Syndrome.
MDM/Problems Addressed:
This is a 73 year old male [facility]. Told that patient has a change in mental status. Patient states that he has abd pain. Patient is having diarrhea.
Will check labs. Give IV fluids and Tylenol for his fever and get stool . Will CT the abd/pelvis.
Chronic conditions affecting care:
Dementia
Chronic conditions affecting care: DM
Acute Exacerbation and/or Progression of Chronic Illness:
NA
*Radiology
Radiology exam reviewed: preliminary read by ED provider (Chest- Left lower Pneumonia and right), radiology read reviewed (CT- night hawk- No acute abnormality within the abdomen or pelvis. No bowel obstruction. Cholelithiasis. Normal appendix.
Incidentals: No obstructive uropathy. No hepatic or pancreatic mass. No abdominal aortic aneurysm. No acute osseous abnormality. No acute abnormality within the visualized lungs.) and all reviewed NAD by ED Provider (CT cont- No acute abnormality
within the visualized soft tissues. )
*Pulse Oximetry
Patient hypoxic: no
*EKG
Interpreted by ED Provider?: NA
Rate: EKG- N/A
*Back Strip Machine Operator Interpretation
Rate: normal
Heart Rate: 94
Rhythm: sinus
*Critical Care Note
Total Time (30-74mins, 75-104mins- exclusive of procedures): Not Applicable
ED Attending Note
-
Portions of this chart may have been created with voice recognition software.� Occasional wrong word or��sound alike� substitutions may have occurred due to the inherent limitations of voice recognition software.
Discharge Plan
Departure
Patient Disposition: Admit
Date of Disposition: 03/25/24
Time of Disposition: 03:37
Admit to: Med/Surg
Presentation/result/management discussed w/ accepting MD/DO: Hospitalist
Patient with high blood pressure during this ER visit?: Yes
Condition: Good
Covid-19: Not Applicable
Discharge Problem:
Pneumonia of both lower lobes, Diarrhea
Prescriptions:
No Action
furosemide 40 mg Tablet
40 mg PO DAILY
atorvastatin 80 mg Tablet
80 mg PO DAILY
donepezil 5 mg Tablet
5 mg PO HS
tamsulosin 0.4 mg Capsule
0.4 mg PO DAILY
lisinopril 40 mg Tablet
40 mg PO DAILY
cyanocobalamin (vitamin B-12) 2,500 mcg Tablet
2,500 mcg PO DAILY
Ozempic 2 mg/dose (8 mg/3 mL) Pen Injector
2 mg SC SA
metformin 500 MG tablet
1,000 mg PO BID
sennosides [senna] 8.6 mg Tablet
17.2 mg PO HS
acetaminophen [Tylenol] 325 mg Tablet
650 mg PO Q4HPRN PRN (Reason: mild pain )
trazodone 50 mg Tablet
50 mg PO HS
trazodone [Desyrel] 50 mg Tablet
25 mg PO DAILY
ondansetron HCl [Zofran] 4 mg Tablet
4 mg PO TIDPRN PRN (Reason: nausea )
bisacodyl [Dulcolax (bisacodyl)] 10 mg Suppository
10 mg [place] DAILYPRN PRN (Reason: constipation )
pantoprazole [Protonix] 40 mg Tablet,Delayed Release (Dr/Ec)
40 mg PO DAILY
docusate sodium [Colace] 100 mg Capsule
100 mg PO BID
bisacodyl [Dulcolax (bisacodyl)] 5 mg Tablet,Delayed Release (Dr/Ec)
10 mg PO DAILYPRN PRN (Reason: constipation )
ergocalciferol (vitamin D2) [Drisdol] 1,250 mcg (50,000 unit) Capsule
1,250 mcg PO FR
heparin (porcine) 5,000 unit/mL (1 mL) Cartridge
5,000 unit SC TID
amlodipine [Norvasc] 2.5 mg tablet
2.5 mg PO HS
clopidogrel 75 mg tablet
75 mg PO DAILY
aspirin 81 MG tablet,chewable
81 mg PO DAILY
Referrals:
Chava Cm CRNP [Family Provider] -
Interventions
Interventions:
*Risk Screen - Suicide Last Done: 03/24/24 20:10
*General Assessment Last Done: 03/24/24 20:10
*Neglect/Abuse Screening Last Done: 03/24/24 20:10
ED- Fall Risk Assessment Last Done: 03/24/24 20:21
*ED COVID-19 Vaccine History Last Done: 03/24/24 20:21
ED- Pulmonary Assessment Last Done: 03/24/24 20:21
ED- Neurological Assessment Last Done: 03/24/24 20:21
ED- Cardiac Assessment Last Done: 03/24/24 20:21
ED Swallowing Screen Last Done: 03/24/24 20:21
Discharge Date and Time
Print Language: KOREAN
[2024-03-25] MEDS: NSS 1000 IV (01:43)
[2024-03-25] MEDS: OFIRMEV 100 IV (01:46)
[2024-03-25 01:48] LABS: Urine Albumin 3+ (Neg - Trace); Urine Bilirubin Negative (Negative); Urine Character Clear (Clear); Urine Color Yellow; Urine Glucose Trace (Negative); Urine Ketone Negative (Negative); Urine Leukocyte Negative (Negative); Urine Nitrite Negative (Negative); Urine Occult Blood Trace (Negative); Urine Specific Gravity 1.015 (<1.030); Urine Urobilinogen Negative (Neg - 1+)
[2024-03-25 01:50] LABS: % Basophils 0.6 % (0-2); % Eosinophils 0.7 % (0-6); % Immature Granulocytes 0.4 % (0-0.5); % Lymphocytes 8.5 % (20.5-51.1); % Monocytes 9.9 % (1.7-9.3); % Neutrophils 79.9 % (42.2-75.2); Absolute Eosinophils 0.1 10^3/uL (0-0.7); Absolute Lymphocytes 0.6 10^3/uL (1.2-3.4); Absolute Monocytes 0.7 10^3/uL (0.1-0.6); Absolute Neutrophils 5.5 10^3/uL (1.4-6.5); Hemoglobin 12.7 g/dL (13.0-18.0); Mean Corp Hgb Conc. 33.4 g/dL (33.0-37.0); Mean Corpuscular Hgb 28.1 pg (27.0-31.0); Mean Corpuscular Volume 84.1 fL (80.0-94.0); Mean Platelet Volume 9.4 fL (7.4-10.4); Nucleated Red Blood Cells % 0 % (-); Platelet Count 285 10^3/uL (130-400); Red Blood Cell Count 4.52 10^6/uL (4.70-6.10); Red Cell Dist. Width 13.3 % (11.5-14.5); White Blood Cell Count 6.8 10^3/uL (4.8-10.8)
[2024-03-25 02:02] LABS: Urine Amorphous Seen; Urine Urothelial Cell 0-2 /LPF (FEW)
[2024-03-25 02:03] LABS: Urine Bacteria Moderate (Negative)
[2024-03-25 02:05] LABS: ALT (SGPT) 41 U/L (0-50); AST (SGOT) 41 U/L (17-59); Albumin 3.8 g/dl (3.5-5.0); Alkaline Phosphatase 107 U/L (38-126); Blood Urea Nitrogen 20 mg/dl (9-20); Calcium 9.8 mg/dl (8.4-10.2); Carbon Dioxide 26 mmol/L (22-30); Chloride 103 mmol/L (98-107); Glucose 131 mg/dl (70-99); Potassium 4.1 mmol/L (3.5-5.1); Sodium 137 mmol/L (135-145); Total Bilirubin 0.7 mg/dl (0.2-1.3); Total Protein 7.1 g/dl (6.3-8.2); eGFR 49.16
[2024-03-25 02:06] LABS: Lactic Acid 0.6 mmol/L (0.7-2.0)
[2024-03-25] MEDS: ZOSYN 50 IV ×2 (04:57→14:52)
--- NOTE | 2024-03-25 05:00 | HPS.HSE ---
Family Physician
-
Family Physician: LOBITO Dickens
Chief Complaint
-
Cough / Fever
History of Present Illness
Patient is a 73y M with PMH significant for HTN, DM-II and recent CVA who presents to ED from [facility] for evaluation of fever and cough. Patient developed cough and fever at [facility] within the past 24 hours. COVID testing was done which was negative.
His symptoms persisted and his fever increased to Tmax of 102.8 and patient was sent to the ED for further evaluation and treatment.
Patient was recently admitted to for acute R parietal CVA with L sided weakness (03/08 - 03/11). He has been a patient at [facility] since 03/11.
Patient began to experience chills in the evening 03/23 - 03/24. He then developed cough and was noted to have fever.
In the ED, patient is sleeping. He will awaken to vocal / tactile stimuli. He answers questions briefly and follows commands, but falls quickly back to sleep.
He denies any pain. He had loose stools here in the ED.
Medical History
Past Medical History
Past Medical History: Reports Other
Additional Past Medical History:
hypertension
hyperlipidemia
PAD
type 2 diabetes
HFpEF
chronic kidney disease
Acute CVA (03/2024)
Past Surgical History: Reports Other
Additional Past Surgical History:
left Achilles tendon
left hand surgery
Social History
Tobacco: Former Smoker
Alcohol: Former
Drug: None
Personal:
Living: With Family
Employment: Retired
Family History
Family History: Other (Father: CVA, Larynx cancer; Mother: Lung cancer; Sister; CVA, lung cancer; Brother: Brain cancer)
Allergies / Home Medications
Allergies reflects when Allergies were last updated in [employer].
Home Medications with original date entered in [employer]
Allergy/Medication List:
Allergies
Allergy/AdvReac Type Severity Reaction Status Date / Time
No Known Allergies Allergy Verified 03/08/24 13:44
Home Medications
atorvastatin 80 mg tablet 80 mg PO DAILY High Cholesterol 03/08/24
cyanocobalamin (vitamin B-12) 2,500 mcg tablet 2,500 mcg PO DAILY Supplement 03/08/24
donepezil 5 mg tablet 5 mg PO HS memory/cognition 03/08/24
furosemide 40 mg tablet 40 mg PO DAILY Fluid Retention/Swelling 03/08/24
lisinopril 40 mg tablet 40 mg PO DAILY Blood Pressure 03/08/24
metformin 500 mg tablet 1,000 mg PO BID Diabetes 03/08/24
semaglutide 2 mg/dose (8 mg/3 mL) subcutaneous pen injector (Ozempic) 2 mg SC SA Diabetes 03/08/24
tamsulosin 0.4 mg capsule 0.4 mg PO DAILY Urinary Issue 03/08/24
acetaminophen 325 mg tablet (Tylenol) 650 mg PO Q4HPRN PRN mild pain 03/12/24
amlodipine 2.5 mg tablet (Norvasc) 2.5 mg PO HS Blood Pressure 03/12/24
aspirin 81 mg chewable tablet 81 mg PO DAILY Blood Clot Prevention/Tx 03/12/24
bisacodyl 10 mg rectal suppository (Dulcolax (bisacodyl)) 10 mg [place] DAILYPRN PRN constipation 03/12/24
bisacodyl 5 mg tablet,delayed release (Dulcolax (bisacodyl)) 10 mg PO DAILYPRN PRN constipation 03/12/24
clopidogrel 75 mg tablet 75 mg PO DAILY Blood Clot Prevention/Tx 03/12/24
docusate sodium 100 mg capsule (Colace) 100 mg PO BID Constipation 03/12/24
ergocalciferol (vitamin D2) 1,250 mcg (50,000 unit) capsule 1,250 mcg PO FR Supplement 03/12/24
heparin (porcine) 5,000 unit/mL (1 mL) injection cartridge 5,000 unit SC TID Blood Clot Prevention/Tx 03/12/24
ondansetron HCl 4 mg tablet 4 mg PO TIDPRN PRN nausea 03/12/24
pantoprazole 40 mg tablet,delayed release (Protonix) 40 mg PO DAILY Gastrointestinal Issue 03/12/24
sennosides 8.6 mg tablet (senna) 17.2 mg PO HS Constipation 03/12/24
trazodone 50 mg tablet 25 mg PO DAILY depression 03/12/24
trazodone 50 mg tablet 50 mg PO HS depression/sleep 03/12/24
Review of Systems
-
History Source: Patient
A 12 point ROS was completed and negative except as noted: Yes
Constitutional: Reports Fever and Fatigue
Respiratory: Reports Cough; Denies Trouble Breathing
Cardiac: Denies Chest Pain
Abdomen/GI: Reports Diarrhea; Denies Nausea or Vomiting
Musculoskeletal: Denies Joint Pain or Edema
Neurological: Reports Weakness; Denies Dizzy or Headache
Physical Exam
Vital Signs
Vital Signs
Temp Pulse Resp BP Pulse Ox
101.5 F H 94 20 134/79 97
03/24/24 20:10 03/25/24 00:00 03/25/24 00:00 03/25/24 00:00 03/24/24 21:30
Physical Exam
General: Other (73y M sleeping comfortably. No acute distress.)
HEENT: Moist mucous membranes and PERRLA
Respiratory: Other (Few coarse breath sounds at the bases - L > R. No wheezing or rales.)
Cardiac: S1/S2 and Tachycardia; No Murmur
GI: Soft, Non Tender, Non Distended and Normal Bowel Sounds
Musculoskeletal: No Clubbing, No Cyanosis and No Edema
Neuro: Awake, Alert and Other (LUE weakness appreciated.)
Laboratory Results
-
03/25/24 01:34
03/25/24 01:34
Laboratory Results
Lactic Acid 0.6 mmol/L (0.7-2.0) L 03/25/24 01:34
Total Bilirubin 0.7 mg/dl (0.2-1.3) 03/25/24 01:34
AST 41 U/L (17-59) 03/25/24 01:34
ALT 41 U/L (0-50) 03/25/24 01:34
Alkaline Phosphatase 107 U/L (38-126) 03/25/24 01:34
Impression/Plan
-
A/P: Patient is a 73y M with PMH significant for HTN, DM-II and recent acute CVA who [facility] and fever.
Pneumonia
Sepsis secondary to the above
Acute TME secondary to the above
- Admit for further evaluation and treatment.
- Patient presents with fever, tachycardia, tachypnea and cough / abnormal CXR.
- CXR done at [facility] and again today with more generalized / mild interstitial markings - ? atypical or viral pneumonia.
- COVID was negative. Will add influenza.
- Abx for now including doxycycline.
- Supportive care.
- Follow fever curve. Follow-up micro results.
- Follow for clinical improvement.
Diarrhea
- ? infectious v med related.
- Stool studies are pending. Check Norovirus.
- Hold diuretics.
- Hold metformin / semaglutide / etc.
- Follow frequency of stools.
ASCVD
Recent CVA with L Sided Weakness
- Stable. Continue current med regimen including DAPT, etc.
- PT / OT / Speech evaluations.
- Follow for continued improvement.
- Monitor for any new / worsening deficits.
Benign Hypertension
- Stable. No evidence of hypotension. Normal Lactate.
- Hold amlodipine acutely.
- Resume BP meds if patient remains clinically stable.
CKD III
- Stable. Renal function remains at recent baseline.
- Follow for changes.
DM-II
- Stable. Hold PO medications acutely.
- Note recent diarrhea - ? secondary to metformin / semaglutide / etc.
- Follow glucose and cover with SSI as needed.
Chronic HFpEF
- Stable. No current evidence of volume overload.
- Hold Lasix given sepsis and volume losses / diarrhea.
- Follow I/Os, daily weights, etc.
Frontotemporal Dementia with Behavioral Disturbance
- Stable. Continue current med regimen for now.
- Follow for any acute changes.
DVT Prophylaxis: Subcut Heparin
Code Status: Full
[2024-03-25] MEDS: VANCOCIN 540 MG IV (06:07)
[2024-03-25] MEDS: HEPARIN 5000 UNITS SC (09:16)
[2024-03-25] MEDS: LIPITOR 80 MG PO (09:17)
[2024-03-25] MEDS: PLAVIX 75 MG PO (09:17)
[2024-03-25] MEDS: PROTONIX 40 MG PO (09:17)
[2024-03-25] MEDS: LOW STRENGTH ASPIRIN 81 MG PO (09:17)
[2024-03-25] MEDS: ROCEPHIN 1000 MG IV (09:17)
[2024-03-25] MEDS: FLOMAX 0.4 MG PO (09:18)
[2024-03-25] MEDS: VIBRAMYCIN 100 MG PO (09:18)
[2024-03-25] MEDS: STERILE WATER FOR INJECTION 10 ML IV (09:18)
--- NOTE | 2024-03-25 10:56 | CM ---
CM updated [facility] Liaison with plan for admission.
--- NOTE | 2024-03-25 13:02 | TRANSFER ---
Pt transferred from ED to [facility] at 1230. Pt pulled from stretcher to bed. Connected to monitor number 1, placed on central monitor, NSR. Pt does not complain of pain. Left sided extremity weakness r/t prior CVA. and family at bedside to
complete admission questions for patient. Oriented x2-3, unable to hold full conversation with RN. Call person within reach, bed alarm also in place. VSS, admission and assessment complete by this RN.
[2024-03-25] MEDS: TYLENOL 650 MG PO ×2 (13:11→20:28)
--- NOTE | 2024-03-25 13:30 | W.PN.HOSP.TC ---
Today's Communication/Plan
-
Monitor vital signs see plan
Follow fever curve, if continues to spike fever then will need ID evaluation
Start Zosyn
Follow cultures
Discussed with spouse at bedside
Monitor mental status closely
Speech therapy
Nonbillable note
Assessment / Plan
Assessment / Plan
General: Other (73y M sleeping comfortably. No acute distress.)
HEENT: Moist mucous membranes and PERRLA
Respiratory: Other (Few coarse breath sounds at the bases - L > R. No wheezing or rales.)
Cardiac: S1/S2 and Tachycardia; No Murmur
GI: Soft, Non Tender, Non Distended and Normal Bowel Sounds
Musculoskeletal: No Clubbing, No Cyanosis and No Edema
Neuro: Awake, Alert and Other (LUE weakness appreciated.)
Pneumonia, suspect hospital aquired
Sepsis secondary to the above
Acute TME secondary to the above
- Patient presents with fever, tachycardia, tachypnea and cough / abnormal CXR.
- CXR done at [facility] and again today with more generalized / mild interstitial markings
covid,flu neb
- Follow fever curve. Follow-up micro results.
- Follow for clinical improvement.
If fevers persist then will need ID evaluation
cw zosyn for now
Diarrhea
- ? infectious v med related.
- Stool studies are pending. Norovirus, C. difficile negative
- Hold diuretics.
- Hold metformin / semaglutide / etc.
- Follow frequency of stools.
ASCVD
Recent CVA with L Sided Weakness
- Stable. Continue current med regimen including DAPT, etc.
- PT / OT / Speech evaluations.
- Follow for continued improvement.
- Monitor for any new / worsening deficits.
Benign Hypertension
- Stable. No evidence of hypotension. Normal Lactate.
- Hold amlodipine acutely.
- Resume BP meds if patient remains clinically stable.
CKD III
- Stable. Renal function remains at recent baseline.
- Follow for changes.
DM-II
- Stable. Hold PO medications acutely.
- Note recent diarrhea - ? secondary to metformin / semaglutide / etc.
- Follow glucose and cover with SSI as needed.
Chronic HFpEF
- Stable. No current evidence of volume overload.
- Hold Lasix given sepsis and volume losses / diarrhea.
- Follow I/Os, daily weights, etc.
Frontotemporal Dementia with Behavioral Disturbance
- Stable. Continue current med regimen for now.
- Follow for any acute changes.
DVT Prophylaxis: Subcut Heparin
Code Status: Full
Anticipated Discharge: > 48 hours
Subjective/Interval History
-
Date of Service: March 25, 2024
falling sleep at times
Objective Data
-
Labs:
Laboratory Results
03/25/24
01:34
WBC 6.8
Hgb 12.7 L
Hct 38.0 L
Plt Count 285
Sodium 137
Potassium 4.1
Chloride 103
Carbon Dioxide 26
BUN 20
Creatinine 1.5 H
Glucose 131 H
Calcium 9.8
Total Bilirubin 0.7
AST 41
ALT 41
Alkaline Phosphatase 107
Vital Signs:
Vital Signs
Temp Pulse Resp BP Pulse Ox
101.0 F H 99 18 125/71 97
03/25/24 12:32 03/25/24 12:32 03/25/24 12:32 03/25/24 12:32 03/25/24 12:32
[2024-03-25] MEDS: DESYREL 25 MG PO (14:55)
--- NOTE | 2024-03-25 15:41 | PTOTSP ---
Speech Therapy Evaluation:
Pt with chronic risk factors of oropharyngeal dysphagia (Dementia and hx of CVA). Pt remains at an increased risk of aspiration and related complications given overall mentation. Pt with prolonged mastication and bolus formation, suspect related to
partially edentulous state, however he demonstrated no overt s/sx of aspiration across PO trials. Pt unable to complete 3oz swallow screen as he could not consume 3oz of water without stopping.
Recommend:
1. Initiate regular solid and thin liquid diet
2. Medications as tolerated
3. General aspiration precautions
4. FORENSIC TOXICOLOGIST to follow
[2024-03-25] MEDS: DILAUDID 0.25 MG IV (16:03)
[2024-03-25] MEDS: HEPARIN SC (20:53)
--- NOTE | 2024-03-25 23:10 | PTCARENOTE ---
when attempting to connect IV Zosyn, pt became agitated, flinching, shouting 'I told you to leave me alone, stay away from me.' this RN apologized for potential misunderstanding, provided education regarding IV antibiotics. pt not receptive, trying
to swing. this RN called for help, two more staff members present in room. pt continues to refuse IV antibiotics, telling us he's 'not taking those excuses,' and 'you guys aren't touching anything on me.' Pt only receptive to taking PO Tylenol,
refer to MAR for documentation. Bed alarm remains active. LOBITO Bryan notified, no new orders.
[2024-03-25] MEDS: ZOSYN IV (23:49)
[2024-03-26] MEDS: TYLENOL 650 MG PO (00:54)
[2024-03-26] MEDS: DESYREL PO (01:46)
[2024-03-26] MEDS: ARICEPT PO (01:46)
[2024-03-26] MEDS: ZOSYN 50 IV ×4 (01:46→20:48)
[2024-03-26] MEDS: ZOFRAN 4 MG IV (02:03)
--- NOTE | 2024-03-26 02:58 | PTCARENOTE ---
pt incontinent of bowel, passing flatus, changed with assistance of three staff members. pt wincing when palpating abdomen, significantly distended. bladder scanned for 173mL. pt stated to this RN 'if you want to help me, why don't you just do it,'
and 'stop playing games with me and just help me.' after much conversation and education with multiple staff members, pt agreeable to placement of new INT. VAT contacted and placed INT. pt c/o nausea, LOBITO Bryan notified, refer to MAR for x1 Zofran
order. Tylenol administered for 101F fever. 0200 Zosyn administered. Pt now apologetic and grateful for care, stating 'thank you for keeping your promise and making me feel better.' Call person within reach
[2024-03-26 04:00] VITALS: BP 165/93
[2024-03-26 05:14] VITALS: BMI 33.8
[2024-03-26 07:39] VITALS: BP 176/84
[2024-03-26 07:48] LABS: Glucose - Point of Care 93 mg/dl (70-99)
[2024-03-26 08:18] LABS: Blood Urea Nitrogen 20 mg/dl (9-20); Calcium 9.2 mg/dl (8.4-10.2); Carbon Dioxide 24 mmol/L (22-30); Chloride 102 mmol/L (98-107); Estimated Creatinine Clearance 43 ml/min; Glucose 102 mg/dl (70-99); Sodium 138 mmol/L (135-145)
[2024-03-26 08:30] LABS: % Basophils 0.3 % (0-2); % Immature Granulocytes 0.6 % (0-0.5); % Lymphocytes 12.9 % (20.5-51.1); % Monocytes 10.2 % (1.7-9.3); Absolute Immature Granulocytes 0.1 10^3/uL (0-0.05); Absolute Lymphocytes 1.2 10^3/uL (1.2-3.4); Absolute Monocytes 0.9 10^3/uL (0.1-0.6); Absolute Neutrophils 6.9 10^3/uL (1.4-6.5); Hemoglobin 12.4 g/dL (13.0-18.0); Mean Corp Hgb Conc. 32.6 g/dL (33.0-37.0); Mean Corpuscular Hgb 27.9 pg (27.0-31.0); Mean Corpuscular Volume 85.6 fL (80.0-94.0); Mean Platelet Volume 9.6 fL (7.4-10.4); Nucleated Red Blood Cells % 0 % (-); Platelet Count 263 10^3/uL (130-400); Red Blood Cell Count 4.44 10^6/uL (4.70-6.10); Red Cell Dist. Width 13.4 % (11.5-14.5)
[2024-03-26] MEDS: LIPITOR 80 MG PO (09:05)
[2024-03-26] MEDS: PROTONIX 40 MG PO (09:05)
[2024-03-26] MEDS: HEPARIN SC (09:05)
[2024-03-26] MEDS: PLAVIX 75 MG PO (09:05)
[2024-03-26] MEDS: FLOMAX 0.4 MG PO (09:05)
[2024-03-26] MEDS: LOW STRENGTH ASPIRIN 81 MG PO (09:05)
[2024-03-26] MEDS: NORVASC 2.5 MG PO ×2 (09:07→20:48)
[2024-03-26 09:34] LABS: ALT (SGPT) 42 U/L (0-50); AST (SGOT) 40 U/L (17-59); Albumin 3.6 g/dl (3.5-5.0); Alkaline Phosphatase 98 U/L (38-126); Direct Bilirubin 0.2 mg/dl (0.0-0.4); Total Bilirubin 0.5 mg/dl (0.2-1.3); Total Protein 6.7 g/dl (6.3-8.2)
--- NOTE | 2024-03-26 10:31 | PTOTSP ---
ST Follow-Up
Pt currently presents with clinical signs of mild oropharyngeal and esophageal dysphagia characterized by mildly prolonged mastication, coughing with ingestion of solids, and intermittent eructations following ingestion of liquids. Pt is at an
increased risk for aspiration given poor positioning (favoring L side, frequently needing repositioning), poor insight to deficits, and reduced receptiveness to cueing provided by others.
Recommendations:
- Initiate PO diet of regular solids, thin liquids, and meds as tolerated.
- Aspiration precautions: OOB or HOB fully upright for all PO intake - ensure pt's body habitus is neutralized; encourage pt to eat/drink slowly; small bites/sips; alternate solids/liquids.
- CORRECTION WORKER to f/u re: diet tolerance and to determine if pt would benefit from an instrumental swallow study.
- CORRECTION WORKER to f/u at acute rehab level of care upon d/c for cognitive linguistic deficits from recent CVA.
--- NOTE | 2024-03-26 10:40 | CM ---
Spoke w/ pt's for information. Initial assessment completed
Pt lives w/ spouse in a 2STH- steps to enter from the garage and 2 steps to enter from the garage.
Pt uses cane, no other DME identified
Per spouse, pt has no hx w/ SNF/VN/PT.
[facility] Prev admission (03/08 - 03/11)
Address, point of contacts and insurance verified.
PCP: Dr. Chava Cm
[facility]
Denies financial insecurities
Pt currently w/ fever, per chart, if fever cont to spike, ID to evaluate
PT/OT following, recommending [facility]
Report: [phone]

Plan: Return to [place] when stable
[2024-03-26 11:19] VITALS: BP 148/83
[2024-03-26 11:35] LABS: Glucose - Point of Care 102 mg/dl (70-99)
--- NOTE | 2024-03-26 11:43 | W.PN.HOSP.TC ---
Today's Communication/Plan
-
monitor vitals
see plan
cw abx
Follow cultures
PT/OT
Speech cleared for regular diet
Monitor mental status
Continue with aspirin and Plavix
If continues to spike fever then will need ID evaluation
Discussed with spouse over the phone
Assessment / Plan
Assessment / Plan
General: Other (73y M sleeping comfortably. No acute distress.)
HEENT: Moist mucous membranes and PERRLA
Respiratory: Other (Few coarse breath sounds at the bases - L > R. No wheezing or rales.)
Cardiac: S1/S2 and Tachycardia; No Murmur
GI: Soft, Non Tender, Non Distended and Normal Bowel Sounds
Musculoskeletal: No Clubbing, No Cyanosis and No Edema
Neuro: Awake, Alert and Other (LUE weakness appreciated.)
Pneumonia, suspect hospital aquired
Sepsis secondary to the above
Acute TME secondary to the above
- Patient presents with fever, tachycardia, tachypnea and cough / abnormal CXR.
- CXR done at [facility] and again today with more generalized / mild interstitial markings
covid,flu neb
- Follow fever curve. Follow-up micro results. BCX NGTD
- Follow for clinical improvement.
If fevers persist then will need ID evaluation
cw zosyn for now; MRSA swab
Seen by speech, now on regular diet
Diarrhea
- ? infectious v med related.
- Stool studies are pending. Norovirus, C. difficile negative
- Hold diuretics.
- Hold metformin / semaglutide / etc.
- Follow frequency of stools.
CT abdomen without acute abnormality
Mild biliary sludge, LFTs normal
ASCVD
Recent CVA with L Sided Weakness
- Stable. Continue current med regimen including DAPT, etc. continue with aspirin and Plavix currently. Discontinue Plavix on 03/31 and continue aspirin definitely
- PT / OT / Speech evaluations.
- Follow for continued improvement.
- Monitor for any new / worsening deficits.
Benign Hypertension
- Stable. No evidence of hypotension. Normal Lactate.
- Hold amlodipine acutely.
- Resume BP meds if patient remains clinically stable.
CKD III
- Stable. Renal function remains at recent baseline.
- Follow for changes.
DM-II
- Stable. Hold PO medications acutely.
- Note recent diarrhea - ? secondary to metformin / semaglutide / etc.
- Follow glucose and cover with SSI as needed.
Chronic HFpEF
- Stable. No current evidence of volume overload.
- Hold Lasix given sepsis and volume losses / diarrhea.
- Follow I/Os, daily weights, etc.
Frontotemporal Dementia with Behavioral Disturbance
- Stable. Continue current med regimen for now.
- Follow for any acute changes.
DVT Prophylaxis: Subcut Heparin
Code Status: Full
I spent a total of 52 minutes with the patient or on the floor. More than 50% of this time involved counseling and coordination of care.
Anticipated Discharge: 24 - 48 hours
Subjective/Interval History
-
Date of Service: March 26, 2024
Denies pain
Objective Data
-
Labs:
Laboratory Results
03/26/24 03/26/24
07:22 08:36
WBC 9.0
Hgb 12.4 L
Hct 38.0 L
Plt Count 263
Sodium 138
Potassium 4.0
Chloride 102
Carbon Dioxide 24
BUN 20
Creatinine 1.8 H
Glucose 102 H
Calcium 9.2
Total Bilirubin 0.5 Cancelled
AST 40 Cancelled
ALT 42 Cancelled
Alkaline Phosphatase 98 Cancelled
Vital Signs:
Vital Signs
Temp Pulse Resp BP Pulse Ox
98.9 F 93 17 148/83 97
12/19/24 11:19 03/26/24 11:19 03/26/24 11:19 03/26/24 11:19 03/26/24 11:19
I&O
03/25/24 03/26/24 03/27/24
06:59 06:59 06:59
Intake Total 170 / 170
Balance 170 / 170
[2024-03-26 13:31] LABS: Urine Sodium 71 mmol/L (30-90)
[2024-03-26] MEDS: DESYREL 25 MG PO (14:12)
[2024-03-26 14:40] VITALS: BP 142/75
[2024-03-26 16:47] LABS: Glucose - Point of Care 108 mg/dl (70-99)
[2024-03-26 19:47] VITALS: BP 152/70
[2024-03-26] MEDS: HEPARIN 5000 UNITS SC (20:48)
[2024-03-26] MEDS: DESYREL 50 MG PO (20:49)
[2024-03-26] MEDS: ARICEPT 5 MG PO (20:49)
[2024-03-26 21:11] LABS: Glucose - Point of Care 108 mg/dl (70-99)
[2024-03-26 23:43] VITALS: BP 180/88
[2024-03-27] VITALS (7 sets, daily range): BP systolic 130–164; BP diastolic 59–88; PULSE 81; O2SAT 98; BMI 33.9
[2024-03-27] MEDS: ZOSYN 50 IV ×4 (01:42→20:23)
[2024-03-27 07:22] LABS: % Basophils 0.2 % (0-2); % Eosinophils 0.1 % (0-6); % Immature Granulocytes 0.5 % (0-0.5); % Lymphocytes 18.8 % (20.5-51.1); % Monocytes 9.4 % (1.7-9.3); Absolute Lymphocytes 1.5 10^3/uL (1.2-3.4); Absolute Monocytes 0.8 10^3/uL (0.1-0.6); Absolute Neutrophils 5.8 10^3/uL (1.4-6.5); Hematocrit 37.6 % (39.0-52.0); Hemoglobin 12.6 g/dL (13.0-18.0); Mean Corp Hgb Conc. 33.5 g/dL (33.0-37.0); Mean Corpuscular Hgb 28.1 pg (27.0-31.0); Mean Corpuscular Volume 83.9 fL (80.0-94.0); Mean Platelet Volume 9.2 fL (7.4-10.4); Nucleated Red Blood Cells % 0 % (-); Platelet Count 263 10^3/uL (130-400); Red Blood Cell Count 4.48 10^6/uL (4.70-6.10); Red Cell Dist. Width 13.4 % (11.5-14.5); White Blood Cell Count 8.1 10^3/uL (4.8-10.8)
[2024-03-27 07:41] LABS: Glucose - Point of Care 87 mg/dl (70-99)
[2024-03-27 07:49] LABS: ALT (SGPT) 42 U/L (0-50); AST (SGOT) 47 U/L (17-59); Albumin 3.4 g/dl (3.5-5.0); Alkaline Phosphatase 92 U/L (38-126); Blood Urea Nitrogen 20 mg/dl (9-20); Carbon Dioxide 22 mmol/L (22-30); Chloride 105 mmol/L (98-107); Estimated Creatinine Clearance 43 ml/min; Glucose 97 mg/dl (70-99); Potassium 3.5 mmol/L (3.5-5.1); Sodium 137 mmol/L (135-145); Total Bilirubin 0.6 mg/dl (0.2-1.3); Total Protein 6.7 g/dl (6.3-8.2)
[2024-03-27] MEDS: FLOMAX 0.4 MG PO (08:07)
[2024-03-27] MEDS: NORVASC 2.5 MG PO ×2 (08:07→20:23)
[2024-03-27] MEDS: PLAVIX 75 MG PO (08:07)
[2024-03-27] MEDS: PROTONIX 40 MG PO (08:07)
[2024-03-27] MEDS: LIPITOR 80 MG PO (08:07)
[2024-03-27] MEDS: HEPARIN 5000 UNITS SC ×2 (08:07→20:23)
[2024-03-27] MEDS: LOW STRENGTH ASPIRIN 81 MG PO (08:07)
[2024-03-27] MEDS: LASIX 20 MG PO (09:55)
[2024-03-27 11:33] LABS: Glucose - Point of Care 102 mg/dl (70-99)
--- NOTE | 2024-03-27 12:25 | W.PN.HOSP.TC ---
Today's Communication/Plan
-
Monitor vital signs see plan
Continue with antibiotics
Follow cultures
Monitor creatinine
Bladder scan
Assessment / Plan
Assessment / Plan
General: Other (73y M sleeping comfortably. No acute distress.)
HEENT: Moist mucous membranes and PERRLA
Respiratory: Other (Few coarse breath sounds at the bases - L > R. No wheezing or rales.)
Cardiac: S1/S2 and Tachycardia; No Murmur
GI: Soft, Non Tender, Non Distended and Normal Bowel Sounds
Musculoskeletal: No Clubbing, No Cyanosis and No Edema
Neuro: Awake, Alert and Other (LUE weakness appreciated.)
Pneumonia, suspect hospital acquired
Sepsis secondary to the above
Acute TME secondary to the above
- Patient presents with fever, tachycardia, tachypnea and cough / abnormal CXR.
- CXR done at [facility] with more generalized / mild interstitial markings
covid,flu neb
- Follow fever curve. Follow-up micro results. BCX NGTD
- Follow for clinical improvement.
If fevers persist then will need ID evaluation
cw zosyn for now; MRSA pending
Seen by speech, now on regular diet
Diarrhea
- ? infectious v med related.
- Stool studies are pending. Norovirus, C. difficile negative
- Hold metformin / semaglutide / etc.
- Follow frequency of stools.
CT abdomen without acute abnormality
Mild biliary sludge, LFTs normal
ASCVD
Recent CVA with L Sided Weakness
- Stable. Continue current med regimen including DAPT, etc. continue with aspirin and Plavix currently. Discontinue Plavix on 03/31 and continue aspirin definitely
- PT / OT / Speech evaluations.
- Follow for continued improvement.
- Monitor for any new / worsening deficits.
Benign Hypertension
- Stable. No evidence of hypotension. Normal Lactate.
- Hold amlodipine acutely.
- Resume BP meds if patient remains clinically stable.
Restart Lasix
KVNG on CKD III
Fena suggest prerenal
on lasix
monitor
DM-II
- Stable. Hold PO medications acutely.
- Note recent diarrhea - ? secondary to metformin / semaglutide / etc.
- Follow glucose and cover with SSI as needed.
Chronic HFpEF
- Stable. No current evidence of volume overload.
- Follow I/Os, daily weights, etc.
Frontotemporal Dementia with Behavioral Disturbance
- Stable. Continue current med regimen for now.
- Follow for any acute changes.
DVT Prophylaxis: Subcut Heparin
Code Status: Full
PT/OT acute rehab
Anticipated Discharge: 24 - 48 hours
Subjective/Interval History
-
Date of Service: March 27, 2024
denies pain
Objective Data
-
Labs:
Laboratory Results
03/27/24
07:05
WBC 8.1
Hgb 12.6 L
Hct 37.6 L
Plt Count 263
Sodium 137
Potassium 3.5
Chloride 105
Carbon Dioxide 22
BUN 20
Creatinine 1.8 H
Glucose 97
Calcium 9.0
Total Bilirubin 0.6
AST 47
ALT 42
Alkaline Phosphatase 92
Vital Signs:
Vital Signs
Temp Pulse Resp BP Pulse Ox
98.5 F 83 16 132/71 98
03/27/24 11:18 03/27/24 11:18 03/27/24 11:18 03/27/24 11:18 03/27/24 11:18
I&O
03/26/24 03/27/24 03/28/24
06:59 06:59 06:59
Intake Total 170 / 170 820 / 820
Output Total 810 / 810
Balance 170 / 170
[2024-03-27] MEDS: DESYREL 25 MG PO (14:04)
--- NOTE | 2024-03-27 16:03 | CM ---
Placed a call to Yuly in admissions at [facility] who answered but stated to call Sol, . Called Sol who stated that for acceptance back to [facility], a new PNMR consult will not be needed, however patient will need new acute care auth
through [facility].
Plan: Case management will continue to follow and assist with discharge planning. Back to [facility] after obtaining hopeful auth.
[2024-03-27 16:40] LABS: Glucose - Point of Care 138 mg/dl (70-99)
[2024-03-27] MEDS: DESYREL 50 MG PO (21:12)
[2024-03-27] MEDS: ARICEPT 5 MG PO (21:12)
[2024-03-27 21:31] LABS: Glucose - Point of Care 133 mg/dl (70-99)
[2024-03-28] VITALS (7 sets, daily range): BP systolic 125–140; BP diastolic 55–79; PULSE 81; O2SAT 98; BMI 33.1
[2024-03-28] MEDS: ZOSYN 50 IV ×2 (01:56→09:29)
[2024-03-28 07:42] LABS: % Basophils 0.4 % (0-2); % Eosinophils 1.2 % (0-6); % Immature Granulocytes 0.4 % (0-0.5); % Lymphocytes 22.7 % (20.5-51.1); % Neutrophils 64.3 % (42.2-75.2); Absolute Eosinophils 0.1 10^3/uL (0-0.7); Absolute Lymphocytes 1.6 10^3/uL (1.2-3.4); Absolute Monocytes 0.8 10^3/uL (0.1-0.6); Absolute Neutrophils 4.4 10^3/uL (1.4-6.5); Hematocrit 34.9 % (39.0-52.0); Hemoglobin 11.7 g/dL (13.0-18.0); Mean Corp Hgb Conc. 33.5 g/dL (33.0-37.0); Mean Corpuscular Hgb 28.2 pg (27.0-31.0); Mean Corpuscular Volume 84.1 fL (80.0-94.0); Mean Platelet Volume 9.6 fL (7.4-10.4); Nucleated Red Blood Cells % 0 % (-); Platelet Count 253 10^3/uL (130-400); Red Blood Cell Count 4.15 10^6/uL (4.70-6.10); Red Cell Dist. Width 13.2 % (11.5-14.5); White Blood Cell Count 6.9 10^3/uL (4.8-10.8)
[2024-03-28 07:59] LABS: ALT (SGPT) 38 U/L (0-50); AST (SGOT) 41 U/L (17-59); Albumin 3.3 g/dl (3.5-5.0); Alkaline Phosphatase 91 U/L (38-126); Blood Urea Nitrogen 20 mg/dl (9-20); Calcium 8.7 mg/dl (8.4-10.2); Carbon Dioxide 26 mmol/L (22-30); Chloride 101 mmol/L (98-107); Estimated Creatinine Clearance 35 ml/min; Glucose 98 mg/dl (70-99); Potassium 3.4 mmol/L (3.5-5.1); Sodium 138 mmol/L (135-145); Total Bilirubin 0.5 mg/dl (0.2-1.3); Total Protein 6.7 g/dl (6.3-8.2); eGFR 31.05
[2024-03-28 08:06] LABS: Glucose - Point of Care 96 mg/dl (70-99)
[2024-03-28] MEDS: PLAVIX 75 MG PO (09:23)
[2024-03-28] MEDS: PROTONIX 40 MG PO (09:23)
[2024-03-28] MEDS: HEPARIN 5000 UNITS SC (09:23)
[2024-03-28] MEDS: KCL 20 MEQ PO (09:23)
[2024-03-28] MEDS: LOW STRENGTH ASPIRIN 81 MG PO (09:23)
[2024-03-28] MEDS: LIPITOR 80 MG PO (09:23)
[2024-03-28] MEDS: NORVASC 2.5 MG PO ×2 (09:25→23:11)
[2024-03-28] MEDS: FLOMAX 0.4 MG PO (09:25)
[2024-03-28] MEDS: LASIX 20 MG PO (09:25)
--- NOTE | 2024-03-28 12:16 | W.PN.HOSP.TC ---
Today's Communication/Plan
-
monitor vital signs see plan
Switch Zosyn to Augmentin
Follow fever curve
Bladder scan
Nephrology evaluation
Check urine eos
Assessment / Plan
Assessment / Plan
General: Other (73y M sleeping comfortably. No acute distress.)
HEENT: Moist mucous membranes and PERRLA
Respiratory: Other (Few coarse breath sounds at the bases - L > R. No wheezing or rales.)
Cardiac: S1/S2 and Tachycardia; No Murmur
GI: Soft, Non Tender, Non Distended and Normal Bowel Sounds
Musculoskeletal: No Clubbing, No Cyanosis and No Edema
Neuro: Awake, Alert and Other (LUE weakness appreciated.)
Pneumonia, suspect hospital acquired
Sepsis secondary to the above
Acute TME secondary to the above
- Patient presents with fever, tachycardia, tachypnea and cough / abnormal CXR.
- CXR done at [facility] with more generalized / mild interstitial markings
covid,flu neb
- Follow fever curve. Follow-up micro results. BCX NGTD
- Follow for clinical improvement.
If fevers persist then will need ID evaluation
Switch Zosyn to Augmentin; MRSA neg
Seen by speech, now on regular diet
Diarrhea
- ? infectious v med related.
- Stool studies are pending. Norovirus, C. difficile negative
- Hold metformin / semaglutide / etc.
- Follow frequency of stools.
CT abdomen without acute abnormality
Mild biliary sludge, LFTs normal
Hypokalemia
Replete
ASCVD
Recent CVA with L Sided Weakness
- Stable. Continue current med regimen including DAPT, etc. continue with aspirin and Plavix currently. Discontinue Plavix on 03/31 and continue aspirin definitely
- PT / OT / Speech evaluations.
- Follow for continued improvement.
- Monitor for any new / worsening deficits.
KVNG on CKD III
Fena suggest prerenal
on lasix
monitor
check urine eos
switch zosyn to augmentin
consult nephrology
bladder scan
Benign Hypertension
- Stable. No evidence of hypotension. Normal Lactate.
- Resume BP meds if patient remains clinically stable.
Restart Lasix
DM-II
- Stable. Hold PO medications acutely.
- Note recent diarrhea - ? secondary to metformin / semaglutide / etc.
- Follow glucose and cover with SSI as needed.
Chronic HFpEF
- Stable. No current evidence of volume overload.
- Follow I/Os, daily weights, etc.
Frontotemporal Dementia with Behavioral Disturbance
- Stable. Continue current med regimen for now.
- Follow for any acute changes.
DVT Prophylaxis: Subcut Heparin
Code Status: Full
PT/OT acute rehab
I spent a total of 52 minutes with the patient or on the floor. More than 50% of this time involved counseling and coordination of care.
Anticipated Discharge: 24 - 48 hours
Subjective/Interval History
-
Date of Service: March 28, 2024
denies pain
Objective Data
-
Labs:
Laboratory Results
03/28/24
06:28
WBC 6.9
Hgb 11.7 L
Hct 34.9 L
Plt Count 253
Sodium 138
Potassium 3.4 L
Chloride 101
Carbon Dioxide 26
BUN 20
Creatinine 2.2 H
Glucose 98
Calcium 8.7
Total Bilirubin 0.5
AST 41
ALT 38
Alkaline Phosphatase 91
Vital Signs:
Vital Signs
Temp Pulse Resp BP Pulse Ox
99.4 F 81 16 134/77 94
03/28/24 11:00 03/28/24 11:00 03/28/24 11:00 03/28/24 11:00 03/28/24 11:00
I&O
03/27/24 03/28/24 03/29/24
06:59 06:59 06:59
Intake Total 820 / 820 1140 / 1140
Output Total 810 / 810
Balance 1140 / 1140
[2024-03-28 12:38] LABS: Glucose - Point of Care 124 mg/dl (70-99)
[2024-03-28] MEDS: AUGMENTIN 875 MG/125 MG 1 TABLET PO ×2 (13:19→23:16)
--- NOTE | 2024-03-28 14:01 | W.CON.NEPH ---
Consultation
-
Date/Time Consultation Requested: 03/28/24 at 12:18 PM
Date/Time Consultation Performed: 03/28/24 at 2 PM
Requesting Provider: Dr. alfonso
Performing Provider: Dr Amos Savage
Reason for Consultation: acute on chronic kidney disease
Medical History
-
Chief Complaint: AK I
History of Present Illness:
73y M with PMH significant for HTN, DM-II and recent CVA who presents to ED from [facility] for evaluation of fever and cough. Patient developed cough and fever at [facility] within the past 24 hours. COVID testing was done which was negative. His
symptoms persisted and his fever increased to Tmax of 102.8 and patient was sent to the ED for further evaluation and treatment.
real consultation request for acute or chronic kidney disease with a baseline creatinine around 1.1-1.3 with a creatinine of 2.2 on consultation
although from a renal standpoint since his past admission for recent CBA his creatinine had been running from 1.52 to 1.9
Past Medical History
hypertension
hyperlipidemia
PAD
type 2 diabetes
HFpEF
chronic kidney disease
Acute CVA (03/2024)
Social History
non-smoker no alcohol use currently
former smoker
Family History
no renal disease
Allergies / Home Medications
Allergy/AdvReac Type Severity Reaction Status Date / Time
No Known Allergies Allergy Verified 03/08/24 13:44
�Medication �Instructions �Recorded �Confirmed �Type
atorvastatin 80 mg tablet 80 mg PO QPM High Cholesterol 03/08/24 03/25/24 History
donepezil 5 mg tablet 5 mg PO HS memory/cognition 03/08/24 03/25/24 History
furosemide 40 mg tablet 20 mg PO DAILY Fluid 03/08/24 03/25/24 History
Retention/Swelling
tamsulosin 0.4 mg capsule 0.4 mg PO HS Urinary Issue 03/08/24 03/25/24 History
acetaminophen 325 mg tablet 650 mg PO Q4HPRN PRN mild pain 03/12/24 03/25/24 History
(Tylenol)
amlodipine 2.5 mg tablet (Norvasc) 2.5 mg PO BID Blood Pressure 03/12/24 03/25/24 History
aspirin 81 mg chewable tablet 81 mg PO DAILY Blood Clot 03/12/24 03/25/24 History
Prevention/Tx
bisacodyl 10 mg rectal suppository 10 mg ID DAILYPRN PRN constipation 03/12/24 03/25/24 History
(Dulcolax (bisacodyl))
bisacodyl 5 mg tablet,delayed 10 mg PO DAILYPRN PRN constipation 03/12/24 03/25/24 History
release (Dulcolax (bisacodyl))
clopidogrel 75 mg tablet 75 mg PO DAILY Blood Clot 03/12/24 03/25/24 History
Prevention/Tx
docusate sodium 100 mg capsule 100 mg PO BID Constipation 03/12/24 03/25/24 History
(Colace)
ergocalciferol (vitamin D2) 1,250 1,250 mcg PO FR Supplement 03/12/24 03/25/24 History
mcg (50,000 unit) capsule
heparin (porcine) 5,000 unit/mL (1 5,000 unit SC BID Blood Clot 03/12/24 03/25/24 History
mL) injection cartridge Prevention/Tx
ondansetron HCl 4 mg tablet 4 mg PO Q8HPRN PRN nausea 03/12/24 03/25/24 History
sennosides 8.6 mg tablet (senna) 17.2 mg PO HS Constipation 03/12/24 03/25/24 History
trazodone 50 mg tablet 25 mg PO DAILY@1500 depression 03/12/24 03/25/24 History
trazodone 50 mg tablet 50 mg PO HS depression/sleep 03/12/24 03/25/24 History
cetylpyridinium chloride 1 dick mucous membrane Q4HPRN PRN 03/25/24 03/25/24 History
sore throat
cyanocobalamin (vitamin B-12) 1,000 mcg PO DAILY Supplement 03/25/24 03/25/24 History
1,000 mcg tablet
dextromethorphan-guaifenesin 10 5 ml PO Q4HPRN PRN cough 03/25/24 03/25/24 History
mg-200 mg/5 mL oral liquid
lidocaine 4 % topical patch 1 patch topical DAILY PAIN 03/25/24 03/25/24 History
pantoprazole 20 mg tablet,delayed 20 mg PO DAILY Gastrointestinal 03/25/24 03/25/24 History
release (Protonix) Issue
trazodone 50 mg tablet 25 mg PO HSPRN PRN sleep 03/25/24 03/25/24 History
Review of Systems
-
cough
no chest pain or shortness of breath
All other systems: Negative unless noted
Physical Exam
Vital Signs
Vital Signs
Temp Pulse Resp BP Pulse Ox
99.4 F 81 16 134/77 94
03/28/24 11:00 03/28/24 11:00 03/28/24 11:00 03/28/24 11:00 03/28/24 11:00
Lab Results
WBC 6.9 10^3/uL (4.8-10.8) 03/28/24 06:28
RBC 4.15 10^6/uL (4.70-6.10) L 03/28/24 06:28
Hgb 11.7 g/dL (13.0-18.0) L 03/28/24 06:28
Hct 34.9 % (39.0-52.0) L 03/28/24 06:28
Plt Count 253 10^3/uL (130-400) 03/28/24 06:28
Sodium 138 mmol/L (135-145) 03/28/24 06:28
Potassium 3.4 mmol/L (3.5-5.1) L 03/28/24 06:28
Chloride 101 mmol/L (98-107) 03/28/24 06:28
Carbon Dioxide 26 mmol/L (22-30) 03/28/24 06:28
BUN 20 mg/dl (9-20) 03/28/24 06:
Creatinine 2.2 mg/dL (0.7-1.3) H 03/28/24:
eGFR 31.05 03/28/24:28
Glucose 98 mg/dl (70-99) 03/28/24:
Calcium 8.7 mg/dl (8.4-10.2) 03/28/24:
Albumin 3.3 g/dl (3.5-5.0) L 03/28/24 06:28
Physical Exam
General no acute distress
HEENT no cephalic atraumatic extraocular muscle intact no scleral icterus no JVD neck supple
lungs course bilateral
heart regular S1-S2 positive
abdomen soft nontender positive bowel sounds
extremities no edema pulses present bilateral
Neurologically nonfocal alert and oriented x 3
Skin no lesions no abrasions no petechiae
Psych normal affect no bizarre behavior
Data Reviewed
-
CT Scan: Image Personally Visualized and interpreted ( no obstructive pathology)
Assessment/Plan
-
73y M with PMH significant for HTN, DM-II and recent CVA who presents to ED from [facility] for evaluation of fever and cough. Patient developed cough and fever at [facility] within the past 24 hours. COVID testing was done which was negative. His
symptoms persisted and his fever increased to Tmax of 102.8 and patient was sent to the ED for further evaluation and treatment.
real consultation request for acute or chronic kidney disease with a baseline creatinine around 1.5 to 1.8 with a creatinine of 2.2 on consultation
acute and chronic kidney disease follows with Dr. Maldondao with baseline creatinine your 1.2 with most recent creatinine of 1.5 to 1.8 early March when he was admitted for CVA
Hypertension= stable
type II diabetes= stable
recent CVA
fever/diarrhea
diastolic heart failure= compensated
plan:
acuity: suspect this is hemodynamic and mediated it with fevers although no documentations of any hypotensive episode
maintain Barrientos catheter
NO obstruction on CAT scan
hold metformin/ GLP-1 inhibitor as he was on this in rehab
discontinue Lasix
encourage the patient to drink more water as is urine numbers concentrated in the four catheter
I will recheck your indices As well as eos which have already been ordered
and i do not feel he needs IV fluids at this time but will monitor
Fena consistent with the prerenal at a 0.5%
corresponded with primary hospitalist
[2024-03-28] MEDS: DESYREL 25 MG PO (14:42)
[2024-03-28 16:36] LABS: Glucose - Point of Care 144 mg/dl (70-99)
[2024-03-28 21:34] LABS: Glucose - Point of Care 150 mg/dl (70-99)
[2024-03-28] MEDS: HEPARIN SC ×2 (23:00→23:12)
[2024-03-28] MEDS: ARICEPT 5 MG PO (23:11)
[2024-03-28] MEDS: DESYREL 50 MG PO (23:17)
--- NOTE | 2024-03-29 05:32 | PTCARENOTE ---
@2030; Pt sleeping deeply and would not verbally respond.Pt was moving extremities under the covers but would not speak and not cooperative with doing neuro check. @2330;Pt eyes open and agitated with doing pt care/ medications. Pt refused sq
heparin and stated,'Not taking it'. He would allow another RN to do his neuro check.Took 20 minutes to give pt his evening medications because he was questioning the same meds many times.@0400;PCT and this RN went in to do neuro check and place
condom cath for urine sample.Pt stated,' you yesenia are ganging up on me'.Pt refused neuro check but would allow condom cath to be placed on.@0400; Pt refused to cooperate with neuro check.
[2024-03-29 06:00] VITALS: BMI 33.7
[2024-03-29 07:00] VITALS: BP 123/49
[2024-03-29 08:03] LABS: Glucose - Point of Care 100 mg/dl (70-99)
[2024-03-29] MEDS: HEPARIN SC ×2 (08:58→20:43)
[2024-03-29] MEDS: LOW STRENGTH ASPIRIN 81 MG PO (08:58)
[2024-03-29] MEDS: PROTONIX 40 MG PO (08:58)
[2024-03-29] MEDS: LIPITOR 80 MG PO (08:58)
[2024-03-29] MEDS: PLAVIX 75 MG PO (08:58)
[2024-03-29] MEDS: FLOMAX 0.4 MG PO (08:58)
[2024-03-29] MEDS: AUGMENTIN 875 MG/125 MG 1 TABLET PO ×2 (08:58→20:43)
[2024-03-29] MEDS: NORVASC 2.5 MG PO ×2 (08:58→20:43)
[2024-03-29 09:00] LABS: Body Fluid for Eosinophils No Eosinophils seen
[2024-03-29 09:45] LABS: % Basophils 0.5 % (0-2); % Eosinophils 3.6 % (0-6); % Immature Granulocytes 0.3 % (0-0.5); % Lymphocytes 30.5 % (20.5-51.1); % Monocytes 9.2 % (1.7-9.3); % Neutrophils 55.9 % (42.2-75.2); Absolute Eosinophils 0.2 10^3/uL (0-0.7); Absolute Monocytes 0.6 10^3/uL (0.1-0.6); Absolute Neutrophils 3.6 10^3/uL (1.4-6.5); Hematocrit 35.3 % (39.0-52.0); Mean Corpuscular Hgb 28.4 pg (27.0-31.0); Mean Corpuscular Volume 83.5 fL (80.0-94.0); Mean Platelet Volume 9.2 fL (7.4-10.4); Nucleated Red Blood Cells % 0 % (-); Platelet Count 256 10^3/uL (130-400); Red Blood Cell Count 4.23 10^6/uL (4.70-6.10); Red Cell Dist. Width 13.2 % (11.5-14.5); White Blood Cell Count 6.4 10^3/uL (4.8-10.8)
[2024-03-29 10:13] LABS: Albumin 3.4 g/dl (3.5-5.0); Chloride 101 mmol/L (98-107); Potassium 3.6 mmol/L (3.5-5.1); Sodium 137 mmol/L (135-145)
[2024-03-29 10:22] LABS: ALT (SGPT) 46 U/L (0-50); AST (SGOT) 46 U/L (17-59); Alkaline Phosphatase 88 U/L (38-126); Blood Urea Nitrogen 20 mg/dl (9-20); Calcium 8.8 mg/dl (8.4-10.2); Carbon Dioxide 26 mmol/L (22-30); Estimated Creatinine Clearance 35 ml/min; Glucose 103 mg/dl (70-99); Total Bilirubin 0.6 mg/dl (0.2-1.3); Total Protein 6.7 g/dl (6.3-8.2); eGFR 31.05
--- NOTE | 2024-03-29 11:27 | W.PN.HOSP.TC ---
Today's Communication/Plan
-
Monitor vital signs
see plan
continue with antibiotic
Monitor renal function
Bladder scan
Assessment / Plan
Assessment / Plan
General: Other (73y M sleeping comfortably. No acute distress.)
HEENT: Moist mucous membranes and PERRLA
Respiratory: Other (Few coarse breath sounds at the bases - L > R. No wheezing or rales.)
Cardiac: S1/S2 and Tachycardia; No Murmur
GI: Soft, Non Tender, Non Distended and Normal Bowel Sounds
Musculoskeletal: No Clubbing, No Cyanosis and No Edema
Neuro: Awake, Alert and Other (LUE weakness appreciated.)
Pneumonia, suspect hospital acquired
Sepsis secondary to the above
Acute TME secondary to the above
- Patient presents with fever, tachycardia, tachypnea and cough / abnormal CXR.
- CXR done at [facility] with more generalized / mild interstitial markings
covid,flu neb
- Follow fever curve. Follow-up micro results. BCX NGTD
- Follow for clinical improvement.
If fevers persist then will need ID evaluation
Switch Zosyn to Augmentin; MRSA neg
Seen by speech, now on regular diet
Diarrhea
resolved
- ? infectious v med related.
- Stool studies are pending. Norovirus, C. difficile negative
- Hold metformin / semaglutide / etc.
- Follow frequency of stools.
CT abdomen without acute abnormality
Mild biliary sludge, LFTs normal
Hypokalemia
Replete
ASCVD
Recent CVA with L Sided Weakness
- Stable. Continue current med regimen including DAPT, etc. continue with aspirin and Plavix currently. Discontinue Plavix on 03/31 and continue aspirin definitely
- PT / OT / Speech evaluations.
- Follow for continued improvement.
- Monitor for any new / worsening deficits.
KVNG on CKD III
Fena suggest prerenal
hold lasix; resume when ok with nephrology
monitor
urine eos neg
switched zosyn to augmentin
nephrology following
bladder scan
Benign Hypertension
- Stable. No evidence of hypotension. Normal Lactate.
- Resume BP meds if patient remains clinically stable.
DM-II
- Stable. Hold PO medications acutely.
- Note recent diarrhea - ? secondary to metformin / semaglutide / etc. Patient has not been getting ozempic or metformin
- Follow glucose and cover with SSI as needed.
Chronic HFpEF
- Stable. No current evidence of volume overload.
- Follow I/Os, daily weights, etc.
Frontotemporal Dementia with Behavioral Disturbance
- Stable. Continue current med regimen for now.
- Follow for any acute changes.
DVT Prophylaxis: Subcut Heparin
Code Status: Full
PT/OT acute rehab when stable; per CM would need auth
I spent a total of 51 minutes with the patient or on the floor. More than 50% of this time involved counseling and coordination of care.
Anticipated Discharge: 24 - 48 hours
Subjective/Interval History
-
Date of Service: March 29, 2024
denies pain
Objective Data
-
Labs:
Laboratory Results
03/29/24
09:10
WBC 6.4
Hgb 12.0 L
Hct 35.3 L
Plt Count 256
Sodium 137
Potassium 3.6
Chloride 101
Carbon Dioxide 26
BUN 20
Creatinine 2.2 H
Glucose 103 H
Calcium 8.8
Total Bilirubin 0.6
AST 46
ALT 46
Alkaline Phosphatase 88
Vital Signs:
Vital Signs
Temp Pulse Resp BP Pulse Ox
98.2 F 70 16 123/49 100
03/29/24 07:00 03/29/24 07:00 03/29/24 07:00 03/29/24 07:00 03/29/24 07:00
I&O
03/28/24 03/29/24 03/30/24
06:59 06:59 06:59
Intake Total 1140 / 1140 720 / 720 240 / 240
Output Total 400 / 400
Balance 1140 / 1140 320 / 320 240 / 240
[2024-03-29 12:25] LABS: Glucose - Point of Care 120 mg/dl (70-99)
[2024-03-29] MEDS: NOVOLOG FLEXPEN-LOW RESISTANCE SC (12:27)
[2024-03-29] MEDS: DESYREL 25 MG PO (14:55)
[2024-03-29 15:00] VITALS: BP 131/64
[2024-03-29 17:31] LABS: Glucose - Point of Care 153 mg/dl (70-99)
[2024-03-29] MEDS: NOVOLOG FLEXPEN-LOW RESISTANCE 1 UNITS SC (18:23)
[2024-03-29 20:42] VITALS: BP 118/70
[2024-03-29 22:14] LABS: Glucose - Point of Care 106 mg/dl (70-99)
--- NOTE | 2024-03-29 22:30 | PTCARENOTE ---
@2200; Pt refused SQ heparin this evening.Verbal report given to LATOYA Saldivar and pt transfer to room 325.
[2024-03-29] MEDS: DESYREL 50 MG PO (23:02)
[2024-03-29] MEDS: ARICEPT 5 MG PO (23:02)
[2024-03-29 23:10] VITALS: BP 150/77
[2024-03-30 06:00] VITALS: BMI 33.5
[2024-03-30 08:15] VITALS: BP 177/66
[2024-03-30 08:16] LABS: Glucose - Point of Care 95 mg/dl (70-99)
[2024-03-30] MEDS: NOVOLOG FLEXPEN-LOW RESISTANCE SC ×4 (08:21→17:05)
[2024-03-30] MEDS: PROTONIX 40 MG PO (09:32)
[2024-03-30] MEDS: AUGMENTIN 875 MG/125 MG 1 TABLET PO ×2 (09:32→20:31)
[2024-03-30] MEDS: LOW STRENGTH ASPIRIN 81 MG PO (09:32)
[2024-03-30] MEDS: FLOMAX 0.4 MG PO (09:32)
[2024-03-30] MEDS: LIPITOR 80 MG PO (09:32)
[2024-03-30] MEDS: NORVASC 2.5 MG PO ×2 (09:32→20:31)
[2024-03-30] MEDS: PLAVIX 75 MG PO (09:33)
[2024-03-30] MEDS: HEPARIN SC ×2 (09:33→21:11)
--- NOTE | 2024-03-30 10:49 | W.PN.HOSP.TC ---
Today's Communication/Plan
-
see AP
Assessment / Plan
Assessment / Plan
A/P:
# Pneumonia, suspect hospital acquired
# Sepsis secondary to the above
# Acute Metabolic encephalopathy secondary to the above
CXR done at [facility] with more generalized / mild interstitial markings
covid/ flu negative, MRSA screen negative
Switched Zosyn to Augmentin x5 days
Seen by speech, cleared for regular diet thin liquid
# Diarrhea, resolved
Stool studies, Norovirus, C difficile negative
CT abdomen without acute abnormality
LFTs normal
# Hypokalemia
Repleted
# ASCVD
# Recent CVA with L Sided Weakness, stable.
Continue current med regimen including DAPT, etc. Discontinue Plavix on 03/31 and continue aspirin definitely
PT / OT recc acute rehab
# KVNG on CKD III
Fena suggest prerenal
urine eos neg
hold lasix; resume when ok with nephrology
switched zosyn to Augmentin
monitor SCr
nephrology following
bladder scan
# Benign Hypertension, Stable.
Cont PERMIT REVIEW ASSISTANT Norvasc,
add IV hydrazine PRN
# DM-II, Stable.
Hold PO medications acutely.
Follow glucose and cover with SSI as needed.
BG has been stable
# Chronic HFpEF, Stable.
No current evidence of volume overload.
Follow I/Os, daily weights, etc.
# Frontotemporal Dementia with Behavioral Disturbance, Stable.
Continue current med regimen for now.
Follow for any acute changes.
DVT Prophylaxis: Subcut Heparin
Code Status: Full
PT/OT acute rehab when stable; per CM would need auth
extensive discussion with pt. Total time spent 51 min
Anticipated Discharge: 24 - 48 hours
Subjective/Interval History
-
Date of Service: March 30, 2024
Objective Data
-
Labs:
Laboratory Results
03/30/24
06:00
WBC Pending
Hgb Pending
Hct Pending
Plt Count Pending
Sodium Pending
Potassium Pending
Chloride Pending
Carbon Dioxide Pending
BUN Pending
Creatinine Pending
Glucose Pending
Calcium Pending
Total Bilirubin Pending
AST Pending
ALT Pending
Alkaline Phosphatase Pending
Vital Signs:
Vital Signs
Temp Pulse Resp BP Pulse Ox
37.2 C 68 16 177/66 96
03/30/24 08:15 03/30/24 09:32 03/30/24 08:15 03/30/24 09:32 03/30/24 08:15
I&O
03/29/24 03/30/24 03/31/24
06:59 06:59 06:59
Intake Total 720 / 720 840 / 840 122 / 122
Output Total 400 / 400 350 / 350
Balance 320 / 320 490 / 490 122 / 122
Review of Systems
-
All other systems: Reviewed and negative
Physical Exam
-
General: Well Developed, Well Nourished, No Apparent Distress, Comfortable and Conversant; Negative Respiratory Distress
HEENT: Normocephalic, Atraumatic, Nose Appears Normal and Ears Appear Normal; Negative Oxygen
Respiratory: Clear to Auscultation and Non Labored Respirations; Negative Accessory Resp Muscle Use
Cardiac: Regular Rhythm and S1/S2
GI: Soft, Nontender, Nondistended and Normal Bowel Sounds
Skin: Warm and Dry
Neuro: Awake, Alert and Oriented
Psych: Calm and Intact Judgement/Insight
Data Reviewed
-
Labs: Labs Reviewed by me
[2024-03-30 11:44] VITALS: BP 136/71
[2024-03-30 11:45] VITALS: BP 136/71
[2024-03-30 12:16] LABS: Glucose - Point of Care 178 mg/dl (70-99)
[2024-03-30] MEDS: DESYREL PO (15:00)
--- NOTE | 2024-03-30 15:06 | W.PN.NEPH.PH ---
Today's Communication / Plan
-
follow labs
Assessment/Plan
-
IMP:
acute and chronic kidney disease follows with Dr. Maldonado with baseline creatinine your 1.2 with most recent creatinine of 1.5 to 1.8 early March when he was admitted for CVA
Hypertension
type II diabetes
recent CVA
fever/diarrhea
diastolic heart failure
plan:
KVNG-cr stable at 2.2, pending labs today
UA with microhematuria-chronic h/o sub nephrotic proteinuria, U eosinophil neg
he had CT with contrast on 03/25-possibility of CHEYANNE vs hemodynamic with fever, fena low
follow bladder scan, UOP not recorded
NO obstruction on CAT scan
avoid nephrotoxins and hold metformin/ GLP-1 inhibitor as he was on this in rehab
holding Lasix, wt stable
encourage po intake
-
-
Date of Service: March 30, 2024
CC / HPI / ROS
-
Chief Complaint:
KVNG with CKD
History of Present Illness:
labs pending
BP stable, UOP not recorded
no fever, on RA
Review of Systems:
no cp or sob
no n/v
still working on taking meds form this am
Labs
-
Labs:
eGFR 31.05 03/29/24 09:10
Physical Exam
-
Vital Signs:
Vital Signs
Temp Pulse Resp BP Pulse Ox
99 F 64 16 136/71 96
03/30/24 08:15 03/30/24 11:45 03/30/24 08:15 03/30/24 11:45 03/30/24 08:15
Cardiovascular:: Regular rate and rhythm
Respiratory:: Bilateral: CTA
Lung Excursion:: Normal
Extremity Edema:: None: Bilateral: (trace)
Iliana Catheter: No
[2024-03-30 15:50] VITALS: BP 145/77
[2024-03-30 16:49] LABS: Glucose - Point of Care 133 mg/dl (70-99)
[2024-03-30] MEDS: ARICEPT 5 MG PO (20:38)
[2024-03-30] MEDS: DESYREL 50 MG PO (20:38)
[2024-03-31 06:00] VITALS: BMI 34.1
[2024-03-31 08:00] VITALS: BP 134/69
[2024-03-31] MEDS: LOW STRENGTH ASPIRIN 81 MG PO (08:26)
[2024-03-31] MEDS: NORVASC 2.5 MG PO (08:26)
[2024-03-31] MEDS: LIPITOR 80 MG PO (08:26)
[2024-03-31] MEDS: FLOMAX 0.4 MG PO (08:26)
[2024-03-31] MEDS: PROTONIX 40 MG PO (08:26)
[2024-03-31] MEDS: AUGMENTIN 875 MG/125 MG 1 TABLET PO (08:26)
[2024-03-31] MEDS: HEPARIN SC ×2 (08:27→08:42)
[2024-03-31 08:46] LABS: Glucose - Point of Care 120 mg/dl (70-99)
[2024-03-31] MEDS: NOVOLOG FLEXPEN-LOW RESISTANCE SC (08:52)
--- NOTE | 2024-03-31 10:06 | W.PN.HOSP.TC ---
Addendum entered and electronically signed by Nicole Luu MD 03/31/24 15:24:
total DC time 38 min
Original Note:
Today's Communication/Plan
-
see A/P
Assessment / Plan
Assessment / Plan
A/P:
# Pneumonia, suspect hospital acquired
# Sepsis secondary to the above
# Acute Metabolic encephalopathy secondary to the above
CXR done at [facility] with more generalized / mild interstitial markings
covid/ flu negative, MRSA screen negative
Switched Zosyn to Augmentin x5 days
Seen by speech, cleared for regular diet thin liquid
# Diarrhea, resolved
Stool studies, Norovirus, C difficile negative
CT abdomen without acute abnormality
LFTs normal
# Hypokalemia
Repleted
# ASCVD
# Recent CVA with L Sided Weakness, stable.
Continue current med regimen including DAPT, etc. Discontinued Plavix on 03/31 and continue aspirin definitely
PT / OT recc acute rehab
# KVNG on CKD III
Fena suggest prerenal
urine eos neg
hold lasix; resume when ok with nephrology
switched zosyn to Augmentin
monitor SCr (he has been refusing blood draw)
nephrology following
bladder scan
# Benign Hypertension, Stable.
Cont HUMAN RESOURCE MANAGER Norvasc,
add IV hydrazine PRN
# DM-II, Stable.
Hold PO medications acutely.
Follow glucose and cover with SSI as needed.
BG has been stable
# Chronic HFpEF, Stable.
No current evidence of volume overload.
Follow I/Os, daily weights, etc.
# Frontotemporal Dementia with Behavioral Disturbance, Stable.
Continue current med regimen for now.
Follow for any acute changes.
DVT Prophylaxis: Subcut Heparin
Code Status: Full
PT/OT acute rehab
DW RN
DW CM
updated on the phone
Anticipated Discharge: 24 - 48 hours
Subjective/Interval History
-
Date of Service: March 31, 2024
Objective Data
-
Labs:
Laboratory Results
03/31/24
06:00
WBC Pending
Hgb Pending
Hct Pending
Plt Count Pending
Sodium Pending
Potassium Pending
Chloride Pending
Carbon Dioxide Pending
BUN Pending
Creatinine Pending
Glucose Pending
Calcium Pending
Vital Signs:
Vital Signs
Temp Pulse Resp BP Pulse Ox
36.7 C 71 18 131/65 99
03/30/24 15:50 03/30/24 20:31 03/30/24 15:50 03/30/24 20:31 03/30/24 15:50
I&O
03/30/24 03/31/24 04/01/24
06:59 06:59 06:59
Intake Total 840 / 840 502 / 502
Output Total 350 / 350 950 / 950
Balance 490 / 490 -448 / -448
Review of Systems
-
All other systems: Reviewed and negative
Physical Exam
-
General: Well Developed, Well Nourished, No Apparent Distress, Comfortable and Conversant; Negative Respiratory Distress
HEENT: Normocephalic, Atraumatic, Nose Appears Normal and Ears Appear Normal; Negative Oxygen
Respiratory: Clear to Auscultation and Non Labored Respirations; Negative Accessory Resp Muscle Use
Cardiac: Regular Rhythm and S1/S2
GI: Soft, Nontender, Nondistended and Normal Bowel Sounds
Genito-urinary: Other (condom catheter)
Skin: Warm and Dry
Neuro: Awake and Alert
Psych: Calm
Data Reviewed
-
Labs: Labs Reviewed by me
[2024-03-31 11:39] LABS: Glucose - Point of Care 183 mg/dl (70-99)
--- NOTE | 2024-03-31 12:33 | W.PN.NEPH.PH ---
Today's Communication / Plan
-
follow lab s
Assessment/Plan
-
IMP:
acute and chronic kidney disease follows with Dr. Maldonado with baseline creatinine your 1.2 with most recent creatinine of 1.5 to 1.8 early March when he was admitted for CVA
Hypertension
type II diabetes
recent CVA
fever/diarrhea
diastolic heart failure
plan:
KVNG-cr stable at 2.2 as of 03/29, refusing labs , agreeable today
UA with microhematuria-chronic h/o sub nephrotic proteinuria, U eosinophil neg
he had CT with contrast on 03/25-possibility of CHEYANNE vs hemodynamic with fever, fena low
follow bladder scan, UOP non oliguric
NO obstruction on CAT scan
avoid nephrotoxins and hold metformin/ GLP-1 inhibitor as he was on this in rehab
likely resume Lasix as wt increasing
encourage po intake
-
-
Date of Service: March 31, 2024
CC / HPI / ROS
-
Chief Complaint:
KVNG with CKD
History of Present Illness:
labs pending, refused earlier
BP stable, UOP non oliguric wiht out camacho
no fever, on RA
Review of Systems:
no cp or sob
no n/v
difficult to talk
Labs
-
Labs:
eGFR Cancelled 03/30/24 15:00
Albumin Cancelled 03/30/24 15:00
Physical Exam
-
Vital Signs:
Vital Signs
Temp Pulse Resp BP Pulse Ox
98.6 F 66 16 134/69 97
03/31/24 08:00 03/31/24 08:00 03/31/24 08:00 03/31/24 08:00 03/31/24 08:00
Cardiovascular:: Regular rate and rhythm
Respiratory:: Bilateral: CTA (decreased)
Lung Excursion:: Normal
Abdomen:: Nontender and Soft
Extremity Edema:: None: Bilateral:
Camacho Catheter: No
[2024-03-31 12:40] LABS: Hematocrit 34.4 % (39.0-52.0); Hemoglobin 11.8 g/dL (13.0-18.0); Mean Corp Hgb Conc. 34.3 g/dL (33.0-37.0); Mean Corpuscular Hgb 28.3 pg (27.0-31.0); Mean Corpuscular Volume 82.5 fL (80.0-94.0); Mean Platelet Volume 9.2 fL (7.4-10.4); Platelet Count 303 10^3/uL (130-400); Red Blood Cell Count 4.17 10^6/uL (4.70-6.10); Red Cell Dist. Width 12.9 % (11.5-14.5); White Blood Cell Count 8.9 10^3/uL (4.8-10.8)
[2024-03-31 12:42] VITALS: BP 134/64; PULSE 63; O2SAT 99
[2024-03-31 12:43] VITALS: BP 134/64; PULSE 63; O2SAT 99
[2024-03-31 13:12] LABS: Blood Urea Nitrogen 14 mg/dl (9-20); Carbon Dioxide 27 mmol/L (22-30); Chloride 101 mmol/L (98-107); Estimated Creatinine Clearance 45 ml/min; Glucose 159 mg/dl (70-99); Potassium 3.7 mmol/L (3.5-5.1); Sodium 134 mmol/L (135-145)
[2024-03-31] MEDS: NOVOLOG FLEXPEN-LOW RESISTANCE 1 UNITS SC (13:21)
--- NOTE | 2024-03-31 14:56 | CM ---
indicates ready for dc today.
Spoke with Sol bland [phone] bed ready after auth obtained.
Spoke with who is sick with Covid . She said she agrees with dc to [facility] ad agrees with DC and IMM.
Spoke slowly with pt explained IMM and going to [facility]( he was at [facility] prior to admission)
Called [facility] spoke with Yamile olson approved 7 days at [facility]. AUTH NUMBER [id number] NRD 02/05/24 call [phone]
Sol bland aware of auth number and accepted pt today.
aware will dc pt.RN aware .
[facility]
report [phone]
fax [phone]
PLAN To [facility]
--- NOTE | 2024-03-31 15:03 | W.DCSUMMARY ---
Discharge Summary
Discharge Data
Date of Admission: 03/25/24
Date of Discharge: 03/31/24
-
Pending Results: No
Hospital Course
Principal Diagnosis:
Pneumonia, suspect hospital acquired
Acute kidney injury (KVNG) on chronic kidney disease (CKD) stage III
Recent stroke with Left Sided Weakness, stable.
Chronic Diagnoses:�
Recent stroke with left sided weakness, stable.
Benign Hypertension, Stable.
Diabetes type 2
Chronic heart failure with preserved ejection fraction
Frontotemporal Dementia with Behavioral Disturbance, Stable.
Consultations:�
Nephrology
Procedures:�
None
Clinical course:�
This is a 73-year-old male with past medical history as stated above, who was sent in from [facility] for cough and fever.
The patient was at [facility] for stroke (acute R parietal CVA with L sided weakness. He has been at [facility] since 03/11/24).
Problem 1:
Pneumonia, suspect hospital acquired.
His CXR done at [facility] noted more generalized / mild interstitial markings.
His COVID and Flu were negative, MRSA screen was negative.
He was treated with Zosyn and this was changed to Augmentin x5 days total.
He was seen by speech, and was cleared to continue with regular diet thin liquid.
Problem 2:
Recent CVA with L Sided Weakness, stable.
Plavix was discontinued on 03/31 and he can continue with aspirin definitely.
He was discharged back to [facility] to continue therapy.
Problem 3:
KVNG on CKD III.
His FENA suggested prerenal.
His lasix was held and resumed upon discharge.
He serum creatinine improved from 2.2 to 1.7 which is at/around his baseline.
As for the rest of his medical problems, they were stable during his hospital stay.
Discharge Plan
-
Patient Disposition: Acute Rehab Facility
Discharge Diagnosis/Procedures: Pneumonia, suspect hospital acquired;
Acute kidney injury on chronic kidney disease stage III
Recent stroke with Left side weakness, stable;
Frontotemporal Dementia with Behavioral Disturbance, Stable.
Condition: Fair
Diet: As tolerated, Low Fat, Low Cholesterol and Low Sodium
Activity: As tolerated
Driving Restrictions: Not until seen by your Dr
Blood Work: BMP in 1 week
Referrals:
Chava Cm CRNP [Family Provider] - in less than 1 week
Additional Discharge Medication Instructions: Hold metformin and semaglutide due to CKD
Prescriptions:
New
amoxicillin-pot clavulanate 875-125 mg Tablet
1 tab PO Q12 1 Days Qty: 2 0RF
Continued
furosemide 40 mg Tablet
20 mg PO DAILY
atorvastatin 80 mg Tablet
80 mg PO QPM
donepezil 5 mg Tablet
5 mg PO HS
tamsulosin 0.4 mg Capsule
0.4 mg PO HS
sennosides [senna] 8.6 mg Tablet
17.2 mg PO HS
acetaminophen [Tylenol] 325 mg Tablet
650 mg PO Q4HPRN PRN (Reason: mild pain )
trazodone 50 mg Tablet
50 mg PO HS
trazodone 50 mg Tablet
25 mg PO DAILY@1500
ondansetron HCl 4 mg Tablet
4 mg PO Q8HPRN PRN (Reason: nausea )
bisacodyl [Dulcolax (bisacodyl)] 5 mg Tablet,Delayed Release (Dr/Ec)
10 mg PO DAILYPRN PRN (Reason: constipation )
ergocalciferol (vitamin D2) 1,250 mcg (50,000 unit) Capsule
1,250 mcg PO FR
heparin (porcine) 5,000 unit/mL (1 mL) Cartridge
5,000 unit SC BID
amlodipine [Norvasc] 2.5 mg tablet
2.5 mg PO BID
aspirin 81 MG tablet,chewable
81 mg PO DAILY
lidocaine 4 % Adhesive Patch,Medicated
1 patch TOPICAL DAILY
trazodone 50 mg Tablet
25 mg PO HSPRN PRN (Reason: sleep)
cyanocobalamin (vitamin B-12) 1,000 mcg Tablet
1,000 mcg PO DAILY
dextromethorphan-guaifenesin 10-200 mg/5 mL Liquid
5 ml PO Q4HPRN PRN (Reason: cough)
pantoprazole [Protonix] 20 mg Tablet,Delayed Release (Dr/Ec)
20 mg PO DAILY
cetylpyridinium chloride Lozenge
1 dick MUCOUS MEMBRANE Q4HPRN PRN (Reason: sore throat)
Changed
docusate sodium [Colace] 100 mg Capsule
100 mg PO BID PRN (Reason: Constipation) Qty: 0 0RF
Discontinued
bisacodyl [Dulcolax (bisacodyl)] 10 mg Suppository
10 mg DE DAILYPRN PRN (Reason: constipation )
clopidogrel 75 mg tablet
75 mg PO DAILY
Discharge Orders:
Discharge Patient (As Directed); Ordered 03/31/24
Ordered By: Nicole Luu
Discharge Date and Time
Print Language: ARABIC
[2024-03-31 15:13] VITALS: BP 127/63
[2024-03-31] MEDS: DESYREL PO (15:21)
== END 2024-03-31 18:00 | DRG 871 ==
LOC: 3 WEST ACU 05:21
PROVIDERS: Clinical Nurse Specialist Family Health; Internal Medicine; ADMITTING PHYSICIAN Hospitalist; ATTENDING PHYSICIAN Internal Medicine; CONSULT PHYSICIAN Internal Medicine Nephrology; EMERGENCY PHYSICIAN Student in an Organized Health Care Education/Training Program
DX: A41.9 Sepsis, unspecified organism (principal); G92.8 Other toxic encephalopathy; J18.9 Pneumonia, unspecified organism; I13.0 Hypertensive heart and chronic kidney disease with heart failure and stage 1 through stage 4 chronic kidney disease, or unspecified chronic kidney disease; I50.32 Chronic diastolic (congestive) heart failure; N17.9 Acute kidney failure, unspecified; F02.818 Dementia in other diseases classified elsewhere, unspecified severity, with other behavioral disturbance; E11.51 Type 2 diabetes mellitus with diabetic peripheral angiopathy without gangrene; E11.22 Type 2 diabetes mellitus with diabetic chronic kidney disease; E78.00 Pure hypercholesterolemia, unspecified; N18.30 Chronic kidney disease, stage 3 unspecified; G47.33 Obstructive sleep apnea (adult) (pediatric); I25.10 Atherosclerotic heart disease of native coronary artery without angina pectoris; G31.09 Other frontotemporal neurocognitive disorder; E87.6 Hypokalemia; R19.7 Diarrhea, unspecified; Z87.891 Personal history of nicotine dependence; Z79.899 Other long term (current) drug therapy; Z79.82 Long term (current) use of aspirin; Z79.02 Long term (current) use of antithrombotics/antiplatelets; Z79.84 Long term (current) use of oral hypoglycemic drugs; Z79.85 Long-term (current) use of injectable non-insulin antidiabetic drugs; Z86.73 Personal history of transient ischemic attack (TIA), and cerebral infarction without residual deficits
CPT/HCPCS: 71046; 74177; 80048; 80053; 81003; 81015; 81099; 82248; 82570; 82962; 83605; 83735; 84300; 85025; 85027; 87040; 87045; 87046; 87070; 87086; 87324; 87427; 87449; 87502; 87798; 89055; 92526; 92610; 93005; 93970; 97112; 97163; 97167; 97530; Q9967

== ENCOUNTER → 2024-07-27 09:08 | Outpatient (REF) | payer OTHER, SELFPAY | LOC: RCS 09:08 | PROVIDERS: ATTENDING PHYSICIAN Nurse Practitioner | DX: Z86.73 Personal history of transient ischemic attack (TIA), and cerebral infarction without residual deficits (principal) | CPT/HCPCS: 93306 ==

== ENCOUNTER → 2024-08-25 13:45 | Outpatient (REF) | payer OTHER, SELFPAY | LOC: RAD 13:45 | PROVIDERS: ATTENDING PHYSICIAN Nurse Practitioner Family | DX: R09.89 Other specified symptoms and signs involving the circulatory and respiratory systems (principal); E11.42 Type 2 diabetes mellitus with diabetic polyneuropathy | CPT/HCPCS: 93922; 93925 ==

== ENCOUNTER 2024-10-13 17:18 | Observation (INO) | payer OTHER, SELFPAY ==
[2024-10-13 10:41] VITALS: BP 172/55
[2024-10-13 11:18] LABS: Hematocrit 35.0 % (39.0-52.0); Hemoglobin 11.7 g/dL (13.0-18.0); Mean Corp Hgb Conc. 33.4 g/dL (33.0-37.0); Mean Corpuscular Volume 82.9 fL (80.0-94.0); Nucleated Red Blood Cells % 0 % (-); Platelet Count 257 10^3/uL (130-400); Red Cell Dist. Width 13.9 % (11.5-14.5)
[2024-10-13 11:27] LABS: ALT (SGPT) 19 U/L (0-50); AST (SGOT) 23 U/L (17-59); Albumin 3.6 g/dl (3.5-5.0); Alkaline Phosphatase 80 U/L (38-126); Blood Urea Nitrogen 18 mg/dl (9-20); Calcium 9.5 mg/dl (8.4-10.2); Carbon Dioxide 25 mmol/L (22-30); Chloride 109 mmol/L (98-107); Glucose 100 mg/dl (70-99); Potassium 4.3 mmol/L (3.5-5.1); Sodium 140 mmol/L (135-145); Total Protein 6.9 g/dl (6.3-8.2); eGFR 58.01
--- NOTE | 2024-10-13 11:46 | ED.GENMED ---
History of Present Illness
General
Chief Complaint: Failure to Thrive
Time Seen by Provider: 10/13/24 10:49
History of Present Illness
History of Present Illness:
74-year-old male with multiple comorbidities including anemia, dementia, hypertension, hyperlipidemia, CVA with left-sided weakness presenting to the emergency department for social concerns. Patient arrives with who notes since May,
patient has been home with her and she has a primary food services coordinator. She has been having difficulty managing him, he is bedbound, they have no help at home, no home care nursing. Patient's aggression has been worsening, more volatile. She notes that
she struggles to get him to take his medications. No report of any recent falls, did have a fall about a month ago. Patient himself denies any present chest pain. notes that he seems more dyspneic when standing up to transition to the
commode. No report of any fevers or known sick contacts. Patient arrives by medics, noted to be soiled and covered in stool. notes that she is moving in a week to [place], to a home that has multiple stairs, which patient will not be
able to reside in. No additional history obtained at this time
Past History
Past History
ED Past Medical History: CAD, CVA (with left sided weakness), HTN, NIDDM and Other (behavioral variant frontotemporal dementia, FEMI); Negative Renal failure (CKD2)
ED Past Surgical History: Orthopedic (left hand surgery (sutures), Left Achilles tendon repair) and Other (achilles tendon repair)
Social History
Tobacco: Non-smoker
Alcohol: None
Personal:
Living: with family
Employment: Retired
Family History
Family History: Other (Reviewed and noncontributory)
Phy Exam
Physical Exam
Physical Exam:
General: Well-appearing, no clinical signs of dehydration, nontoxic and in no acute distress
HEENT: protecting airway
Neck: appears supple
CV: Normal heart rate, regular rhythm
Resp: No accessory muscle use, no increased work of breathing, lungs clear to auscultation bilaterally
Abd: Soft and non-distended, no tenderness to palpation
Extremities: No deformities, no swelling.
Neuro: alert, disoriented. Symmetrical strength to bilateral upper and lower extremities
: deferred
Rectal: deferred
Psych: Normal affect
Skin: Intact
Course
Orders/Labs/Results
Orders:
Orders
10/13/24 10:57
Complete Blood Count/With Diff Urgent
Comprehensive Metabolic Panel Urgent
10/13/24 11:06
Case Management Consult ONCE
Case Management Consult: Discharge Planning
Urinalysis Reflex To Culture Urgent
10/13/24 11:41
CT Head W/o Iv Contrast Urgent
Comment:
Reason For Exam: increased aggression, dementia
CR Chest - 2 Views Urgent
Comment:
Reason For Exam: sob
PT Consult [Pt Eval And Treat] Urgent
Activity Level: Out of Bed-Early Mobility
Abnormal Lab Results
10/13/24
10:57
RBC 4.22 L 10^6/uL
(4.70-6.10)
Hgb 11.7 L g/dL
(13.0-18.0)
Hct 35.0 L %
(39.0-52.0)
Chloride 109 H mmol/L
(98-107)
Glucose 100 H mg/dl
(70-99)
10/13/24 10:57
10/13/24 10:57
Vital Signs
Initial and Last Documented VS:
Initial Vital Signs
Temp Pulse Resp BP Pulse Ox
98.3 F 72 18 172/55 99
10/13/24 10:41 10/13/24 10:41 10/13/24 10:41 10/13/24 10:41 10/13/24 10:41
Last Documented Vital Signs
Temp Pulse Resp BP Pulse Ox
98.3 F 62 11 124/69 97
10/13/24 10:41 10/13/24 12:00 10/13/24 11:45 10/13/24 12:00 10/13/24 11:50
MDM/Problems Addressed
MDM/Problems Addressed:
74-year-old male with history of CVA with left-sided weakness, anemia, dementia, hypertension, hyperlipidemia, diabetes presenting for social issues. Vital signs are normal.
On exam patient is resting comfortably, no acute distress. No physical signs of trauma. Patient is afebrile, nontoxic. No increased work of breathing. Patient arrives with who notes that she is unable to care for him at home and is moving
in a week to a place with multiple stairs which patient will not be able to go to, particularly since he does not walk. She is looking for additional services. Will screen with laboratory analysis to ensure no acute medical issues. Will obtain CT
brain imaging given report of increasing aggression, however ultimately suspect decompensated dementia. notes that patient has seemed more dyspneic, no present respiratory issues. Will screen with chest x-ray imaging. Case management
consulted as well as physical therapy for discharge planning
14:10 -labs unremarkable, chest x-ray without acute cardiopulmonary disease and CT brain without acute intracranial abnormality. PT recommending SNF. Case management working on finding placement. If unable to find placement today, will plan for
admission, pending placement
*Pulse Oximetry
SaO2: 97
Oxygen Mode of Delivery: Room air
Patient hypoxic: no
*Critical Care Note
Total Time (30-74mins, 75-104mins- exclusive of procedures): Not Applicable
ED Attending Note
-
Portions of this chart may have been created with voice recognition software.� Occasional wrong word or��sound alike� substitutions may have occurred due to the inherent limitations of voice recognition software.
Discharge Plan
Departure
Prescriptions:
No Action
atorvastatin 80 mg Tablet
80 mg PO QPM
tamsulosin 0.4 mg Capsule
0.4 mg PO HS
trazodone 50 mg Tablet
100 mg PO HS
amlodipine [Norvasc] 2.5 mg tablet
2.5 mg PO BID
trazodone 50 mg Tablet
25 mg PO BID@0800,1200
pantoprazole [Protonix] 20 mg Tablet,Delayed Release (Dr/Ec)
20 mg PO DAILY
furosemide 40 mg Tablet
40 mg PO DAILYPRN PRN (Reason: edema/swelling)
econazole nitrate 1 % Cream
1 applic TOPICAL DAILYPRN PRN (Reason: skin rash on feet)
cholecalciferol (vitamin D3) [Vitamin D3] 25 mcg (1,000 unit) Tablet
25 mcg PO DAILY
clotrimazole [Athlete's Foot (clotrimazole)] 1 % cream
1 applic topical BIDPRN PRN (Reason: skin rash on feet)
Referrals:
Chava Cm CRNP [Family Provider]
Interventions
Interventions:
*Risk Screen - Suicide Last Done: 10/13/24 11:12
*General Assessment Last Done: 10/13/24 11:12
*Neglect/Abuse Screening Last Done: 10/13/24 11:12
*ED- Fall Risk Assessment Last Done: 10/13/24 11:12
*ED COVID-19 Vaccine History Last Done: 10/13/24 11:12
Discharge Date and Time
Print Language: THAI
--- NOTE | 2024-10-13 11:58 | CM ---
Addendum entered by Nilam Paredes 10/13/24 17:20:
Referral also sent to [facility] and [facility] in [place], Discussed with Liaison Minoo, admission to facility cannot be processed tonight. Discussed with Dr Villela and Dr Londono, pt will be kept on observation status overnight. Pt's
daughter Joseluis is aware and will follow up with facilities in [place] in the am.
Addendum entered by Nilam Paredes 10/13/24 13:56:
PT recommended [facility], discussed with pt's , she would like referrals sent to SNF near her daughter, requested [facility] in [place]. Referral sent there and also [facility]
Original Note:
Received CM consult. Pt currently resides with in [place], 2 [facility], 2 [facility]. His states pt did not pay the mortgage and they lost the home. They need to move out by 10/20, states she bought a home in [place] and will be
moving there but she cannot take her with her, she states there are 9 steps to enter and another 13 to the second floor. Per pt does not walk.
states pt is too difficult for her to care for at home, refusing medications and incontinent. She states their daughter lives in [place] and son lives in [place] and cannot assist with care.
states she has been caring for him since May when pt was discharged from [facility] after last hospital admission. states he was getting home PT/OT but unsure of the agency. She said a MANAGER DEVELOPMENT came out once.
Discussed with Dr Londono, will await ED workup results.
PCP: Chava Cm
Pharmacy: [facility]
[2024-10-13 12:00] VITALS: BP 124/69
--- NOTE | 2024-10-13 15:44 | CON.HOSP ---
Family Physician
-
Family Physician: LOBITO Dickens
Chief Complaint
-
Inability to be cared for at home
History of Present Illness
74 y/o M with PMHx:
h/o CVAs right parietal lobe/centrum semiovale and left parieto-occipital region
Frontotemporal dementia
Essential HTN
HLD
PAD
Chronic anemia
Chronic HFpEF
DM2 with diabetic retinopathy
CKD3a
Who presents with a chief complaint of inability to be cared for at home. The patient has a history of dementia and has had increased agitation and aggression recently. He is nonambulatory at baseline. The patient's brought him to the ER
because she simply cannot care for him at home any longer. She states that he is nonambulatory at baseline. She states she is in the process of moving and they no longer have a refrigerator stove. Apparently she went to get the patient's
[employer] and came back home and he was covered in feces. Physical therapy evaluated the patient in the ER and recommended long term placement. As per case management this cannot happen today. Therefore the patient was referred for
hospitalization. Currently the patient denies any acute complaints.
Medical History
Past Medical History
Past Medical History: Reports Other (As per HPI)
Past Surgical History: Reports Other (N/A)
Social History
Tobacco: Non-smoker
Alcohol: None
Drug: None
Family History
Family History: Reviewed & Not Pertinent
Allergies / Home Medications
Allergies reflects when Allergies were last updated in [facility].
Home Medications with original date entered in [facility]
Allergy/Medication List:
Allergies
Allergy/AdvReac Type Severity Reaction Status Date / Time
No Known Allergies Allergy Verified 10/13/24 10:34
Home Medications
atorvastatin 80 mg tablet 80 mg PO QPM High Cholesterol 03/08/24
tamsulosin 0.4 mg capsule 0.4 mg PO HS Urinary Issue 03/08/24
amlodipine 2.5 mg tablet (Norvasc) 2.5 mg PO BID Blood Pressure 03/12/24
trazodone 50 mg tablet 100 mg PO HS depression/sleep 03/12/24
pantoprazole 20 mg tablet,delayed release (Protonix) 20 mg PO DAILY Gastrointestinal Issue 03/25/24
trazodone 50 mg tablet 25 mg PO BID@0800,1200 Mental Health/Anxiety 03/25/24
cholecalciferol (vitamin D3) 25 mcg (1,000 unit) tablet (Vitamin D3) 25 mcg PO DAILY Supplement 10/13/24
clotrimazole 1 % topical cream (Athlete's Foot (clotrimazole)) 1 applic topical BIDPRN PRN skin rash on feet 10/13/24
econazole nitrate 1 % topical cream 1 applic topical DAILYPRN PRN skin rash on feet 10/13/24
furosemide 40 mg tablet 40 mg PO DAILYPRN PRN edema/swelling 10/13/24
Review of Systems
-
Unable to obtain full review of systems at this time due to: Dementia
Physical Exam
Vital Signs
Vital Signs
Temp Pulse Resp BP Pulse Ox
98.3 F 62 11 124/69 97
10/13/24 10:41 10/13/24 12:00 10/13/24 11:45 10/13/24 12:00 10/13/24 11:50
Physical Exam
General: Other (.)
Laboratory Results
-
Laboratory Results
10/13/24 10:57
10/13/24 10:57
Total Bilirubin 0.8 mg/dl (0.2-1.3) 10/13/24 10:57
AST 23 U/L (17-59) 10/13/24 10:57
ALT 19 U/L (0-50) 10/13/24 10:57
Alkaline Phosphatase 80 U/L (38-126) 10/13/24 10:57
Impression / Plan
-
Gen: NAD, AAOx2.
Eyes: EOMI, PERRLA, no scleral icterus.
Neck: supple.
CV: RRR, +S1/S2, no m/r/g.
Resp: CTAB, no rales, wheezes, or rhonchi.
Abd: +BS, soft, NT, ND
Skin: No rashes.
Neuro: CN 2-12 intact, non-focal.
Psych: Normal mood and affect.
CT brain: No acute intracranial abnormalities. Small old right thalamic lacunar infarct. Findings again seen compatible with diffuse cortical atrophy with nonspecific white matter changes as described above.
CXR: Linear densities within both lower lungs, stable from most recent radiograph, compatible with scarring and/or linear atelectasis. Probable calcified pleural plaque involving the lateral left mid hemithorax, stable. Cardiomegaly with no evidence
for pulmonary edema.
Inability to be cared for at home:
- Patient has a history of dementia and has had increased agitation and aggression recently. He is nonambulatory at baseline. His brought him to the ER because she can no longer care for him.
- Physical therapy evaluated the patient in the ER and recommended long term placement. Case management had initially reported to the ER that this could not happen today. Therefore the patient was referred for hospitalization. On further
discussion with the case management department the patient will not be admitted to the hospital and will be discharged to long term directly from the ER.
- The patient currently has no laboratory or imaging abnormalities that require hospitalization. Unfortunately, patients with dementia tend to have worsening of their dementia as well as hospital-acquired delirium when they are placed in the
hospital. I agree with discharging the patient from the ER.
Continue home medications for the following chronic problems:
h/o CVAs right parietal lobe/centrum semiovale and left parieto-occipital region
Frontotemporal dementia
Essential HTN
HLD
PAD
Chronic anemia
Chronic HFpEF
DM2 with diabetic retinopathy
CKD3a
Thank you for the courtesy of this consultation.
[2024-10-13 16:38] VITALS: BP 126/73
--- NOTE | 2024-10-13 17:20 | W.PN.UPDATE ---
Update Note
Progress Note Update
Case discussed with Sakina Crockett over the phone between 1652 and 1654. In prior multidisciplinary discussions the plan was for the patient to be placed in SNF from the ER. As per my discussion with Sakina Crockett during this phone call she
reported that the pt could not be placed today and, as per discussion with Dayanna Whiteside and Charline Escoto the pt will be brought into the hospital under observation status. Orders placed by Dr. Vera. Will review.
--- NOTE | 2024-10-13 18:25 | PTCARENOTE ---
Patient received to room 432 from ED on stretcher. Patient assisted to ambulate into room with rolling walker and 2 assist. Patient with unsteady gait and is confused. Patient assisted into bed with bed alarm intact and call person in reach. Patient
educated on fall precautions and agrees to ring call person for needs/toileting assistance. Gown and socks changed (due to soiled with urine when patient incontinent of urine during ambulating to bed).
[2024-10-13 18:39] VITALS: BP 153/76; BMI 30.6
[2024-10-13 20:30] VITALS: BP 134/65
[2024-10-13] MEDS: LIPITOR 80 MG PO (20:32)
[2024-10-13] MEDS: HEPARIN SC ×2 (20:32→20:38)
[2024-10-13] MEDS: NORVASC 2.5 MG PO (20:34)
--- NOTE | 2024-10-13 22:08 | PTCARENOTE ---
When RN brought 2200 medications in for patient, RN explained what medications were ordered, what they were for and the time they were due. Patient is oriented x1-2. Patient was confused as to why he had medication due at 2200 and what they were
for. RN again reinforced medication teaching. Patient is still confused, even after reorientation. Patient is declining 2200 medications at this time saying he got medicine '3 times already'.
[2024-10-13 23:00] VITALS: BP 149/76
[2024-10-14 07:50] VITALS: BP 143/76
--- NOTE | 2024-10-14 08:36 | CM ---
Addendum entered by Katya James 10/14/24 12:03:
Patient left OBS form in room and called to patient with update. Patient provided emaill of [email or web address] CM will send OBS form
Original Note:
CM called to Liaison to determine if bed possible today, await call back and will review responses to referrals. CM will continue to follow for discharge planning needs.
Plan; SNF
[2024-10-14] MEDS: VITAMIN D3 (cholecalciferol) 25 MCG PO (08:49)
[2024-10-14] MEDS: PROTONIX 20 MG PO (08:49)
[2024-10-14] MEDS: HEPARIN 5000 UNITS SC (08:49)
[2024-10-14] MEDS: NORVASC 2.5 MG PO (08:49)
[2024-10-14] MEDS: DESYREL 25 MG PO ×2 (08:49→11:37)
[2024-10-14 08:53] LABS: Glucose - Point of Care 96 mg/dl (70-99)
--- NOTE | 2024-10-14 09:10 | W.PN.HOSP.TC ---
Addendum entered and electronically signed by Jsoe Kunz MD 10/14/24 15:47:
Total time spent on d/c = 31 min. This included today's physical exam, progress note, review of laboratory and diagnostic data, preparation of discharge documents and prescriptions, and discussions about the pt's hospital course and discharge plan
with the patient and other medical laboratory technical officer involved in the patient's care.
Original Note:
Today's Communication/Plan
-
see bold
Assessment / Plan
Assessment / Plan
Gen: NAD, awake and alert
Eyes: EOMI, PERRLA, no scleral icterus.
Neck: supple.
CV: RRR, +S1/S2, no m/r/g.
Resp: CTAB, no rales, wheezes, or rhonchi.
Abd: +BS, soft, NT, ND
Skin: No rashes.
Neuro: CN 2-12 intact, moves all 4 extremities
Psych: Normal mood and affect.
CT brain: No acute intracranial abnormalities. Small old right thalamic lacunar infarct. Findings again seen compatible with diffuse cortical atrophy with nonspecific white matter changes as described above.
CXR: Linear densities within both lower lungs, stable from most recent radiograph, compatible with scarring and/or linear atelectasis. Probable calcified pleural plaque involving the lateral left mid hemithorax, stable. Cardiomegaly with no evidence
for pulmonary edema.
Inability to be cared for at home:
- Patient has a history of dementia and has had increased agitation and aggression recently at home as per the pt's . He is nonambulatory at baseline. His brought him to the ER because she can no longer care for him.
- Physical therapy evaluated the patient in the ER and recommended assisted placement. Ultimately the patient was unable to be placed from the ER and was brought into the hospital under observation status for ongoing disposition
efforts/placement.
- The patient currently has no laboratory or imaging abnormalities that require hospitalization.
Other problems:
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
Frontotemporal dementia: supportive care
Essential HTN: cont Norvasc
HLD: Cont statin
PAD: Cont statin, add ASA
Chronic anemia
Chronic HFpEF: appears euvolemic, cont FR
DM2 with diabetic retinopathy: SSI/accuchecks/diabetic diet
CKD3a
FULL/Heparin
No indication for hospitalization, remains medically stable for discharge.
Anticipated Discharge: Today
Subjective/Interval History
-
Date of Service: October 14, 2024
Patient without acute complaints.
Objective Data
-
Vital Signs:
Vital Signs
Temp Pulse Resp BP Pulse Ox
98.2 F 68 18 143/76 99
10/14/24 07:50 10/14/24 07:50 10/14/24 07:50 10/14/24 07:50 10/14/24 07:50
I&O
10/13/24 10/14/24 10/15/24
06:59 06:59 06:59
Output Total 850 / 850
Balance -850 / -850
[2024-10-14 10:05] LABS: Glycohemoglobin (HgbA1c) 6.0 % (4.0-5.6)
[2024-10-14 11:32] LABS: Glucose - Point of Care 105 mg/dl (70-99)
[2024-10-14] MEDS: LOW STRENGTH ASPIRIN 81 MG PO (11:37)
--- NOTE | 2024-10-14 13:36 | CM ---
Clinicals faxed to [facility]-fax# [phone]
[2024-10-14 14:31] VITALS: BMI 30.6
--- NOTE | 2024-10-14 14:43 | CM ---
Addendum entered by Katya James 10/14/24 15:34:
auth approved for transfer to [facility] [id number] for 6 days and ambulance auth is [id number]. please call report to [phone] ask for nursing station and fax [phone]. emailed obs form to patient . CM will continue to
follow for discharge planning needs.
Plan; transfer to SNF today.
Original Note:
Patient accepted to [facility] [place] and CM will start auth. Mandy from [facility] called to patient and updated that when able they would work with patient about transfers to other SNF closer to patient . CM called to patient
about the acceptance and she is in aggreement for the transfer. CM will continue to follow for discharge planning needs.
Plan; SNF at [facility] today pending auth.
[2024-10-14 15:30] VITALS: BP 154/76
--- NOTE | 2024-10-14 15:47 | PTCARENOTE ---
pt is currently pending auth for [facility]. Will await for auth to go jim, then will DC
--- NOTE | 2024-10-14 15:49 | W.DCSUMMARY ---
Discharge Summary
Discharge Data
Date of Admission: 10/13/24
Date of Discharge: 10/14/24
-
Pending Results: No
Hospital Course
Primary diagnoses:
Inability to be cared for at home
Secondary diagnoses:
h/o cerebrovascular accidents in the right parietal lobe/centrum semiovale and left parieto-occipital region
Frontotemporal dementia
Essential hypertension
Hyperlipidemia
Peripheral arterial disease
Chronic anemia
Chronic heart failure with preserved ejection fraction
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
Chronic kidney disease stage 3a
Consultants:
None
Imaging:
CT brain: No acute intracranial abnormalities. Small old right thalamic lacunar infarct. Findings again seen compatible with diffuse cortical atrophy with nonspecific white matter changes as described above.
CXR: Linear densities within both lower lungs, stable from most recent radiograph, compatible with scarring and/or linear atelectasis. Probable calcified pleural plaque involving the lateral left mid hemithorax, stable. Cardiomegaly with no evidence
for pulmonary edema.
Hospital course: 74-year-old male who was brought to the ER yesterday by his as she was unable to care for him anymore. The patient had an appropriate extensive workup in the ER that did not reveal any findings that warranted hospitalization.
Unfortunately the patient could not be placed yesterday and he was brought into the hospital under observation status for ongoing disposition efforts/placement. The patient is being discharged in medically stable condition.
Discharge Plan
-
Patient Disposition: Halfway/SNF
Discharge Diagnosis/Procedures: Inability to care for himself
Condition: Good
Diet: Diabetic, Carb Controlled
Activity: With assistance
Driving Restrictions: No driving
Referrals:
Chava Cm CRNP [Family Provider] - in less than 1 week
Prescriptions:
New
amlodipine 2.5 mg Tablet
2.5 mg PO BID Qty: 0 0RF
aspirin 81 mg Tablet,Chewable
81 mg PO DAILY Qty: 1 0RF
Continued
atorvastatin 80 mg Tablet
80 mg PO QPM
tamsulosin 0.4 mg Capsule
0.4 mg PO HS
Rx Instructions:
Per home instructions, 'do not give tamsulosin and trazodone at the same time may cause chest pain.'
trazodone 50 mg Tablet
100 mg PO HS
Rx Instructions:
Per home instructions, 'do not give tamsulosin and trazodone at the same time may cause chest pain.'
trazodone 50 mg Tablet
25 mg PO BID@0800,1200
pantoprazole [Protonix] 20 mg Tablet,Delayed Release (Dr/Ec)
20 mg PO DAILY
furosemide 40 mg Tablet
40 mg PO DAILYPRN PRN (Reason: edema/swelling)
econazole nitrate 1 % Cream
1 applic TOPICAL DAILYPRN PRN (Reason: skin rash on feet)
cholecalciferol (vitamin D3) [Vitamin D3] 25 mcg (1,000 unit) Tablet
25 mcg PO DAILY
clotrimazole [Athlete's Foot (clotrimazole)] 1 % cream
1 applic topical BIDPRN PRN (Reason: skin rash on feet)
Discontinued
amlodipine [Norvasc] 2.5 mg tablet
2.5 mg PO DAILY
Discharge Orders:
Discharge Patient (As Directed); Ordered 10/14/24
Ordered By: Jose Kunz
Discharge Date and Time
Print Language: EGYPTIAN
[2024-10-14] MEDS: LIPITOR 80 MG PO (16:32)
[2024-10-14 17:10] LABS: Glucose - Point of Care 88 mg/dl (70-99)
[2024-10-14] MEDS: HEPARIN SC (19:28)
[2024-10-14 19:42] VITALS: BP 97/43
[2024-10-14] MEDS: NORVASC PO (19:43)
--- NOTE | 2024-10-14 20:07 | PTCARENOTE ---
Patient picked up by EMS for discharge at 1940. Vital signs documented. Discharge instructions reviewed with patient`s family. IV removed. Per dayshift RN, repost called to patient`s facility.
== END 2024-10-14 19:51 ==
LOC: 4 WEST ACU 17:18
PROVIDERS: ADMITTING PHYSICIAN Internal Medicine; ATTENDING PHYSICIAN Internal Medicine; EMERGENCY PHYSICIAN Student in an Organized Health Care Education/Training Program
DX: G31.09 Other frontotemporal neurocognitive disorder (principal); F02.811 Dementia in other diseases classified elsewhere, unspecified severity, with agitation; I13.0 Hypertensive heart and chronic kidney disease with heart failure and stage 1 through stage 4 chronic kidney disease, or unspecified chronic kidney disease; E78.5 Hyperlipidemia, unspecified; E11.51 Type 2 diabetes mellitus with diabetic peripheral angiopathy without gangrene; D63.1 Anemia in chronic kidney disease; I50.32 Chronic diastolic (congestive) heart failure; E11.319 Type 2 diabetes mellitus with unspecified diabetic retinopathy without macular edema; E11.22 Type 2 diabetes mellitus with diabetic chronic kidney disease; N18.31 Chronic kidney disease, stage 3a; R62.7 Adult failure to thrive; I69.354 Hemiplegia and hemiparesis following cerebral infarction affecting left non-dominant side; G47.33 Obstructive sleep apnea (adult) (pediatric); I25.10 Atherosclerotic heart disease of native coronary artery without angina pectoris; Z74.01 Bed confinement status; Z75.1 Person awaiting admission to adequate facility elsewhere; Z79.899 Other long term (current) drug therapy
CPT/HCPCS: 70450; 71046; 80053; 82962; 83036; 85025; 99285; G0378

== ENCOUNTER 2025-03-25 18:21 | Emergency (ER) | payer OTHER, SELFPAY ==
[2025-03-25] VITALS (7 sets, daily range): BP systolic 136–144; BP diastolic 72–81
--- NOTE | 2025-03-25 18:38 | ED.GENMED ---
History of Present Illness
General
Chief Complaint: Abdominal Symptoms
Source: patient
Exam Limitations: none
Time Seen by Provider: 03/25/25 18:23
History of Present Illness
History of Present Illness:
74-year-old male with history of dementia and is nonverbal per EMS presents from nursing facility after having 1 episode of dark coffee-ground emesis this morning. Patient cannot provide any valuable history. I reviewed his medical list and he is
not on any anticoagulants other than baby aspirin.
Past History
Past History
ED Past Medical History: CAD, CVA (with left sided weakness), HTN, NIDDM and Other (behavioral variant frontotemporal dementia, FEMI); Negative Renal failure (CKD2)
ED Past Surgical History: Orthopedic (left hand surgery (sutures), Left Achilles tendon repair) and Other (achilles tendon repair)
Social History
Tobacco: Non-smoker
Alcohol: None
Personal:
Living: with family
Employment: Retired
Family History
Family History: Other (Reviewed and noncontributory)
Phy Exam
Physical Exam
Physical Exam:
General: Well-appearing male no acute respiratory distress
HEENT: Normal cephalic atraumatic heart: Regular rate and rhythm
Lungs: Clear no wheeze
Abdomen is soft nontender extremities: No cyanosis
Course
Orders/Labs/Results
Orders:
Orders
03/25/25 18:30
CMP [Comprehensive Metabolic Panel] Urgent
Complete Blood Count/With Diff Urgent
03/25/25 19:37
Pantoprazole [Protonix IV] 80 mg IV NOW STA
03/25/25 20:53
CT Abd/pel Without Iv Or Oral Urgent
Comment:
Reason For Exam: vomiting
Abnormal Lab Results
03/25/25
18:30
WBC 11.4 H 10^3/uL
(4.8-10.8)
RBC 4.37 L 10^6/uL
(4.70-6.10)
Hgb 12.2 L g/dL
(13.0-18.0)
Hct 36.1 L %
(39.0-52.0)
Absolute Neuts (auto) 9.8 H 10^3/uL
(1.4-6.5)
Absolute Lymphs (auto) 1.0 L 10^3/uL
(1.2-3.4)
Neutrophils % 85.6 H %
(42.2-75.2)
Lymphocytes % 8.4 L %
(20.5-51.1)
Glucose 146 H mg/dl
(70-99)
03/25/25 18:30
03/25/25 18:30
Vital Signs
Initial and Last Documented VS:
Initial Vital Signs
BP
136/72
03/25/25 18:22
Last Documented Vital Signs
Temp Pulse Resp BP Pulse Ox
98.9 F 75 14 144/75 94
03/25/25 19:03 03/25/25 21:30 03/25/25 21:15 03/25/25 21:00 03/25/25 21:30
MDM/Problems Addressed
Differential Diagnosis Includes:
Patient per nursing facility had coffee-ground emesis x 1 episode this morning. Nontoxic on exam with stable vital signs benign assessment. Will check labs.
*Pulse Oximetry
SaO2: 97
Oxygen Mode of Delivery: Room air
Patient hypoxic: no
*Critical Care Note
Total Time (30-74mins, 75-104mins- exclusive of procedures): Not Applicable
Update Note
Update Note:
Family now in room. Received more history from family. Does have history of hernia repair palpated and seems soft will order CT scan. Rectal exam was performed of the stool was brown and heme-negative. Vital signs remained stable abdominal
assessment remains relatively benign.
CT reviewed his constipation the patient has been moving his bowels here. Reassessed patient. Vital signs remained stable he is now sleeping comfortably. Discussed with family no indication for admission. Family little uncertain about
discharging at this [facility]. Will keep him here in the emergency room overnight until the morning.
ED Attending Note
-
Portions of this chart may have been created with voice recognition software.� Occasional wrong word or��sound alike� substitutions may have occurred due to the inherent limitations of voice recognition software.
Discharge Plan
Departure
Patient Disposition: Assisted/SNF
Date of Disposition: 03/26/25
Time of Disposition: 00:45
Discharge Problem:
Vomiting
Prescriptions:
No Action
atorvastatin 80 mg Tablet
80 mg PO QPM
tamsulosin 0.4 mg Capsule
0.4 mg PO HS
Rx Instructions:
Per home instructions, 'do not give tamsulosin and trazodone at the same time may cause chest pain.'
trazodone 50 mg Tablet
100 mg PO HS
Rx Instructions:
Per home instructions, 'do not give tamsulosin and trazodone at the same time may cause chest pain.'
trazodone 50 mg Tablet
25 mg PO BID@0800,1200
pantoprazole [Protonix] 20 mg Tablet,Delayed Release (Dr/Ec)
20 mg PO DAILY
furosemide 40 mg Tablet
40 mg PO DAILYPRN PRN (Reason: edema/swelling)
econazole nitrate 1 % Cream
1 applic TOPICAL DAILYPRN PRN (Reason: skin rash on feet)
cholecalciferol (vitamin D3) [Vitamin D3] 25 mcg (1,000 unit) Tablet
25 mcg PO DAILY
clotrimazole [Athlete's Foot (clotrimazole)] 1 % cream
1 applic topical BIDPRN PRN (Reason: skin rash on feet)
amlodipine 2.5 mg Tablet
2.5 mg PO BID Qty: 0 0RF
aspirin 81 mg Tablet,Chewable
81 mg PO DAILY Qty: 1 0RF
Referrals:
Maureen Thapa MD [Family Provider]
Activity Restrictions/Additional Instructions:
Return here if needed
Interventions
Interventions:
*General Assessment Last Done: 03/25/25 18:23
*Neglect/Abuse Screening Last Done: 03/25/25 18:23
*ED COVID-19 Vaccine History Last Done: 03/25/25 18:23
*ED Influenza Vaccine History Last Done: 03/25/25 18:23
[facility] Risk Assessment Tool Last Done: 03/25/25 18:23
*Risk Screen - Suicide (C-SSRS) Last Done: 03/25/25 18:23
YG-Xzdnvl-Wpsebtodbv Assessment Last Done: 03/25/25 23:47
Discharge Date and Time
Print Language: CROATIAN
[2025-03-25 18:43] LABS: Hematocrit 36.1 % (39.0-52.0); Hemoglobin 12.2 g/dL (13.0-18.0); Mean Corp Hgb Conc. 33.8 g/dL (33.0-37.0); Mean Corpuscular Volume 82.6 fL (80.0-94.0); Nucleated Red Blood Cells % 0 % (-); Platelet Count 296 10^3/uL (130-400); Red Cell Dist. Width 13.7 % (11.5-14.5)
[2025-03-25 19:01] LABS: ALT (SGPT) 16 U/L (0-50); AST (SGOT) 19 U/L (17-59); Albumin 3.5 g/dl (3.5-5.0); Alkaline Phosphatase 81 U/L (38-126); Blood Urea Nitrogen 18 mg/dl (9-20); Calcium 9.6 mg/dl (8.4-10.2); Carbon Dioxide 25 mmol/L (22-30); Chloride 104 mmol/L (98-107); Glucose 146 mg/dl (70-99); Potassium 4.3 mmol/L (3.5-5.1); Sodium 138 mmol/L (135-145); Total Protein 7.0 g/dl (6.3-8.2); eGFR > 60.00
[2025-03-25] MEDS: PROTONIX IV 80 MG IV (20:41)
[2025-03-26] VITALS: BP 134/95
[2025-03-26 01:00] VITALS: BP 151/61
[2025-03-26 04:00] VITALS: BP 130/81
[2025-03-26 05:35] VITALS: BP 148/95
== END 2025-03-26 05:54 ==
LOC: EMR 18:21
PROVIDERS: Physician Assistant; EMERGENCY PHYSICIAN Emergency Medicine; FAMILY PHYSICIAN Internal Medicine
DX: R11.2 Nausea with vomiting, unspecified (principal); I25.10 Atherosclerotic heart disease of native coronary artery without angina pectoris; E11.9 Type 2 diabetes mellitus without complications; F02.80 Dementia in other diseases classified elsewhere, unspecified severity, without behavioral disturbance, psychotic disturbance, mood disturbance, and anxiety; G47.33 Obstructive sleep apnea (adult) (pediatric); I10 Essential (primary) hypertension; I69.354 Hemiplegia and hemiparesis following cerebral infarction affecting left non-dominant side
CPT/HCPCS: 96374; 99284; 74176; 80053; 85025